=== PATIENT | female | born 1950 | race Caucasian/White ===

== ENCOUNTER → 2020-08-11 10:39 | Outpatient (BNVA) | payer MEDICARE, SELFPAY | PROVIDERS: PCP Internal Medicine; Visit Provider Internal Medicine | DX: I25.10 Atherosclerotic heart disease of native coronary artery without angina pectoris (principal); I73.9 Peripheral vascular disease, unspecified; I10 Essential (primary) hypertension; I05.9 Rheumatic mitral valve disease, unspecified | CPT/HCPCS: 93005; 99212 ==

== ENCOUNTER → 2021-02-04 10:41 | Outpatient (BNVA) | payer MEDICARE, SELFPAY | PROVIDERS: PCP Internal Medicine; Referring Provider Internal Medicine; Visit Provider Internal Medicine | DX: I25.10 Atherosclerotic heart disease of native coronary artery without angina pectoris (principal); I73.9 Peripheral vascular disease, unspecified; I05.9 Rheumatic mitral valve disease, unspecified; I10 Essential (primary) hypertension | CPT/HCPCS: 99212 ==

== ENCOUNTER → 2021-03-12 07:54 | Outpatient (REF) | payer MEDICARE, OTHER, SELFPAY ==
--- NOTE | ~2021-03-12 | NM_ITS ---
Lexiscan Myocardial perfusion study Indication: Preoperative cardiovascular evaluation Technique: The patient was brought in for a Lexiscan perfusion study on 03/12/2021 and was injected 0.4 mg of Lexiscan intravenously. Within a minute of this injection 30 mCi of sestamibi was given intravenously. Images were obtained using the SPECT gamma camera interlaced with the gating device. Images were obtained in supine position. Resting perfusion study was performed on 03/15/2021. Patient was administered 30 mCi of sestamibi intravenously at rest. Images were then obtained in supine position. Total DLP 103mGy-cm. Images were processed with the software and compared side to side in short axis, horizontal long axis and vertical long axis views. Findings: Raw acquisition was reviewed. The stress perfusion study showed slightly reduced tracer uptake in the mid to distal septum, anterior wall and lateral wall, basal inferior wall. However, with CT attenuation correction, there is significant improvement and hence most likely all soft tissue and diaphragmatic attenuation. The gated study shows normal LV systolic function with calculated LVEF of 64%. LV cavity is normal in size. The gated study shows normal wall thickening and contraction of segments. Resting study shows slightly decreased tracer uptake in the mid to distal anterior septum, distal anterior wall, basal to mid inferolateral wall. There is significant improvement with CT attenuation correction. Gating at rest reveals normal wall motion with ejection fraction at 68%. The findings are consistent with no definite reversible or fixed perfusion defects. RI/NM cardiolite stress test Impression: 1. Myocardial perfusion imaging study shows likely normal myocardial perfusion. No definitive evidence of any ischemia or infarction. 2. Gated LVEF is 64% during stress and 68% during rest. 3. Transient ischemic dilatation not present. EKG component of the test reported separately.
--- NOTE | 2021-03-12 08:03 | CA_ITS ---
Acquisition Time: 2021-03-12 08:16:23 Total Exercise Time: 00:02:00 Test Indications: PREOP Medications: SEE CHART Protocol: LEXISCAN Max HR: 109 BPM 73% of Pred: 149 BPM Max BP: 118/066 mmHG Max Work Load: 1.0 METS Pharmacological stress test with Lexican injection, while sitting and kicking her legs, without anginal symptoms, with isolated PACs and PVCs, with normotensive response to injection, with nondiagnostic EKG for ischemia. Nuclear images pending. Test reviewed with Dr Tran. Referred By: David Christensen Overread By: ILDA PARISH
== END ==
LOC: HO.CARD 07:54
PROVIDERS: PCP Internal Medicine; Visit Provider Internal Medicine
DX: Z01.810 Encounter for preprocedural cardiovascular examination (principal); I25.10 Atherosclerotic heart disease of native coronary artery without angina pectoris
CPT/HCPCS: 78452; 93017; A9500; J0280; J2785

== ENCOUNTER → 2021-08-04 09:57 | Outpatient (BNVA) | payer MEDICARE, SELFPAY | PROVIDERS: PCP Internal Medicine; Referring Provider Internal Medicine; Visit Provider Internal Medicine | DX: I25.10 Atherosclerotic heart disease of native coronary artery without angina pectoris (principal); I73.9 Peripheral vascular disease, unspecified; I35.8 Other nonrheumatic aortic valve disorders; I05.9 Rheumatic mitral valve disease, unspecified; I10 Essential (primary) hypertension | CPT/HCPCS: 93005; 99212 ==

== ENCOUNTER → 2022-01-27 10:19 | Outpatient (BNVA) | payer MEDICARE, SELFPAY | PROVIDERS: PCP Internal Medicine; Referring Provider Internal Medicine; Visit Provider Internal Medicine | DX: I25.10 Atherosclerotic heart disease of native coronary artery without angina pectoris (principal); I73.9 Peripheral vascular disease, unspecified; I10 Essential (primary) hypertension; I05.9 Rheumatic mitral valve disease, unspecified; I35.8 Other nonrheumatic aortic valve disorders; Z79.899 Other long term (current) drug therapy | CPT/HCPCS: 99212 ==

== ENCOUNTER → 2022-09-13 10:29 | Outpatient (BNVA) | payer MEDICARE, SELFPAY | PROVIDERS: PCP Internal Medicine; Referring Provider Internal Medicine; Visit Provider Internal Medicine | DX: I25.10 Atherosclerotic heart disease of native coronary artery without angina pectoris (principal); I73.9 Peripheral vascular disease, unspecified; I10 Essential (primary) hypertension; I05.9 Rheumatic mitral valve disease, unspecified; I35.8 Other nonrheumatic aortic valve disorders | CPT/HCPCS: 93005; 99212 ==

== ENCOUNTER 2023-03-23 09:10 | Outpatient (AMB) | payer MEDICARE, SELFPAY ==
[2023-03-23 09:11] VITALS: BP 136/58; PULSE 67; BMI 32.8
--- NOTE | 2023-03-23 09:11 | A.OFFVIS_ITS ---
Intake Vital Signs 03/23/23 09:11 Height 5 ft 5 in Weight 197 lb 1.492 oz BMI 32.8 BP 136/58 L Blood Pressure Location Lt brachial Position Sitting Pulse 67 Intake Visit Reasons: 6 mth s/p lipids Intake Note: 6 month follow up Edge Worker Required: No Accompanied by: Self / Same As Patient Allergies lisinopril Adverse Reaction (Unknown, Verified 03/23/23 09:17) Cough Medication List - Last Reconciled 03/23/23 by David Christensen MD amlodipine 10 mg PO DAILY aspirin 81 mg PO DAILY carvedilol 12.5 mg PO BID cilostazol 100 mg PO BID clopidogrel 75 mg PO DAILY losartan 100 mg PO DAILY rosuvastatin 40 mg PO DAILY HPI HPI Comments History of Present Illness Details Leslie returns for follow-up. To recall, she had peripheral angiogram with left iliac artery stenting 2016. However that was complicated by massive blood loss leading to hypovolemic shock. In that context, she had a non ST elevation myocardial infarction suspected to be from demand. But she was able to recover eventually. She states that she is overall doing quite good. No anginal-type symptoms or shortness of breath or in fact anything cardiac sounding. She lives in a 2nd floor unit and goes up and down with no issues and definitely no chest pains. [facility] Medical History (Updated 08/04/21 @ 11:28 by David Christensen MD) Essential hypertension Peripheral vascular disease Atherosclerotic cardiovascular disease Surgical History History of carotid endarterectomy (~03/2019) Family History Father No problems noted. Mother No problems noted. Social History Alcohol intake: current Alcohol intake frequency: holidays/special occasions only Patient Tobacco Use Status: Former Tobacco user Quit Date: Feb 2017 Years Smoked: 50 +/- Review of Systems Const Denies weakness ENT Denies dizziness Card Denies chest pain, Denies chest pain with activity, Denies syncope, Denies rapid heart rate, Denies pedal edema, Denies edema, Denies leg edema, Denies lightheadedness, Denies palpitations, Denies dyspnea, Denies dyspnea on exertion and Denies orthopnea Resp Denies cough, Denies dyspnea and Denies dyspnea on exertion GI Denies hematochezia and Denies change in stool character Musc Denies abnormal gait, Denies muscle cramps, Denies muscle weakness, Denies numbness, Denies radiating pain into limb and Denies tingling Neuro Denies abnormal gait, Denies dizziness, Denies syncope, Denies numbness, Denies tingling and Denies weakness Endo Denies palpitations Physical Exam Vital Signs: Last Vital Signs Pulse 67 03/23/23 09:11 BP 136/58 L 03/23/23 09:11 BMI result Body Mass Index 32.8 Const General: comfortable and no acute distress Orientation/consciousness: patient oriented x3 HEENT Other: Unremarkable Head: Yes normal to inspection Neck Neck: Yes normal visual inspection Chest Chest palpation & inspection: normal inspection of the chest Resp Auscultation: clear to auscultation bilaterally Cardio Palpation: normal PMI Heart sounds: S1 normal heart sound present, S2 normal heart sound present, no gallops, Murmur heart sound present systolic III/ and at the right sternal border and no rubs GI Palpation (GI): Soft to palpation Back/Spine/Pelvis Other: unremarkable Skin General skin exam: no rashes or lesions noted Neuro General: patient oriented x3 Extrem General: Yes normal to inspection Psych Mental Status: mental status grossly normal Assessment & Plan Assessment & Plan (1) Atherosclerotic cardiovascular disease: Code(s): I25.10 - Atherosclerotic heart disease of [place] coronary artery without angina pectoris Plan: Myocardial perfusion imaging for 2020 without any clear abnormalities. Overall, treat for stable vascular disease. Continue statins. Lipids are well controlled. (2) Peripheral vascular disease: Code(s): I73.9 - Peripheral vascular disease, unspecified Plan: She has had carotid endarterectomy in the left side. Her vascular issues now being followed at [facility]. She remains on long-term dual antiplatelet therapy. (3) Essential hypertension: Code(s): I10 - Essential (primary) hypertension Plan: On carvedilol, amlodipine, losartan. No changes. (4) Mitral valve annular calcification: Code(s): I05.9 - Rheumatic mitral valve disease, unspecified Plan: Last echo with mitral annular calcification but no mitral stenosis. If necessary, we can recheck. (5) Aortic valve sclerosis: Code(s): I35.8 - Other nonrheumatic aortic valve disorders Plan: Mild aortic valve calcification but no significant stenosis. Coding Level of Care Code Est Pt Level 4 (41368) Diagnoses Atherosclerotic cardiovascular disease I25.10 Peripheral vascular disease I73.9 Essential hypertension I10 Mitral valve annular calcification I05.9 Aortic valve sclerosis I35.8
== END 2023-03-23 09:27 | disposition home or self-care (01) ==
PROVIDERS: Visit Provider Internal Medicine
DX: I25.10 Atherosclerotic heart disease of native coronary artery without angina pectoris (principal); I73.9 Peripheral vascular disease, unspecified; I10 Essential (primary) hypertension; I05.9 Rheumatic mitral valve disease, unspecified; I35.8 Other nonrheumatic aortic valve disorders
CPT/HCPCS: 99214

== ENCOUNTER → 2023-03-23 09:10 | Outpatient (BNVA) | payer MEDICARE, SELFPAY | PROVIDERS: Visit Provider Internal Medicine | DX: I25.10 Atherosclerotic heart disease of native coronary artery without angina pectoris (principal); I10 Essential (primary) hypertension; I05.9 Rheumatic mitral valve disease, unspecified; I35.8 Other nonrheumatic aortic valve disorders; I73.9 Peripheral vascular disease, unspecified; Z95.5 Presence of coronary angioplasty implant and graft; Z87.891 Personal history of nicotine dependence | CPT/HCPCS: 99212 ==

== ENCOUNTER 2023-11-22 14:18 | Outpatient (AMB) | payer MEDICARE, SELFPAY ==
--- NOTE | 2023-11-22 14:18 | MHC.OFFVIS ---
Vital Signs 11/22/23 14:20 Height 5 ft 5 in Weight 188 lb BMI 31.3 BP not taken reason Patient Refused Intake Visit Reasons: Pre-op//[place]. bronchoscopy radial EBUS11/27 Record Systems Analyst Required: No Allergies lisinopril Adverse Reaction (Unknown, Verified 03/23/23 09:17) Cough Medication List - Last Reconciled 11/22/23 by David Christensen MD amlodipine 10 mg PO DAILY aspirin 81 mg PO DAILY carvedilol 12.5 mg PO BID cilostazol 100 mg PO BID clopidogrel 75 mg PO DAILY losartan 100 mg PO DAILY rosuvastatin 40 mg PO DAILY solifenacin (Vesicare) 5 mg PO DAILY HPI Comments Details: We got an urgent request for preoperative evaluation for thoracic surgery planned on 11/27. We requested her to come today for office visit, but she is unable to, and hence we did a tele visit/telephone only without video. To recall, she had peripheral angiogram with left iliac artery stenting 2016. However that was complicated by massive blood loss leading to hypovolemic shock. In that context, she had a non ST elevation myocardial infarction suspected to be from demand. But she was able to recover eventually. Otherwise, she states she generally doing fine. Really has not had any chest pain or shortness of breath or any other cardiac symptoms. She can go up 2 flights of stairs with no symptoms. [facility] Medical History (Updated 08/04/21 @ 11:28 by David Christensen MD) Essential hypertension Peripheral vascular disease Atherosclerotic cardiovascular disease Surgical History History of carotid endarterectomy (~03/2019) Family History Father No problems noted. Mother No problems noted. Social History Alcohol intake: current Alcohol intake frequency: holidays/special occasions only Patient Tobacco Use Status: Former Tobacco user Years Smoked: 50 +/- Review of Systems Const All systems reviewed & are unremarkable except as noted in HPI and below Reports as per HPI and Reports no additional complaints Eyes Reports as per HPI and Denies no additional complaints ENT Denies no additional complaints and Reports as per HPI Card Reports as per HPI, Reports no additional complaints, Denies acrocyanosis, Denies chest pain, Denies leg edema, Denies lightheadedness, Denies palpitations and Denies dyspnea Resp Reports as per HPI, Denies no additional complaints and Denies dyspnea GI Reports as per HPI and Denies no additional complaints Reports as per HPI Musc Reports no additional complaints and Reports as per HPI Skin/Breast Reports system reviewed and no additional complaints, except as documented Neuro Reports no additional complaints and Reports as per HPI Psych Reports no additional complaints and Reports as per HPI Endo Reports no additional complaints, Reports as per HPI and Denies palpitations Edward/Lymph Reports no additional complaints and Reports as per HPI Aller/Immun Reports no additional complaints and Reports as per HPI Physical Exam Vital Signs: BMI result Body Mass Index 31.3 Telehealth Telehealth Telehealth Platform: Telephone Location of provider rendering services: practice address Location of patient: address on file Patient Identification confirmed using: Name, : Yes Telehealth method: voice only Patient verbally consented to treatment: Yes Patient verbally consented to billing insurance company: Yes Patient informed of any privacy concerns related to visit: Yes Assessment & Plan Assessment & Plan (1) Preoperative cardiovascular examination: Code(s): Z01.810 - Encounter for preprocedural cardiovascular examination Category: Medical Plan: Plan for lung surgery noted. There is a risk of perioperative myocardial infarction and its associated complications. Discussed about that with patient and she understands. Cardiac risk considered to be intermediate. Recent EKG from [place]-sinus rhythm at 60/Min; leftward axis; cannot exclude old anterior infarct but could be from body habitus, lead placement. Slight nonspecific changes in lead 1/aVL but otherwise unremarkable. (2) Atherosclerotic cardiovascular disease: Code(s): I25.10 - Atherosclerotic heart disease of [place] coronary artery without angina pectoris Category: Medical Plan: Clinically, no angina. Myocardial perfusion imaging 2020 without any clear abnormalities. Echocardiogram 22-[facility] [place] shows LVEF of 60-65% with moderate to severe LVH. Overall, treat for stable vascular disease. Continue statins. Lipids are well controlled. (3) Peripheral vascular disease: Code(s): I73.9 - Peripheral vascular disease, unspecified Category: Medical Plan: She has had carotid endarterectomy in the left side. Her vascular issues now being followed at [facility] [place]. She remains on long-term dual antiplatelet therapy. (4) Essential hypertension: Code(s): I10 - Essential (primary) hypertension Category: Medical Plan: On carvedilol, amlodipine, losartan. No changes. Plan Total time spent including review of pertinent data, [facility] records, counseling, documentation, coordination of care-40 minutes. Time spent with patient 15 minutes. Coding Level of Care Code Tele Est Pt Level 4 (85828) Diagnoses Preoperative cardiovascular examination Z01.810 Atherosclerotic cardiovascular disease I25.10 Peripheral vascular disease I73.9 Essential hypertension I10
[2023-11-22 14:20] VITALS: BMI 31.3
== END 2023-11-22 15:08 | disposition home or self-care (01) ==
LOC: HO.HCS 14:18
PROVIDERS: PCP Internal Medicine; Visit Provider Internal Medicine
DX: I25.10 Atherosclerotic heart disease of native coronary artery without angina pectoris (principal); I73.9 Peripheral vascular disease, unspecified; I10 Essential (primary) hypertension; Z01.810 Encounter for preprocedural cardiovascular examination
CPT/HCPCS: 99442

== ENCOUNTER → 2023-11-22 14:18 | Outpatient (BNVA) | payer MEDICARE, SELFPAY | PROVIDERS: PCP Internal Medicine; Visit Provider Internal Medicine ==

== ENCOUNTER 2023-12-25 13:21 | Outpatient (AMB) | payer MEDICARE, SELFPAY ==
[2023-12-25 13:23] VITALS: BP 170/68; PULSE 54; O2SAT 96; BMI 29.9
--- NOTE | 2023-12-25 13:23 | A.OFFVIS_ITS ---
Vital Signs 12/25/23 13:23 Height 5 ft 5 in Weight 179 lb 10.828 oz BMI 29.9 BP 170/68 H Blood Pressure Location Lt brachial Position Sitting Pulse 54 Pulse Source Pulse Oximeter Pulse Oximetry (%) 96 Oxygen Delivery Method Room Air Intake Visit Reasons: RAMIREZ Allergies lisinopril Adverse Reaction (Unknown, Verified 12/25/23 13:28) Cough HPI HPI RAMIREZ: Details: Leslie is pleasant 73 year old female, former smoker, quit 2017 with approximately 70 pack year history with underlying COPD, HTN, HLD, PAD and MD 2017. She was referred by PCP for pulmonary evaluation. She is enrolled in the lung cancer screening program through [facility] and annual screen from 07/2023 revealed new 7 x 9 mm LLL nodule. Repeat chest CT 10/2023 revealed increasing nodule measuring 13 x [address] Mcleod performed EBUS on 11/28/23 which revealed stage 1A squamous cell carcinoma with subsequent left low er lobe wedge resection. Per referral patient will be scheduled for repeat chest CT in 6 months and monitored x 5 years, however [facility] is no longer contracted with her insurance. At this time, she feels respiratory symptoms have been well controlled, occasionally having dyspnea on exertion and intermittent dry cough with wheezing. She is not interested in a daily inhaler at this time. Presurgery spirometry revealed FEV1 62%, DLCOVA 61%. After surgery she required supplemental oxygen however checks oxygen frequently never decreasing below 94%. She denies prior history of asthma. She reports father smoker with h/o COPD, no h/o lung cancers. [facility] Medical History (Updated 12/26/23 @ 10:24 by Tahira Ramirez NP) Essential hypertension Peripheral vascular disease Atherosclerotic cardiovascular disease Surgical History History of carotid endarterectomy (~03/2019) Family History Father No problems noted. Mother No problems noted. Social History Alcohol intake: current Alcohol intake frequency: holidays/special occasions only Patient Tobacco Use Status: Former Tobacco user Years Smoked: 50 +/- Review of Systems Const Denies chills, Denies excessive sweating, Denies fever(s), Denies headache(s) and Denies night sweats Eyes Denies dry eyes, Denies irritation and Denies itchy eyes ENT Reports Normal hearing present, Denies headache(s), Denies nasal congestion, Denies nasal discharge, Denies post nasal drip and Denies sore throat Card Denies chest pain, Denies chest pain at rest, Denies chest pain with activity, Denies claudication, Denies leg edema, Denies dyspnea, Reports dyspnea on exertion, Denies orthopnea and Denies paroxysmal nocturnal dyspnea Resp Denies chest congestion, Denies cough, Denies excessive phlegm production, Denies pain on inspiration, Denies pain with cough, Denies dyspnea, Reports dyspnea on exertion, Denies stridor and Denies wheezing Musc Denies myalgias Neuro Reports Normal hearing present and Denies headache(s) Endo Denies excessive sweating Edward/Lymph Denies lymphadenopathy Aller/Immun Denies itchy eyes, Denies seasonal rhinorrhea and Denies wheezing Physical Exam Vital Signs: Last Vital Signs Pulse 54 12/25/23 13:23 BP 170/68 H 12/25/23 13:23 Pulse Ox 96 12/25/23 13:23 Oxygen Delivery Method Room Air 12/25/23 13:23 BMI result Body Mass Index 29.9 Const General: cooperative, healthy appearing, comfortable, no acute distress, well developed and alert Nutritional Appearance: obese Orientation/consciousness: patient oriented x3 Limitations: no limitations HEENT Head: Yes normal to inspection, Yes normocephalic and Yes atraumatic Ears: hearing grossly normal bilaterally and external ears normal Eyes General: appearance normal, both eyes and all related structures Eyelids: Yes eyelids normal Sclerae: sclerae normal EOM: EOMs intact bilaterally Neck Neck: Yes normal visual inspection and Yes no lymphadenopathy Lymphatic: no lymphadenopathy noted Chest Chest palpation & inspection: normal inspection of the chest Resp Effort & Inspection: normal respiratory effort, able to speak in complete sentences, no audible wheezes, no cough, no stridor, not tachypneic, no tripod positioning and no use of accessory muscles Auscultation: clear to auscultation bilaterally Cardio Jugular venous distension: no JVD Rate: regular rate Rhythm: regular rhythm Skin Other: warm, dry General skin exam: no rashes or lesions noted Neuro General: patient oriented x3 Cranial nerves: Yes Normal hearing present Cognition (Neuro): normal cognition Gait exam (Neuro): Normal gait present Extrem General: Yes normal to inspection, Yes capillary refill normal, Yes no clubbing, cyanosis or edema and Yes no pedal edema Psych Appearance: grossly normal and well kempt Speech and movement: Normal speech and movement present and Clear speech present Affect: normal affect Attitude: cooperative Thought process: Normal thought process present Thought content: Normal thought content present Insight: Good insight present (Psych) Judgement: Good judgement present (Psych) Assessment & Plan Assessment & Plan (1) COPD (chronic obstructive pulmonary disease): Code(s): J44.9 - Chronic obstructive pulmonary disease, unspecified Category: Medical (2) Personal history of tobacco use: Code(s): Z87.891 - Personal history of nicotine dependence Category: Social Hx (3) Lung cancer: Code(s): C34.90 - Malignant neoplasm of unspecified part of unspecified bronchus or lung Category: Medical (4) S/P partial lobectomy of lung: Comment: LLL wedge resection 11/2023 Code(s): Z90.2 - Acquired absence of lung [part of] Category: Surgical Plan Leslie presents for pulmonary evaluation for moderate COPD and recent diagnosis of stage 1A squamous cell carcinoma s/p LLL wedge resection 11/2023. At this time she reports occasional dyspnea on exertion, otherwise respiratory symptoms are controlled. We discussed initiating a daily inhaler however she declined at this time. She is aware to call if symptoms become more persistent. She has been checking oxygen saturation frequently, never below 94%. She is supposed to have a [address] s/p wedge resection to be scheduled at [facility] but there are insurance issues. Will send for repeat chest CT at [facility]. She is aware that the recommendations for stage 1A, is surveillance [address] x 2 years followed by annual scans until 5 years. She is requesting a referral to oncology to further workup. Will enter this. All questions were answered and patient is in agreement of plan. Will follow up to review chest CT results or sooner if needed. Orders: Orders CT chest wo IV con 5 Months C34.90 - Malignant neoplasm of unspecified part of unspecified bronchus or lung, Z90.2 - Acquired absence of lung [part of] Referrals Hematology & Oncology Referral C34.90 - Malignant neoplasm of unspecified part of unspecified bronchus or lung, Z87.891 - Personal history of nicotine dependence, Z90.2 - Acquired absence of lung [part of] Coding Level of Care Code New Pt Level 4 (43543) Diagnoses COPD (chronic obstructive pulmonary disease) J44.9 Personal history of tobacco use Z87.891 Lung cancer C34.90 S/P partial lobectomy of lung Z90.2
== END 2023-12-25 14:00 | disposition home or self-care (01) ==
PROVIDERS: PCP Internal Medicine; Visit Provider Nurse Practitioner Family
DX: J44.9 Chronic obstructive pulmonary disease, unspecified (principal); Z87.891 Personal history of nicotine dependence; C34.90 Malignant neoplasm of unspecified part of unspecified bronchus or lung; Z90.2 Acquired absence of lung [part of]
CPT/HCPCS: 99204; 99214

== ENCOUNTER → 2023-12-25 13:21 | Outpatient (BNVA) | payer MEDICARE, SELFPAY | PROVIDERS: PCP Internal Medicine; Visit Provider Nurse Practitioner Family | DX: J44.9 Chronic obstructive pulmonary disease, unspecified (principal); C34.90 Malignant neoplasm of unspecified part of unspecified bronchus or lung; Z90.2 Acquired absence of lung [part of]; Z87.891 Personal history of nicotine dependence | CPT/HCPCS: 99202 ==

== ENCOUNTER → 2024-01-22 08:11 | Outpatient (BNV) | payer MEDICARE, SELFPAY | PROVIDERS: Referring Provider Nurse Practitioner Family; Visit Provider Internal Medicine | DX: C34.90 Malignant neoplasm of unspecified part of unspecified bronchus or lung (principal) | CPT/HCPCS: 99205; G2211 ==

== ENCOUNTER 2024-06-10 13:46 | Outpatient (AMB) | payer MEDICARE, SELFPAY ==
--- NOTE | 2024-06-10 14:06 | MHC.OFFVIS ---
Vital Signs 06/10/24 14:12 Height 5 ft 5 in Weight 194 lb 7.163 oz BMI 32.4 BP 120/76 Blood Pressure Location Rt brachial Position Sitting Pulse 63 Intake Visit Reasons: 1 year fu Inclusion Internship Required: No Accompanied by: Self / Same As Patient Allergies lisinopril Adverse Reaction (Unknown, Verified 01/22/24 08:21) Cough Medication List - Last Reconciled 06/10/24 by David Christensen MD amlodipine 10 mg PO DAILY aspirin 81 mg PO DAILY carvedilol 12.5 mg PO BID cilostazol 100 mg PO BID clopidogrel 75 mg PO DAILY losartan 100 mg PO DAILY rosuvastatin 40 mg PO DAILY solifenacin (Vesicare) 5 mg PO DAILY HPI Comments Details: Leslie returns for follow-up regarding vascular disease. To recall, she had peripheral angiogram with left iliac artery stenting 2016. However that was complicated by massive blood loss leading to hypovolemic shock. In that context, she had a non ST elevation myocardial infarction suspected to be from demand. But she was able to recover eventually. In November of 2023, she underwent VATS with lobectomy for lung cancer. Apparently that went well without any issues. Overall, she states she is doing good. No cardiac complaints at this time. [facility] Medical History (Updated 01/22/24 @ 09:10 by Elizabeth Duran MD) Essential hypertension Peripheral vascular disease Atherosclerotic cardiovascular disease Surgical History S/P lobectomy of lung (~11/13/23) History of carotid endarterectomy (~03/2019) Family History Father No problems noted. Mother No problems noted. Social History Household Members: None Alcohol intake: current Alcohol intake frequency: holidays/special occasions only Patient Tobacco Use Status: Former Tobacco user Years Smoked: 50 +/- service: No Current occupational status: retired Review of Systems Const Denies chills, Denies fatigue, Denies fever(s), Denies weight gain and Denies weight loss ENT Denies dizziness Card Denies chest pain, Denies leg edema, Denies lightheadedness, Denies palpitations, Reports dyspnea, Denies dyspnea on exertion, Denies orthopnea and Denies other Resp Denies cough, Reports dyspnea and Denies dyspnea on exertion GI Denies hematochezia and Denies change in stool character Musc Denies abnormal gait, Denies muscle weakness, Denies numbness, Denies radiating pain into limb and Denies tingling Neuro Denies abnormal gait, Denies dizziness, Denies numbness and Denies tingling Endo Denies fatigue and Denies palpitations Physical Exam Vital Signs: Last Vital Signs Pulse 63 06/10/24 14:12 BP 120/76 06/10/24 14:12 BMI result Body Mass Index 32.4 Const General: comfortable and no acute distress Orientation/consciousness: patient oriented x3 HEENT Other: Unremarkable Head: Yes normal to inspection Neck Neck: Yes normal visual inspection Chest Chest palpation & inspection: normal inspection of the chest Resp Auscultation: clear to auscultation bilaterally Cardio Palpation: normal PMI Heart sounds: S1 normal heart sound present, S2 normal heart sound present, no gallops, Murmur heart sound present systolic III/ and at the right sternal border and no rubs GI Palpation (GI): Soft to palpation Back/Spine/Pelvis Other: unremarkable Skin General skin exam: no rashes or lesions noted Neuro General: patient oriented x3 Extrem General: Yes normal to inspection Psych Mental Status: mental status grossly normal Office Procedures EKG Details: EKG shows sinus rhythm, 63/Min, sinus arrhythmia, leftward axis, cannot exclude old septal infarct, nonspecific ST-T changes; [place] LA/[place]. [id number], Complete Assessment & Plan Assessment & Plan (1) Atherosclerotic cardiovascular disease: Code(s): I25.10 - Atherosclerotic heart disease of [place] coronary artery without angina pectoris Category: Medical Plan: Clinically, no angina. Myocardial perfusion imaging 2020 without any clear abnormalities. Echocardiogram 22-[facility] shows LVEF of 60-65% with moderate to severe LVH. Overall, treat for stable vascular disease. Continue statins. Lipids are well controlled. (2) Peripheral vascular disease: Code(s): I73.9 - Peripheral vascular disease, unspecified Category: Medical Plan: She has had carotid endarterectomy in the left side. Her vascular issues now being followed at [facility]. She remains on long-term dual antiplatelet therapy. (3) Essential hypertension: Code(s): I10 - Essential (primary) hypertension Category: Medical Plan: On carvedilol, amlodipine, losartan. No changes. Orders: Orders CA echo transthoracic complete 6 Months I25.10 - Atherosclerotic heart disease of [place] coronary artery without angina pectoris Coding Level of Care Code Est Pt Level 4 (77186) Diagnoses Atherosclerotic cardiovascular disease I25.10 Peripheral vascular disease I73.9 Essential hypertension I10 CPT Codes EKG - CPT: 65429-[id number], Complete ([id number])
[2024-06-10 14:12] VITALS: BP 120/76; PULSE 63; BMI 32.4
--- OUTSIDE RECORDS SUMMARY | 2024-06-10 18:28 | XMS_ITS | Clinical Summary ---
Author Organization [address] [facility] Address [address] [place] [address] Phone Care Team Providers Care Metal Bumper Name Role Phone Bibiana Hall MD Primary Care Provider [phone] Allergies Active Allergy Reactions Criticality Noted Date Comments Lisinopril 06/13/2018 Medications Medication Sig Dispensed Refills Start Date End Date Status rosuvastatin (CRESTOR) 40 mg tablet TAKE 1 TABLET BY MOUTH AT BEDTIME 90 tablet 1 03/20/2024 Active Additional Information Patient taking differently:40 mg oralNightly, at bedtime., Reported on 04/03/2024 aspirin (Adult Low Dose Aspirin) 81 mg EC tablet Take 1 tablet (81 mg total) by mouth 1 (one) time each day. Active multivit with minerals/lutein (MULTIVITAMIN 50 PLUS ORAL) Take 1 tablet by mouth. Active amLODIPine (NORVASC) 10 mg tablet Take 1 tablet (10 mg total) by mouth at bedtime. 10/23/2023 Active carvediloL (COREG) 12.5 mg tablet Take 1 tablet (12.5 mg total) by mouth 2 (two) times a day with meals. 06/05/2023 Active estradioL (ESTRACE) 0.01 % (0.1 mg/gram) vaginal cream Insert 0.5 g into the vagina 1 (one) time each day. place inside the vagina for 2 weeks at night, and then decrease to twice a week at night (Mondays and ) 10/23/2023 11/16/2024 Active losartan (COZAAR) 100 mg tablet Take 1 tablet (100 mg total) by mouth at bedtime. 06/05/2023 Active solifenacin (VESICARE) 5 mg tablet Take 1 tablet (5 mg total) by mouth 1 (one) time each day. 10/29/2023 Active cilostazoL (PLETAL) 100 mg tablet TAKE 1 TABLET BY MOUTH EVERY 12 HOURS 200 tablet 1 05/07/2024 Active clopidogreL (PLAVIX) 75 mg tablet TAKE 1 TABLET BY MOUTH DAILY 100 tablet 1 05/07/2024 Active Active Problems Problem Noted Date Diagnosed Date History of lung cancer 05/30/2024 Assessment & Plan (06/01/2024 11:31 AM EST): Ms. Angel is a 73-year-old female who had a robotic left lower lobectomy in November 2023 for stage I squamous cell carcinoma. The patient's first surveillance chest CT scan performed in May 2024 shows multiple new pulmonary nodules in the left upper lobe which appear more likely infectious or inflammatory in nature. Will follow-up on these findings with a repeat CT chest in 3 months to ensure resolution, August 2024. Will plan on seeing the patient back in the office after this repeat scan. Patient has no symptoms at today's visit indicate a pulmonary infection that would require antibiotic treatment. Pulmonary nodule 08/21/2023 Overview (04/03/2024): Last Assessment & Plan: 72-year-old woman with a now enlarging spiculated nodule in the left lower lobe suspicious for clinical stage I lung cancer until proven otherwise. I did go over her multiple imaging test as described in the HPI. We also went over the diagnosis, staging, and treatment of lung cancer which she seemed understand. I also discussed pulmonary nodules in general and how their size, shape, and growth over time affect her level of suspicion for malignancy. Again I think this is a high suspicion given all of these things. The options I discussed with her would be continued observation versus needle biopsy versus surgical wedge resection possible lobectomy. After discussing the risks and benefits of each of these options she opted for surgery. Plan then is for navigational bronchoscopy/radial EBUS with dye marking da Glenna left lower lobe wedge possible lobectomy in the coming weeks. She does have [facility] and will contact her insurance about a continuation of care letter once we give her the CPT's. Urinary incontinence 08/11/2023 Tubular adenoma 01/19/2023 Overview (04/03/2024): 8/ tubular adenomas, 2 high grade CKD (chronic kidney disease) stage 3, GFR 30-59 ml/min 11/11/2021 Type 2 diabetes mellitus with renal complication 11/11/2021 Type 2 diabetes mellitus with vascular disease 0 11/11/2021 Iliac artery stenosis, bilateral 01/08/2020 Overview (04/03/2024): Noted on arterial duplex; 01/01 Following with vascular Subclavian artery stenosis 01/07/2020 Overview (04/03/2024): Pending cta of neck, following with vascualr Carotid artery stenosis 10/03/2018 Overview (04/03/2024): Follows with vascular s/p left carotid endarterectomy 03/2019 50-69% Left stenosis; 50% right Obesity (BMI 30-39.9) 07/20/2018 DDD (degenerative disc disease), thoracolumbar 0 07/09/2018 Diverticulosis of colon 07/09/2018 Mitral valve annular calcification 07/09/2018 Overview (04/03/2024): Moderate. Mild Aortic valve calcification. ECHO 01/30/17. EF > 70 % CAD (coronary artery disease) 06/13/2018 Overview (04/03/2024): 2017 significant Troponin leak suggestive of NSTEMI ; participated in Phase II cardiac rehab () Had negative nuclear stress test with [place] [facility] January 2021 COPD (chronic obstructive pulmonary disease) Gallstones 06/13/2018 Hyperlipidemia 06/13/2018 Hypertension 06/13/2018 Microalbuminuria 06/13/2018 Peripheral artery disease 06/13/2018 Overview (04/03/2024): 2017 Left Iliac Artery stent. Perioperative extravasation Leading to massive blood loss/hypovolemic shock and Code Blue. Massive transfusions. S/p retroperitoneal bleed Resolved Problems Problem Noted Date Diagnosed Date Resolved Date Lung cancer 12/11/2023 05/30/2024 Overview (04/03/2024): 12/05 squamous cell carcinoma, left lower lobe, lobectomy Last Assessment & Plan: Ms. Angel is a 73 yr. female presenting for their 2 week follow-up status post da Glenna left lower lobectomy and mediastinal lymphadenectomy which was performed on 11/28/2023 for a stage Ia or (pT1b pN0) invasive keratinizing squamous cell carcinoma on 11/28/2023. Overall her hospital course was uneventful aside from having heightened oxygen requirements. She did have a home O2 evaluation performed which showed she required 2 L nasal cannula at all times. On . She was informed that she would be getting referred to pulmonary which she also requested to be referred to [facility] with Dr. Pat. She was informed that we did discuss her at our weekly multidisciplinary tumor board meeting with no recommendations to refer to medical oncology and instead will just continue with 6-month chest CT surveillance scans for the first 2 years following her surgical date. After completion of [address] surveillance her chest CT intervals will be increased to 12-month intervals or 3 years thereafter for a total surveillance of 5 years. Her next chest CT surveillance scan will be due in May 2024 and have a visit at the thoracic surgery department thereafter to discuss results. Encounters Date Type Department Care Team Description 06/05/2024 9:00 AM EST Ancillary Procedure [facility] [address] [place] [id number] PAD (peripheral artery disease) (CMS/HCC) 05/30/2024 11:30 AM EST Office Visit Thoracic Surgery - [place] [address] [facility] [address] [place] [id number] Charity Melgoza PA Pulmonary nodule (Primary Dx); History of lung cancer 05/22/2024 9:47 AM EST - 05/22/2024 11:59 PM EST Hospital Encounter [facility] CT Scan [address] [place] [phone] H/O malignant neoplasm of lung Discharge Disposition: Home or Self Care 05/17/2024 1:15 PM EST Ancillary Procedure [facility] [address] [place] [address] Carotid stenosis, asymptomatic, bilateral; History of left-sided carotid endarterectomy from Last 3 Months Immunizations Name Administration Dates Next Due Influenza Quadravalent, MDCK , 0.5ml, preservative free (Flucelvax) 6mo and older 07/20/2018 Influenza trivalent, 0.5mL ( Fluad) 65yo and older 01/19/2023,02/15/2022,04/28/2021,04/18,02/04/2019,02/06/2017,03/07/2016 Influenza trivalent, 0.5mL, preservative free (Fluarix; FluLaval; Fluzone) ages 6mo and older (Afluria) 3 years and older 01/24/2024 Pneumococcal conjugate 13 va lent (Prevnar 13, PCV13) 2mo and older 11/11/2021 Pneumococcal polysaccharide 23 valent (Pneumovax 23) 2yo and older 02/04/2019 Respiratory syncytial virus (RSV), unspecified 04/20/2023 Td Tetanus diptheria (Tdvax) 7yo and older 06/06/2019 Tdap Tetanus diptheria acell ular pertussis (Boostrix; Adacel) 7yo and older 03/30/2022 Surgical History Surgery Date Site/Laterality Comments OTHER SURGICAL HISTORY 2016 PROCEDURE: HISTORY OTHER; COMMENT: ruptured iliac artery s/p retroperitoneal bleed OTHER SURGICAL HISTORY 2017 Left PROCEDURE: HISTORY OTHER; COMMENT: Iliac artery endovascular stent CAROTID ENDARTERECTOMY PROCEDURE: HISTORICAL CAROTID ENDART; COMMENT: 03/2019 OTHER SURGICAL HISTORY 08/01/2023 PROCEDURE: X-RAY EXAM OF ARM/LEG ARTERY OTHER SURGICAL HISTORY 08/01/2023 PROCEDURE: NC VASCULAR EMBOLIZATION OR OCCLUSION VENOUS RS&I OTHER SURGICAL HISTORY 08/01/2023 PROCEDURE: NC VASCULAR EMBOLIZATION OR OCCLUSION ARTERIAL RS&I; COMMENT: x2 OTHER SURGICAL HISTORY 08/01/2023 PROCEDURE: ULTRASOUND GUIDANCE FOR VASCULAR AC; COMMENT: x2 OTHER SURGICAL HISTORY 08/01/2023 PROCEDURE: NC REVASC INTRAVASC LITHOTRIPSY; COMMENT: Aorta OTHER SURGICAL HISTORY 08/01/2023 Left PROCEDURE: NC REVASC INTRA LITHOTRIP-STENT; COMMENT: left AYLIN OTHER SURGICAL HISTORY 08/01/2023 Left PROCEDURE: NC REVASC INTRA LITHOTRIP-STENT; COMMENT: left, EIA OTHER SURGICAL HISTORY 11/28/2023 Left PROCEDURE: NC THORACOSCOPY W/LOBECTOMY SINGLE LOBE; COMMENT: LLL lobectomy Medical History Medical History Date Comments Hypertension 06/13/2018 DX:Hypertension Hyperlipidemia 06/13/2018 DX:Hyperlipidemi a COPD (chronic obstructive pu lmonary disease) ([facility]) 06/13/2018 DX:COPD (chronic obstructive pulmonary disease) ([facility]) Gallstones 06/13/2018 DX:Gallstones Proteinuria 06/13/2018 DX:Proteinuria; COMMENT: 08/2017 DDD (degenerative disc disea se), thoracolumbar 07/09/2018 DX:DDD (degenerative disc di sease), thoracolumbar Diverticulosis of colon 07/09/2018 DX:Diver ticulosis of colon History of atrial fibrillation 07/09/2018 D X:History of atrial fibrillation; COMMENT: In setting of hypovolemic shock/Code Blue. Beta blockers. NO anticoagulation Mitral valve annular calcification 07/09/2018 DX:Mitral valve annular calcification; COMMENT: Moderate. Mild Aortic valve calcification. ECHO 01/30/17. EF > 70 % Old TX (myocardial infarction) 06/13/2018 D X:Old TX (myocardial infarction); COMMENT: 2016 significant Troponin leak suggestive of NSTEMI ; participated in Phase II cardiac rehab () Peripheral artery disease ([facility]) 06/13/2018 DX:Peripheral artery disease ([facility]); COMMENT: 2017 Left Iliac Artery stent. Perioperative extravasation Leading to massive blood loss/hypovolemic shock and Code Blue. Massive transfusions. S/p retroperitoneal bleed Former tobacco use 07/20/2018 DX:Former tob acco use; COMMENT: Quit 03/03/2017 Obesity (BMI 30-39.9) 07/20/2018 DX:Obesity (BMI 30-39.9) Carotid artery stenosis 10/03/2018 DX:Carot id artery stenosis; COMMENT: Right: 50-69 % Left: >70 % Follows with Dr Whitfield from Vascular Tubular adenoma 01/19/2023 DX:Tubular adeno ma; COMMENT: 01/04 tubular adenomas, 2 high grade Urinary incontinence 08/11/2023 DX:Urinary incontinence Lung cancer (CMS/HCC) 12/11/2023 DX:Lung ca ncer (HCC); COMMENT: 12/05 squamous cell carcinoma, left lower lobe, lobectomy Family History Medical History Relation Name Comments Breast cancer Neg Hx Relation Name Status Comments Father Mother Social History Tobacco Use Types Packs/Day Years Used Date Smoking Tobacco: Former Cigarettes Q uit: 03/03/2017 Smokeless Tobacco: Never Tobacco Cessation:Counseling Given: Not Answered Alcohol Use Standard Drinks/Week Comments Yes 0 (1 standard drink = 0.6 oz pur e alcohol) Sex and Gender Information Value Date Recorded Sex Assigned at Not on file Gender Identity Not on file Sexual Orientation Not on file Job Start Date Occupation Industry Not on file Not on file Not on file Obstetrics History Last Filed Vital Signs Vital Sign Reading Time Taken Comments Blood Pressure 131/63 05/30/2024 11:05 AM EST Pulse 62 05/30/2024 11:05 AM EST Temperature 36.9 ??C (98.4 ??F) 05/30/2024 11:[address] Respiratory Rate 16 05/30/2024 11:05 AM EST Oxygen Saturation 97% 05/30/2024 11:05 AM EST Inhaled Oxygen Concentration - - Weight 87 kg (191 lb 11.2 oz) 05/30/2024 11:05 A M EST Height 165.1 cm (5' 5 ) 05/30/2024 11:05 AM EST Body Mass Index 31.9 05/30/2024 11:05 AM EST Plan of Treatment Upcoming Encounters Date Type Department Care Team (Late st Contact Info) Description 07/24/2024 8:30 AM EDT Office Visit Adult Medicine [address] [phone] Ilene Pittman PA [address] [place] [address] 08/15/2024 8:50 AM EDT Appointment Radiology Department - [address] [phone] 08/19/2024 10:00 AM EDT Office Visit Vascular Surgery - [place] [address] [place] [phone] Divya Jackson PA [address] [facility] [address] [place] [address] Health Maintenance Due Date Last Done Comments Diabetes: Annual Foot Exam 11/08/1959 Diabetes: Annual Retina Eye Exam 11/08/1959 Zoster Vaccines (1 of 2) 1968 RSV Immunization Patients 60+ Years Old (1 - Risk 60-74 years 1-dose series) 2009 04/20/2023 Depression Screening 04/23/2022 Falls Risk Assessment 04/23/2022 Medicare Annual Wellness Visit 04/23/2022 Social Influencers of Health Screening 04/23/2022 COVID-19 Vaccine ( season) 2024 03/09/2021, 08/14/2020, 07/16/2020 Diabetes: Blood Sugar Control Test (HGBA1C) 07/23/2024 01/24/2024, 01/24/2024 Lung Cancer Screening (Low Dose CT) 07/27/2024 07/28/2023, 07/27/2022, 07/26/2021, Additional history exists Diabetes: Annual Urine Albumin-Creatinine Ratio (uACR) 09/03/2024 09/04/2023 Diabetes: Annual GFR (Glomerular Filtration Rate) 02/01/2025 02/02/2024, 02/02/2024, 10/25/2023 Hypertension/CHF/CAD Annual BMP Blood Test 02/01/2025 02/02/2024, 02/02/2024, 10/25/2023 Breast Cancer Screening 08/07/2025 08/08/2023 Cholesterol Screening (Lipid Panel) 09/03/2028 09/04/2023 DTaP,Tdap,and Td Vaccines (3 - Td or Tdap) 03/30/2032 03/30/2022, 06/06/2019 Colorectal Cancer Screening: Colonoscopy 12/28/2032 12/28/2022 Osteoporosis Screening (Bone Density Screening) 08/07/2033 08/08/2023 Hepatitis C Screening Completed 02/04/2019 Pneumococcal Vaccine: 65+ Years Completed 11/11/2021, 02/04/2019 RSV Immunization Patients Under 20 months Aged Out 04/20/2023 No longer eligible based on patient's age to complete this topic Influenza Vaccine Completed 01/24/2024, , 02/15/2022, Additional history exists HIB Vaccines Aged Out No longer eligi ble based on patient's age to complete this topic HPV Vaccines Aged Out No longer eligi ble based on patient's age to complete this topic Hepatitis A Vaccines Aged Out No long er eligible based on patient's age to complete this topic Hepatitis B Vaccines Aged Out No long er eligible based on patient's age to complete this topic IPV Vaccines Aged Out No longer eligi ble based on patient's age to complete this topic MMR Vaccines Aged Out No longer eligi ble based on patient's age to complete this topic Meningococcal ACWY Vaccine Aged Out N o longer eligible based on patient's age to complete this topic Varicella Vaccines Aged Out No longer eligible based on patient's age to complete this topic Procedures Procedure Name Priority Date/Time Associated Diagnosis Comments VAS US DUPLEX LOWER EXT ARTERIES BILAT WITH IGNACIO Routine 06/05/2024 9:55 AM EST PAD (peripheral artery disease) (CMS/HCC) CT CHEST WO CONTRAST Routine 05/22/2024 9:56 AM EST H/O malignant neoplasm of lung VAS US DUPLEX CAROTID BILATERAL Routine 05/17/2024 1:27 PM EST Carotid stenosis, asymptomatic, bilateral History of left-sided carotid endarterectomy ANNUAL BMP BLOOD TEST Routine 02/02/2024 HEMOGLOBIN A1C Routine 01/24/2024 URINE ALBUMIN CREATININE RATIO Routine 09/04/2023 LIPID PANEL Routine 09/04/2023 SCR MAMMO BI INCL CAD Routine 08/08/2023 2:42 PM EDT Encounter for screening mammogram for malignant neoplasm of breast DXA BONE DENSITY STUDY 1+ SITS AXIAL SKEL Routine 08/08/2023 2:40 PM EDT Unspecified menopausal and perimenopausal disorder CT LUNG SCREENING LOW DOSE Routine 07/28/2023 3:21 PM EDT Personal history of nicotine dependence HM COLONOSCOPY Routine 12/28/2022 HEPATITIS C SCREENING Routine 02/04/2019 from Last 3 Months or Most Recently Relevant to Health Maintenance Results * Vascular US duplex lower extremity arteries bilateral with IGNACIO (06/05/2024 9:55 AM EST) Left Dist External Iliac PSV 179 cm/s CV VAS LAB Left Prox External Iliac PSV 198 cm/s CV VAS LAB Left AT dist sys PSV 18 cm/s CV VAS LAB Left AT mid sys PSV 20 cm/s CV VAS LAB Left AT prox sys PSV 42 cm/s CV VAS LAB Left CRAPS MANAGER prox sys PSV 137 cm/s CV VAS LAB Left mid peroneal sys PSV 54 cm/s CV VAS LAB Left popliteal dist sys PSV 47 cm/s CV VAS LAB Left popliteal prox sys PSV 46 cm/s CV VAS LAB Left PT dist sys PSV 32 cm/s CV VAS LAB Left PT mid sys PSV 31 cm/s CV VAS LAB Left PT prox sys PSV 39 cm/s CV VAS LAB Left profunda sys PSV 117 cm/s CV VAS LAB Left super femoral dist sys PSV 0 cm/s CV VAS LAB Left super femoral mid sys PSV 0 cm/s CV VAS LAB Left super femoral prox sys PSV 0 cm/s CV VAS LAB Right Dist External Iliac PSV 316 cm/s CV VAS LAB Right Prox External Iliac PSV 263 cm/s CV VAS LAB Right AT dist sys PSV 32 cm/s CV VAS LAB Right AT mid sys PSV 31 cm/s CV VAS LAB Right AT prox sys PSV 89 cm/s CV VAS LAB Right CRAPS MANAGER prox sys PSV 218 cm/s CV VAS LAB Right mid peroneal sys PSV 23 cm/s CV VAS LAB Right popliteal dist sys PSV 44 cm/s CV VAS LAB Right popliteal prox sys PSV 69 cm/s CV VAS LAB Right PT dist sys PSV 47 cm/s CV VAS LAB Right PT mid sys PSV 52 cm/s CV VAS LAB Right PT prox sys PSV 42 cm/s CV VAS LAB Right profunda sys PSV 454 cm/s CV VAS LAB Right super femoral dist sys PSV 316 cm/s CV VAS LAB Right super femoral mid sys PSV 0 cm/s CV VAS LAB Right super femoral prox sys PSV 27 cm/s CV VAS LAB Right arm BP 125 mmHg CV VAS LAB Left arm BP 185 mmHg CV VAS LAB Right posterior tibial 116 mmHg CV VAS LAB Right Dorsalis Pedis 109 mmHg CV VAS LAB Right IGNACIO 0.63 CV VAS LAB Left posterior tibial 133 mmHg CV VAS LAB Left Dorsalis Pedis 139 mmHg CV VAS LAB Left IGNACIO 0.75 CV VAS LAB Anatomical Region Laterality Modality Vascular, Abdomen Ultrasound Narrative 06/07/2024 9:37 AM EST Right le. ??Moderately to severely abnormal ankle-brachial index at 0.63 2. ??The distal external iliac artery has a moderate stenosis (20-49%). 3. ??The profunda femoral artery has a moderate stenosis (20-49%). 4. ??There is evidence of an occlusion of the mid superficial femoral artery. There is evidence of collateral flow at the level of the proximal to mid superficial femoral artery. ??There is reconstitution of flow at the level of the distal superficial femoral artery. 5. ??There is evidence of a moderate stenosis (20-49%) in the proximal anterior tibial artery. Left le. ??Mildly abnormal ankle-brachial index at 0.75 2. ??There is evidence of a moderate stenosis (20-49%) of the left external iliac artery 3. ??There is an occlusion of the proximal to mid superficial femoral artery. ??There is evidence of collateral flow at the level of the distal superficial femoral artery with reconstitution of flow at the level of the proximal popliteal artery. 4. ??There is evidence of a severe stenosis (50-99%) in the distal popliteal artery. Right IGNACIO Right BP= 125/69 Left IGNACIO Left BP= 185/62 Right Lower Arterial Duplex The proximal external iliac artery has triphasic flow. The distal external iliac artery has biphasic flow. The common femoral artery has biphasic flow. The profunda femoris artery has biphasic flow. The superficial femoral artery has monophasic flow. Segment of occlusion in the proximal/mid superficial femoral artery. The mid superficial femoral artery is turbulent. The popliteal artery has monophasic flow. The proximal anterior tibial artery has biphasic flow. The mid anterior tibial artery has monophasic flow. The distal anterior tibial artery has monophasic flow. The posterior tibial artery has monophasic flow. The mid peroneal artery has monophasic flow. Left Lower Arterial Duplex The distal external iliac artery has biphasic flow. The common femoral artery has biphasic flow. The profunda femoris artery has biphasic flow. The superficial femoral artery has absent flow. Multiple collaterals seen throughout. The proximal popliteal artery has biphasic flow. The distal popliteal artery has monophasic flow. The anterior tibial artery has monophasic flow. The posterior tibial artery has biphasic flow. The mid peroneal artery has biphasic flow. Car Hiker Details A cartagena scale, color and doppler analysis ultrasound was performed. During the study longitudinal views were obtained. Pulsed wave doppler was performed. Divya NAVARRO CV VASCULAR PROCEDUR ES * CT Chest wo Contrast (05/22/2024 9:56 AM EST) Anatomical Region Laterality Modality Body Computed Tomogra phy 05/27/2024 12:0 2 PM EST Impressions 05/27/2024 12:23 PM EST Impression: 1. Status post interim left lower lobectomy. 2. Multiple new left upper lobe nodules, possibly representing an infectious/inflammatory process, for which a follow-up CT is recommended in one month 3. No developing thoracic lymphadenopathy. 4. 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 arteries. (Patient has findings consistent with this diagnosis on a 2021 carotid ultrasound which shows abnormal vertebral artery waveforms consistent with bilateral subclavian steal phenomena.) Merle NAVARRO ([id number]) -------- FINAL REPORT -------- Dictated By: Kenna Rao Dictated Date: 05/27/2024 12:02 ET Assigned Physician: Kenna Rao Reviewed and Electronically Signed By: Kenna Rao Signed Date: 05/27/2024 12:23 ET Workstation ID: [id number] Transcribed By: Self Edit Transcribed Date: 05/27/2024 12:02 ET Narrative 05/27/2024 12:23 PM EST History: Non-small cell lung carcinoma status post left lower lobectomy 11/28/23. Surveillance. Comparison: 10/30/23 Technique: Helical volumetric imaging of the thorax was performed without IV contrast. DLP: 325.39 mGy/cm Infinite Enzymeser Iterative reconstruction technique Findings: Interim left lower lobectomy sequelae are noted. The trachea and remaining central bronchial tree are patent. Diffuse bronchial wall thickening is unchanged, consistent with bronchitis in this setting. Extensive centrilobular emphysema is again noted. Mild juxtamediastinal/juxtapleural atelectasis is again seen at the base of the right middle lobe and lingula. Multiple new nodules are identified in the left upper lobe in close proximity and include a solid nodules measuring 7 x 8 mm (image 66 series 3), 5 mm (image 77) and 9 mm (image 84) and a part solid nodule measuring approximately 19 x 14 mm (image 67). This may represent an infectious/inflammatory process. A 5 mm solid, noncalcified nodule with indistinct margins is unchanged in the right upper lobe periphery (image 75 series 3). Trace pleural effusion versus pleural thickening at the base the left hemithorax is consistent with the interim surgical procedure. Mild enlargement of the left heart chambers is unchanged. Coronary artery calcification is again noted and there is extensive mural calcification of the thoracic aorta. Heavy calcification is seen at the origin of the right subclavian artery and there is heavy calcification centered approximately 2 cm distal to the left subclavian artery origin, suspicious for underlying severe stenoses. No significant change is seen. No developing thoracic lymphadenopathy is noted. The partially imaged thyroid gland is without suspicious nodule. A small portion of the upper abdomen included on the lowest images through the thorax is remarkable for a stable 7 mm circumscribed hypoattenuating lesion in the dome of the liver, most likely a cyst. A 3.8 x 2.7 cm fatty mass arising from the left adrenal gland is unchanged, consistent with a myelolipoma. Diverticulosis of the partially imaged colon is seen. No suspicious osseous destructive lesion is identified. Procedure Note Kenna Rao MD - 05/27/2024 History: Non-small cell lung carcinoma status post left lower lobectomy11/28/23. Surveillance. Comparison: 10/30/23 Technique: Helical volumetric imaging of the thorax was performed withoutIV contrast. DLP: 325.39 mGy/cm Infinite Enzymeser Iterative reconstruction technique Findings: Interim left lower lobectomy sequelae are noted. The trachea and remainingcentral bronchial tree are patent. Diffuse bronchial wall thickening isunchanged, consistent with bronchitis in this setting. Extensivecentrilobular emphysema is again noted. Mild juxtamediastinal/juxtapleural atelectasis is again seen at the baseof the right middle lobe and lingula. Multiple new nodules are identified in the left upper lobe in closeproximity and include a solid nodules measuring 7 x 8 mm (image 66 series3), 5 mm (image 77) and 9 mm (image 84) and a part solid nodule measuringapproximately 19 x 14 mm (image 67). This may represent aninfectious/inflammatory process. A 5 mm solid, noncalcified nodule with indistinct margins is unchanged inthe right upper lobe periphery (image 75 series 3). Trace pleural effusion versus pleural thickening at the base the lefthemithorax is consistent with the interim surgical procedure. Mild enlargement of the left heart chambers is unchanged. Coronary arterycalcification is again noted and there is extensive mural calcification ofthe thoracic aorta. Heavy calcification is seen at the origin of the rightsubclavian artery and there is heavy calcification centered approximately2 cm distal to the left subclavian artery origin, suspicious forunderlying severe stenoses. No significant change is seen. No developingthoracic lymphadenopathy is noted. The partially imaged thyroid gland iswithout suspicious nodule. A small portion of the upper abdomen included on the lowest images throughthe thorax is remarkable for a stable 7 mm circumscribed hypoattenuatinglesion in the dome of the liver, most likely a cyst. A 3.8 x 2.7 cm fattymass arising from the left adrenal gland is unchanged, consistent with amyelolipoma. Diverticulosis of the partially imaged colon is seen. No suspicious osseous destructive lesion is identified. IMPRESSION: Impression: 1. Status post interim left lower lobectomy. 2. Multiple new left upper lobe nodules, possibly representing aninfectious/inflammatory process, for which a follow-up CT is recommendedin one month 3. No developing thoracic lymphadenopathy. 4. 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 arteries.(Patient has findings consistent with this diagnosis on a 2021 carotidultrasound which shows abnormal vertebral artery waveforms consistent withbilateral subclavian steal phenomena.) Merle NAVARRO () -------- FINAL REPORT -------- Dictated By: Kenna Rao Dictated Date: 05/27/2024 12:02 ET Assigned Physician: Kenna Rao Reviewed and Electronically Signed By: Kenna Rao Signed Date: 05/27/2024 12:23 ET Workstation ID: [id number] Transcribed By: Self Edit Transcribed Date: 05/27/2024 12:02 ET Francesco NAVARRO IMG CT PROCEDURE S * Vascular US duplex carotid bilateral (05/17/2024 1:27 PM EST) Left CCA dist sys 163 cm/s CV [facility] LAB Left CCA dist [place] 35 cm/s CV [facility] LAB LEFT COMMON CAROTID ARTERY MID S 139 cm/s CV VAS LAB LEFT COMMON CAROTID ARTERY MID D 25 cm/s CV VAS LAB Left CCA prox sys 134 cm/s CV VAS LAB Left CCA prox [place] 36 cm/s CV VAS LAB Left ICA dist sys 149 cm/s CV VAS LAB Left ICA dist [place] 19 cm/s CV VAS LAB Left ICA mid sys 153 cm/s CV VAS LAB Left ICA mid [place] 33 cm/s CV VAS LAB Left ICA prox sys 167 cm/s CV VAS LAB Left ICA prox [place] 23 cm/s CV VAS LAB Left ECA sys 279 cm/s CV VAS LAB LEFT EXTERNAL CAROTID ARTERY D 62 cm/s CV VAS LAB Left Prox Subclavian PSV 236 cm/s CV VAS LAB Left vertebral sys 0 cm/s CV V[facility] LAB Right cca dist sys 122 cm/s CV VAS LAB Right CCA dist [place] 22 cm/s CV VAS LAB RIGHT COMMON CAROTID ARTERY MID S 99 cm/s CV VAS LAB RIGHT COMMON CAROTID ARTERY MID D 18 cm/s CV VAS LAB Right CCA prox sys 112 cm/s CV VAS LAB Right CCA prox [place] 18 cm/s CV VAS LAB Right ICA dist sys 137 cm/s CV VAS LAB Right ICA dist [place] 30 cm/s CV VAS LAB Right ICA mid sys 184 cm/s CV VAS LAB Right ICA mid [place] 29 cm/s CV VAS LAB Right ICA prox sys 185 cm/s CV VAS LAB Right ICA prox [place] 25 cm/s CV VAS LAB Right eca sys 617 cm/s CV VAS LAB RIGHT EXTERNAL CAROTID ARTERY D 36 cm/s CV VAS LAB Right Prox Subclavian PSV 230 cm/s CV VAS LAB Right vertebral sys 77 cm/s CV VAS LAB Anatomical Region Laterality Modality Vascular, Abdomen Ultrasound Narrative 05/20/2024 8:37 AM EST ?Right ICA: There is mild plaque. ?Left ICA: There is mild heterogeneous plaque. Right Right ICA has 50 to 69% stenosis. Mildly elevated flow velocity in the right subclavian artery. ??However there is retrograde right vertebral flow with more than 20 mmHg right brachial pressure drop, consistent with right subclavian steal physiology. Left Less than 50% stenosis in the left ICA. Elevated flow velocity in the left subclavian artery. No flow detected in the left vertebral artery. Compared to previous study of 10/13/2022, ICA stenosis remains similar. ?? Right subclavian steal physiology is similar. The left vertebral artery appears occluded with current study. Right Carotid The CCA has minimal heterogeneous plaque. The ICA has mild plaque. The ECA has moderate heterogeneous plaque. The vertebral artery flow is retrograde. RT- 110/74 LT- 135/70 Left Carotid The CCA has minimal heterogeneous plaque. The ICA has mild heterogeneous plaque. The ECA has mild heterogeneous plaque. Vertebral flow is antegrade. Car Hiker Details A cartagena scale, color and doppler analysis ultrasound was performed. During the study longitudinal and transverse views were obtained. Pulsed wave doppler was performed. Overall the study quality was adequate. Divya NAVARRO CV VASCULAR PROCEDUR ES * Annual BMP Blood Test (02/02/2024) [facility] Annual BMP Blood Test abstracted Historical Provider MD DOM MEDINA E * Hemoglobin A1c (01/24/2024) [facility] Hemoglobin A1C 5.6 6.5 % Blood Venous blood specimen / Unknown Historical Provider LAB BLOOD ORDERAB LES * HM Urine Albumin Creatinine Ratio (09/04/2023) HM Urine Albumin Creatinine Ratio abstracted Historical Provider [facility] * Lipid panel (09/04/2023) LDL/HDL Ratio 2 0 - 4 Triglycerides 122 0 - 150 mg/dL Cholesterol 173 0 - 200 mg/dL HDL 82 40 mg/dL LDL Cholesterol 67 0 - 100 mg/dL Blood Venous blood specimen / Unknown Historical Provider LAB BLOOD ORDERAB LES * SCR MAMMO BI INCL CAD (08/08/2023 2:42 PM EDT) Anatomical Region Laterality Modality Radiographic Yesenia ging 01/19/2023 2:20 PM EDT Narrative 08/09/2023 9:28 AM EDT This is a summary report. The complete report is available in the patient's medical record. If you cannot access the medical record, please contact the sending organization for a detailed fax or copy. Full field digital screening 2D C views and tomosynthesis mammography, reviewed with CAD and compared to previous. The breasts are composed of fatty and fibroglandular tissue. ??No suspicious mass, architectural distortion or suspicious calcifications are identified. IMPRESSION: : No mammographic evidence of malignancy. BIRADS 1-Negative; N. 5 year breast cancer risk assessment 1.6 % Lifetime breast cancer risk assessment 3.9 % Breast cancer risk category Breast cancer risk not assessed Procedure Note Zuleyma Carolina MD - 01/01/2024 This is a summary report. The complete report is available in thepatient's medical record. If you cannot access the medical record, pleasecontact the sending organization for a detailed fax or copy. Full field digital screening 2D C views and tomosynthesis mammography,reviewed with CAD and compared to previous. The breasts are composed offatty and fibroglandular tissue. No suspicious mass, architecturaldistortion or suspicious calcifications are identified. IMPRESSION: : No mammographic evidence of malignancy. BIRADS 1-Negative; N. 5 year breast cancer risk assessment 1.6 % Lifetime breast cancer risk assessment 3.9 % Breast cancer risk category Breast cancer risk not assessed Bibiana Hall MD IMG XR PROCEDURES * DXA BONE DENSITY STUDY 1+ SITS AXIAL SKEL (08/08/2023 2:40 PM EDT) Anatomical Region Laterality Modality Bone Densitometr y 06/06/2022 8:44 AM EST Narrative 08/08/2023 7:40 PM EDT BONE DENSITY SCAN (DEXA) ? FINDINGS: Lumbar Spine T-score is 1.4. ?? (SD relative to 20-29 y/o adult) Z-score is 3.7. ??(SD relative to age matched peers) This is considered normal by WHO criteria. Left Hip T-score is -1.0. Z-score is 1.0. This is considered normal by WHO criteria. Comparison: None. Lateral survey view of the thoracolumbar spine shows no significant compression deformities. IMPRESSION: IMPRESSION: Normal bone mineral density by WHO criteria. The [facility] Department of Internal Medicine recommends using National Osteoporosis Foundation (NOF) guidelines in treatment decisions related to osteoporosis. NOF guidelines suggest considering treatment for postmenopausal women and men aged 50 or older presenting with the following: History of hip or vertebral fracture. T-score = -2.5 (DXA) at the femoral neck, total hip, or spine, after appropriate evaluation to exclude secondary causes. Low bone mass (T-score between -1.0 and -2.5 at the femoral neck or spine) AND a 10-year probability of a hip fracture = 3% OR a 10-year probability of a major osteoporosis-related fracture = 20% based on the [place]-adapted WHO algorithm Please note that all treatment decisions require clinical judgment and consideration of individual patient factors, including patient preferences, co-morbidities, previous drug use, risk factors not captured in the FRAX model (e.g., frailty, falls, vitamin D deficiency, increased bone turnover, interval significant decline in bone density) and possible under- or over-estimation of fracture risk by FRAX. Optional alternative screening schedule based on josephine Presley., [facility] June 02, 2011 for patients with osteopenia (based on hip BMD T-score) is as follows: * ??advanced osteopenia (T scores -2.00 to -2.49), BMD testing every year * ??moderate osteopenia (T scores -1.50 to -1.99), BMD testing every 5 years mild osteopenia or normal BMD (T scores -1.50 and higher), BMD testing every 15 years Procedure Note Nevin Gupta MD - 01/01/2024 BONE DENSITY SCAN (DEXA) FINDINGS: Lumbar Spine T-score is 1.4. (SD relative to 20-29 y/o adult) Z-score is 3.7. (SD relative to age matched peers) This is considered normal by WHO criteria. Left Hip T-score is -1.0. Z-score is 1.0. This is considered normal by WHO criteria. Comparison: None. Lateral survey view of the thoracolumbar spine shows no significantcompression deformities. IMPRESSION: IMPRESSION: Normal bone mineral density by WHO criteria. The [facility] Department of Internal Medicine recommendsusing National Osteoporosis Foundation (NOF) guidelines in treatment decisions related toosteoporosis. NOF guidelines suggest considering treatment for postmenopausal women and menaged 50 or older presenting with the following: History of hip or vertebral fracture. T-score = -2.5 (DXA) at the femoral neck, total hip, or spine, afterappropriate evaluation to exclude secondary causes. Low bone mass (T-score between -1.0 and -2.5 at the femoral neck or spine)AND a 10-year probability of a hip fracture = 3% OR a 10-year probability of a majorosteoporosis-related fracture = 20% based on the [place]-adapted WHO algorithm Please note that all treatment decisions require clinical judgment andconsideration of individual patient factors, including patient preferences, co- morbidities,previous drug use, risk factors not captured in the FRAX model (e.g., frailty, falls, vitaminD deficiency, increased bone turnover, interval significant decline in bone density) andpossible under- or over-estimation of fracture risk by FRAX. Optional alternative screening schedule based on Sakina et al., [facility] 2011 for patients with osteopenia (based on hip BMD T-score) is as follows: * advanced osteopenia (T scores -2.00 to -2.49), BMD testing every year * moderate osteopenia (T scores -1.50 to -1.99), BMD testing every 5years mild osteopenia or normal BMD (T scores -1.50 and higher), BMD testingevery 15 years Bibiana Hall MD IMG DXA PROCEDURES * CT LUNG SCREENING LOW DOSE (07/28/2023 3:21 PM EDT) Anatomical Region Laterality Modality Computed Tomogra phy 07/28/2023 2:34 PM EDT Narrative 07/28/2023 3:21 PM EDT [facility] Diagnostic Imaging Department [address] [place] [address] Patient: ??STANLEYSUDHEER A ?/Age/Sex: 1950 - 72 - F Unit#: ??[id number] ? Location/Status: ??SPDICATLS/REG CLI ? Mnemonic/Ordering Site: ??CTLUNGLD/SPCT Ordering Physician: ??STEPHANE RILEY MD CT Lung Screening Low Dose - 07/28/23 - 1444 Report Status:Signed Chest CT, 07/28/2023 3:11 PM. TECHNIQUE: Low-dose CT of the chest without intravenous contrast administration. ??Coronal and sagittal reformats and MIP reconstructions were created. HISTORY: LOW DOSE SCREENING COMPARISON: 07/27/2022. FINDINGS: Lungs/pleura: Normal caliber airways. ??No endobronchial nodule. ??Moderate centrilobular emphysema. ??New 7 x 9 mm left lower lobe nodule, series 3 image 163. ??Stable irregular 4 mm nodule in the right upper lobe, image 70. ??Linear bands of scarring or atelectasis in the lingula and inferior right middle lobe. No pleural effusion or pneumothorax. Mediastinum/farhad: Small calcification in the rightward thyroid isthmus. ??No mass or adenopathy. Vasculature: Upper normal size pulmonary arteries. ??Extensive atherosclerotic calcifications of the aorta and great vessels. Cardiac: Severe mitral annular and moderate coronary artery calcification. Chest wall: No mass or adenopathy. Limited abdomen: Stable small low-attenuation lesion in the right hepatic lobe, probably a cyst. Bones: Demineralized. ??Mild degenerative changes of the spine. IMPRESSION: New irregular left lower lobe pulmonary nodule measuring 7 x 9 mm. ??Lung RADS 4A. ??This finding should be closely followed. ??Guidelines recommend 3 month low-dose CT or evaluation with PET. ??Size of this nodule is borderline for evaluation with PET. Dictating Physician: ??LEXIE BURNS MD Electronically Signed by: ??LEXIE BURNS MD Dic Date/Time: ??07/28/23 1511 Sign date/Time: ??07/28/23 1521 Procedure Note Lexie Burns MD - 01/01/2024 [facility] Diagnostic Imaging Department [address] [place] [id number] Patient: SUDHEER ANGEL /Age/Sex: 1950 - 72 - F Unit#: [id number] Location/Status: SPDICATLS/REG CLI Mnemonic/Ordering Site: [facility] Ordering Physician: STEPHANE RILEY MD CT Lung Screening Low Dose - 07/28/23 - 1444 Report Status:Signed Chest CT, 07/28/2023 3:11 PM. TECHNIQUE: Low-dose CT of the chest without intravenous contrast administration. Coronal and sagittal reformats and MIP reconstructionswere created. HISTORY: LOW DOSE SCREENING COMPARISON: 07/27/2022. FINDINGS: Lungs/pleura: Normal caliber airways. No endobronchial nodule.Moderate centrilobular emphysema. New 7 x 9 mm left lower lobe nodule, series 3image 163. Stable irregular 4 mm nodule in the right upper lobe, image 70.Linear bands of scarring or atelectasis in the lingula and inferior right middlelobe. No pleural effusion or pneumothorax. Mediastinum/farhad: Small calcification in the rightward thyroid isthmus.No mass or adenopathy. Vasculature: Upper normal size pulmonary arteries. Extensiveatherosclerotic calcifications of the aorta and great vessels. Cardiac: Severe mitral annular and moderate coronary arterycalcification. Chest wall: No mass or adenopathy. Limited abdomen: Stable small low-attenuation lesion in the right hepaticlobe, probably a cyst. Bones: Demineralized. Mild degenerative changes of the spine. IMPRESSION: New irregular left lower lobe pulmonary nodule measuring 7 x 9 mm. LungRADS 4A. This finding should be closely followed. Guidelines recommend 3month low-dose CT or evaluation with PET. Size of this nodule is borderlinefor evaluation with PET. Dictating Physician: LEXIE BURNS MD Electronically Signed by: LEXIE BURNS MD Dic Date/Time: 07/28/23 1511 Sign date/Time: 07/28/23 1521 Stephane Riley MD IMG CT PROCEDURES * Colonoscopy (12/28/2022) Colonoscopy no interpretation , abstracted Anatomical Region Laterality Modality Other Historical Provider MD DOM Deutsch * Hepatitis C Screening (02/04/2019) Hepatitis C Screening abstracted Historical Provider MD DOM Deutsch from Last 3 Months or Most Recently Relevant to Health Maintenance Care Teams Metal Bumper Relationship Specialty Start Date End Date Bibiana Hall MD [address] [place] [address] PCP - General Internal Medicine 04/27/21
--- OUTSIDE RECORDS SUMMARY | 2024-06-10 18:28 | XMS_ITS | Encounter Summary ---
Author Organization [facility] Address [address] [place] [address] Care Team Providers Care Incident Response Lead Name Role Phone Bibiana Hall MD Primary Care Provider [phone] Reason for Referral * Imaging (Routine) - Closed Specialty Diagnoses / Procedures Referred By Hong coyne Referred To Contact Radiology Diagnoses H/O malignant neoplasm of lung Procedures CT Chest wo Contrast Francesco Ordonez PA [address] [address] Referral ID Status Reason Start Date Expiration Date Visits Re quested Visits Authorized [id number] Closed 04/22/2024 04/22/2025 1 1 Reason for Visit * Imaging (Routine) - Closed Specialty Diagnoses / Procedures Referred By Hong coyne Referred To Contact Radiology Diagnoses H/O malignant neoplasm of lung Procedures CT Chest wo Contrast Francesco Ordonez PA [address] [address] Referral ID Status Reason Start Date Expiration Date Visits Re quested Visits Authorized [id number] Closed 04/22/2024 04/22/2025 1 1 Encounter Details Date Type Department Care Team (Latest Contact Info) Description 05/22/2024 9:47 AM EST - 05/22/2024 11:59 PM [facility] Hospital Encounter [facility] CT Scan [address] [place] [address] H/O malignant neoplasm of lung Discharge Disposition: Home or Self Care Social History Tobacco Use Types Packs/Day Years Used Date Smoking Tobacco: Former Cigarettes Q uit: 03/03/2017 Smokeless Tobacco: Never Alcohol Use Standard Drinks/Week Comments Yes 0 (1 standard drink = 0.6 oz pur e alcohol) Sex and Gender Information Value Date Recorded Sex Assigned at Not on file Gender Identity Not on file Sexual Orientation Not on file Job Start Date Occupation Industry Not on file Not on file Not on file documented as of this encounter Medications at Time of Discharge Medication Sig Dispensed Refills Start Date End Date amLODIPine (NORVASC) 10 mg tablet Take 1 tablet (10 mg total) by mouth at bedtime. 10/23/2023 aspirin (Adult Low Dose Aspirin) 81 mg EC tablet Take 1 tablet (81 mg total) by mouth 1 (one) time each day. carvediloL (COREG) 12.5 mg tablet Take 1 tablet (12.5 mg total) by mouth 2 (two) times a day with meals. 06/05/2023 cilostazoL (PLETAL) 100 mg tablet TAKE 1 TABLET BY MOUTH EVERY 12 HOURS 200 tablet 1 05/07/2024 clopidogreL (PLAVIX) 75 mg tablet TAKE 1 TABLET BY MOUTH DAILY 100 tablet 1 05/07/2024 estradioL (ESTRACE) 0.01 % (0.1 mg/gram) vaginal cream Insert 0.5 g into the vagina 1 (one) time each day. place inside the vagina for 2 weeks at night, and then decrease to twice a week at night (Mondays and ) 10/23/2023 11/16/2024 losartan (COZAAR) 100 mg tablet Take 1 tablet (100 mg total) by mouth at bedtime. 06/05/2023 multivit with minerals/lutein (MULTIVITAMIN 50 PLUS ORAL) Take 1 tablet by mouth. rosuvastatin (CRESTOR) 40 mg tablet TAKE 1 TABLET BY MOUTH AT BEDTIME 90 tablet 1 03/20/2024 solifenacin (VESICARE) 5 mg tablet Take 1 tablet (5 mg total) by mouth 1 (one) time each day. 10/29/2023 documented as of this encounter Discharge Disposition Disposition Code Departure Means Destination Home or Self Care documented in this encounter Plan of Treatment Upcoming Encounters Date Type Department Care Team (Late st Contact Info) Description 07/24/2024 8:30 AM EDT Office Visit Adult Medicine [facility] - [address] [address] Ilene Pittman PA [address] [place], [place] 08/15/2024 8:50 AM EDT Appointment Radiology Department - [address] [address] 08/19/2024 10:00 AM EDT Office Visit Vascular Surgery - [place] [address] [facility] [address] [place] [address] Divya Jackson PA [address] [facility] [address] [place] [address] documented as of this encounter Procedures Procedure Name Priority Date/Time Associated Diagnosis Comments CT CHEST WO CONTRAST Routine 05/22/2024 9:56 AM EST H/O malignant neoplasm of lung documented in this encounter Results * CT Chest wo Contrast (05/22/2024 9:56 [...] waveforms consistent with bilateral subclavian steal phenomena.) Telerad PA ([id number]) -------- FINAL REPORT -------- Dictated By: Kenna Rao Dictated Date: 05/27/2024 12:02 ET Assigned Physician: Kenna Rao Reviewed and Electronically Signed By: Kenna Rao Signed Date: 05/27/2024 12:23 ET Workstation ID: [id number] Transcribed By: Self Edit Transcribed Date: 05/27/2024 12:02 ET Narrative 05/27/2024 12:23 PM EST History: Non-small cell lung carcinoma status post left lower lobectomy 11/28/23. Surveillance. Comparison: 10/30/23 Technique: Helical volumetric imaging of the thorax was performed without IV contrast. DLP: 325.39 mGy/cm DiscoveRX Iterative reconstruction technique Findings: Interim left lower [...] was performed withoutIV contrast. DLP: 325.39 mGy/cm [employer] ([employer]er Iterative reconstruction technique Findings: Interim left lower [...] artery waveforms consistent withbilateral subclavian steal phenomena.) Telerad RAMON ([id number]) -------- FINAL REPORT -------- Dictated By: Kenna Rao Dictated Date: 05/27/2024 12:02 ET Assigned Physician: Kenna Rao Reviewed and Electronically Signed By: Kenna Rao Signed Date: 05/27/2024 12:23 ET Workstation ID: [id number] Transcribed By: Self Edit Transcribed Date: 05/27/2024 12:02 ET Francesco NAVARRO IMG CT PROCEDURE S documented in this encounter Visit Diagnoses Diagnosis H/O malignant neoplasm of lung Encounter for screening mammogram for breast cancer documented in this encounter Care Teams Incident Response Lead Relationship Specialty Start Date End Date Bibiana Hall MD [address] [place] [address] PCP - General Internal Medicine 04/27/21 documented as of this encounter
--- OUTSIDE RECORDS SUMMARY | 2024-06-10 18:28 | XMS_ITS | Encounter Summary ---
Author Organization [facility] Address [address] [place] [address] Care Team Providers Care Information Assurance Specialist Name Role Phone Bibiana Hall MD Primary Care Provider [phone] Reason for Visit * Imaging (Routine) - Closed Specialty Diagnoses / Procedures Referred By Hong coyne Referred To Contact Diagnoses PAD (peripheral artery disease) ([facility]) Procedures Vascular US duplex lower extremity arteries bilateral with IGNACIO Divya Jackson PA [address] [place] [address] [facility] Referral ID Status Reason Start Date Expiration Date Visits Re quested Visits Authorized [id number] Closed 04/29/2024 04/29/2025 1 1 Encounter Details Date Type Department Care Team (Latest Contact Info) Description 06/05/2024 9:00 AM EST Ancillary Procedure [facility] - [address] [place] [address] PAD (peripheral artery disease) ([facility]) Social History Tobacco Use Types Packs/Day Years [...] on file documented as of this encounter Plan of Treatment Upcoming Encounters Date Type Department Care Team (Late st Contact Info) Description 07/24/2024 8:30 AM EDT Office Visit Adult Medicine [facility] - [address] [phone] Ilene Pittman PA [address] [place], [place] 08/15/2024 8:50 AM EDT Appointment Radiology Department - [address] [phone] 08/19/2024 10:00 AM EDT Office Visit Vascular Surgery - [place] [address] [place] [address] Divya Jackson PA [address] [facility] [address] [place] [address] documented as of this encounter Procedures Procedure Name Priority Date/Time Associated Diagnosis Comments VAS US DUPLEX LOWER EXT ARTERIES BILAT WITH IGNACIO Routine 06/05/2024 9:55 AM EST PAD (peripheral artery disease) ([facility]) documented in this encounter Results * Vascular US duplex lower extremity [...] PSV 42 cm/s CV VAS LAB Left CAD DRAFTSMAN prox sys PSV 137 cm/s CV VAS [...] PSV 89 cm/s CV VAS LAB Right CAD DRAFTSMAN prox sys PSV 218 cm/s CV VAS [...] The mid peroneal artery has biphasic flow. Licensed Direct Entry Midwife Details A cartagena scale, color and doppler analysis ultrasound was performed. During the study longitudinal views were obtained. Pulsed wave doppler was performed. Divya NAVARRO CV VASCULAR PROCEDUR ES documented in this encounter Visit Diagnoses Diagnosis PAD (peripheral artery disease) (CMS/HCC) Unspecified peripheral vascular disease Encounter for screening mammogram for breast cancer documented in this encounter Care Teams Information Assurance Specialist Relationship Specialty Start Date End Date Bibiana Hall MD [address] [place] [id number] PCP - General Internal Medicine 04/27/21 documented as of this encounter
--- OUTSIDE RECORDS SUMMARY | 2024-06-10 18:28 | XMS_ITS | Encounter Summary ---
Author Organization [facility] Address [address] [place] [address] Care Team Providers Care Portable Irrigation Operator Name Role Phone Bibiana Hall MD Primary Care Provider [phone] Reason for Referral * Imaging (Routine) - Pending Review Specialty Diagnoses / Procedures Referred By Hong coyne Referred To Contact Radiology Diagnoses History of lung cancer Pulmonary nodule Procedures CT Chest wo Contrast Charity Melgoza PA [address] [facility], [address] [place] [id number] [facility] Referral ID Status Reason Start Date Expiration Date V isits Requested Visits Authorized [id number] Pending Review 06/01/2024 06/01/2025 1 1 Reason for Visit * Reason Comments Follow-up Chest ct Encounter Details Date Type Department Care Team ([facility] Contact Info) Description 05/30/2024 11:30 AM EST Office Visit Thoracic Surgery - [place] [address] [facility] [address] [place] [phone] Charity Melgoza PA [address] [facility], [address] [place] [address] Pulmonary nodule (Primary Dx); History of lung cancer Social History Tobacco Use Types Packs/Day Years [...] on file documented as of this encounter Last Filed Vital Signs Vital Sign Reading [...] Mass Index 31.9 05/30/2024 11:05 AM EST documented in this encounter Progress Notes * RAMON Huddleston - 05/30/2024 11:30 AM EST Images from the original note were not included. Thoracic Surgery Follow Up Visit Patient name: Leslie Angel : 1950 Date of Visit: May 30, 2024 Care Team PCP: Bibiana Hall MD Reason for Visit Chief Complaint Patient presents with Follow-up Chest ct History of Present Illness Ms. Angel is a 73 y.o. female who had a robotic left lower lobectomy in November 2023 for a stage I (pT1b, pN0) squamous cell carcinoma. The patient presents today after her first surveillance chest CT scan. Patient states that she has been doing well over the past 6 months. She has no residual discomfort at her surgical sites. Denies any increasing shortness of breath, recent cough or cold symptoms, or unintentional weight loss. Denies any new lumps or bumps concerning for lymphadenopathy. She does endorse having some phlegm with bloody streaks that she has coughed up, but also states she has had issues with bloody noses due to the dry air in her house. States that she is getting a humidifier soonto help with this issue. Past Medical History: Diagnosis Date Carotid artery stenosis 10/03/2018 DX:Carotid artery stenosis; COMMENT: Right: 50-69 % Left: >70 % Follows with Dr Whitfield from Vascular COPD (chronic obstructive pulmonary disease) ([facility]) 06/13/2018 DX:COPD (chronic obstructive pulmonary disease) ([facility]) DDD (degenerative disc disease), thoracolumbar 07/09/2018 DX:DDD (degenerative disc disease), thoracolumbar Diverticulosis of colon 07/09/2018 DX:Diverticulosis of colon Former tobacco use 07/20/2018 DX:Former tobacco use; COMMENT: Quit 03/03/2017 Gallstones 06/13/2018 DX:Gallstones History of atrial fibrillation 07/09/2018 DX:History of atrial fibrillation; COMMENT: In setting of hypovolemic shock/Code Blue. Beta blockers. NO anticoagulation Hyperlipidemia 06/13/2018 DX:Hyperlipidemia Hypertension 06/13/2018 DX:Hypertension Lung cancer ([facility]) 12/11/2023 DX:Lung cancer ([facility]); COMMENT: 12/05 squamous cell carcinoma, left lower lobe, lobectomy Mitral valve annular calcification 07/09/2018 DX:Mitral valve annular calcification; COMMENT: Moderate. Mild Aortic valve calcification. ECHO 01/30/17. EF > 70 % Obesity (BMI 30-39.9) 07/20/2018 DX:Obesity (BMI 30-39.9) Old [place] (myocardial infarction) 06/13/2018 DX:Old [place] (myocardial infarction); COMMENT: 2016 significant Troponin leak suggestive of NSTEMI ; participated in Phase II cardiac rehab () Peripheral artery disease ([facility]) 06/13/2018 DX:Peripheral artery disease ([facility]); COMMENT: 2017 Left Iliac Artery stent. Perioperative extravasation Leading to massive blood loss/hypovolemic shock and Code Blue. Massive transfusions. S/p retroperitoneal bleed Proteinuria 06/13/2018 DX:Proteinuria; COMMENT: 08/2017 Tubular adenoma 01/19/2023 DX:Tubular adenoma; COMMENT: 01/04 tubular adenomas, 2 high grade Urinary incontinence 08/11/2023 DX:Urinary incontinence Patient Active Problem List Diagnosis CAD (coronary artery disease) Carotid artery stenosis CKD (chronic kidney disease) stage 3, GFR 30-59 ml/min (CMS/HCC) COPD (chronic obstructive pulmonary disease) (CMS/HCC) DDD (degenerative disc disease), thoracolumbar Diverticulosis of colon Gallstones Hyperlipidemia Hypertension Iliac artery stenosis, bilateral (CMS/HCC) Microalbuminuria Mitral valve annular calcification Obesity (BMI 30-39.9) Peripheral artery disease (CMS/HCC) Pulmonary nodule Subclavian artery stenosis (CMS/HCC) Tubular adenoma Type 2 diabetes mellitus with renal complication (CMS/HCC) Type 2 diabetes mellitus with vascular disease (CMS/HCC) Urinary incontinence History of lung cancer Past Surgical History: Procedure Laterality Date CAROTID ENDARTERECTOMY PROCEDURE: HISTORICAL CAROTID ENDART; COMMENT: 03/2019 OTHER SURGICAL HISTORY 2017 PROCEDURE: HISTORY OTHER; COMMENT: ruptured iliac artery s/p retroperitoneal bleed OTHER SURGICAL HISTORY Left 2017 PROCEDURE: HISTORY OTHER; COMMENT: Iliac artery endovascular stent OTHER SURGICAL HISTORY 08/01/2023 PROCEDURE: X-RAY EXAM OF ARM/LEG ARTERY OTHER SURGICAL HISTORY 08/01/2023 PROCEDURE: AL VASCULAR EMBOLIZATION OR OCCLUSION VENOUS RS&I OTHER SURGICAL HISTORY 08/01/2023 PROCEDURE: AL VASCULAR EMBOLIZATION OR OCCLUSION ARTERIAL RS&I; COMMENT: x2 OTHER SURGICAL HISTORY 08/01/2023 PROCEDURE: ULTRASOUND GUIDANCE FOR VASCULAR AC; COMMENT: x2 OTHER SURGICAL HISTORY 08/01/2023 PROCEDURE: AL REVASC INTRAVASC LITHOTRIPSY; COMMENT: Aorta OTHER SURGICAL HISTORY Left 08/01/2023 PROCEDURE: AL REVASC INTRA LITHOTRIP-STENT; COMMENT: left AYLIN OTHER SURGICAL HISTORY Left 08/01/2023 PROCEDURE: AL REVASC INTRA LITHOTRIP-STENT; COMMENT: left, EIA OTHER SURGICAL HISTORY Left 11/28/2023 PROCEDURE: AL THORACOSCOPY W/LOBECTOMY SINGLE LOBE; COMMENT: LLL lobectomy Allergies Allergen Reactions Lisinopril Current Outpatient Medications on File Prior to Visit Medication Sig Dispense Refill amLODIPine (NORVASC) 10 mg tablet Take 1 tablet (10 mg total) by mouth at bedtime. aspirin (Adult Low Dose Aspirin) 81 mg EC tablet Take 1 tablet (81 mg total) by mouth 1 (one) time each day. carvediloL (COREG) 12.5 mg tablet Take 1 tablet (12.5 mg total) by mouth 2 (two) times a day with meals. cilostazoL (PLETAL) 100 mg tablet TAKE 1 TABLET BY MOUTH EVERY 12 HOURS 200 tablet 1 clopidogreL (PLAVIX) 75 mg tablet TAKE 1 TABLET BY MOUTH DAILY 100 tablet 1 estradioL (ESTRACE) 0.01 % (0.1 mg/gram) vaginal cream Insert 0.5 g into the vagina 1 (one) time each day. place inside the vagina for 2 weeks at night, and then decrease to twice a week at night (Mondays and ) losartan (COZAAR) 100 mg tablet Take 1 tablet (100 mg total) by mouth at bedtime. multivit with minerals/lutein (MULTIVITAMIN 50 PLUS ORAL) Take 1 tablet by mouth. rosuvastatin (CRESTOR) 40 mg tablet TAKE 1 TABLET BY MOUTH AT BEDTIME (Patient taking differently: Take 1 tablet (40 mg total) by mouth at bedtime. at bedtime.) 90 tablet 1 solifenacin (VESICARE) 5 mg tablet Take 1 tablet (5 mg total) by mouth 1 (one) time each day. No current facility-administered medications on file prior to visit. Social History Tobacco Use Smoking status: Former Current packs/day: 0.00 Types: Cigarettes Quit date: 03/03/2017 Years since quittin.2 Smokeless tobacco: Never Substance Use Topics Alcohol use: Yes Drug use: No Social History Social History Narrative Not on file Review of Systems Review of Systems Constitutional: Negative for decreased appetite, fever, night sweats and weight loss. HENT: Positive for nosebleeds (Light, streaky blood when she blows her nose). Negative for congestion and hoarse voice. Cardiovascular: Negative for chest pain and palpitations. Respiratory: Negative for cough, hemoptysis (Couple episodes of bloody streaked sputum, but likely related to her epistaxis.), shortness of breath and sputum production. Hematologic/Lymphatic: Negative for adenopathy. Skin: Negative for rash. Gastrointestinal: Negative for abdominal pain and nausea. Genitourinary: Negative for dysuria. Neurological: Negative for light-headedness. Physical Exam Vitals: 05/30/24 1105 BP: 131/63 BP Location: Right arm Patient Position: Sitting BP Cuff Size: Adult long Pulse: 62 Resp: 16 Temp: 36.9 ??C (98.4 ??F) TempSrc: Temporal SpO2: 97% Weight: 87 kg (191 lb 11.2 oz) Height: 1.651 m (65 ) Physical Exam Vitals reviewed. Constitutional: General: She is not in acute distress. Appearance: She is well-developed. She is not ill-appearing. HENT: Head: Normocephalic and atraumatic. Mouth/Throat: Mouth: Mucous membranes are moist. Eyes: General: Lids are normal. No scleral icterus. Cardiovascular: Rate and Rhythm: Normal rate and regular rhythm. Heart sounds: No murmur heard. Pulmonary: Effort: Pulmonary effort is normal. No accessory muscle usage or respiratory distress. Breath sounds: No wheezing, rhonchi or rales. Comments: CTA B Chest: Comments: Multiple left sided chest incisions are well healed without nodularity. Lymphadenopathy: Cervical: No cervical adenopathy. Upper Body: Right upper body: No supraclavicular adenopathy. Left upper body: No supraclavicular adenopathy. Skin: General: Skin is warm and dry. Neurological: Mental Status: She is alert and oriented to person, place, and time. Psychiatric: Attention and Perception: Attention normal. Mood and Affect: Mood normal. Behavior: Behavior is cooperative. Radiology I personally viewed the patient's current and past imaging studies, in addition to reviewing the dictated report from the reading radiologist. CT Chest wo Contrast Narrative: History: Non-small cell lung carcinoma status post left lower lobectomy 11/28/23. Surveillance. Comparison: 10/30/23 Technique: Helical volumetric imaging of the thorax was performed without IV contrast. DLP: 325.39 mGy/cm [employer] [place] Iterative reconstruction technique Findings: Interim left lower [...] the base the left hemithorax is consistent withthe interim surgical procedure. Mild enlargement of the left heart chambers is unchanged. Coronary artery calcification is again noted and there is extensive mural calcification of the thoracic aorta. Heavy calcification is seen atthe origin of the right subclavian artery and there is heavy calcification centered approximately 2cm distal to the left subclavian artery origin, suspicious for underlying severe stenoses. No significant change is seen. No developing thoracic lymphadenopathy is noted. The partially imaged thyroidgland is without suspicious nodule. A small portion of the upper abdomen included on the lowest images through the thorax is remarkablefor a stable 7 mm circumscribed hypoattenuating lesion in the dome of the liver, most likely a cyst. A 3.8 x 2.7 cm fatty mass arising from the left adrenal gland is unchanged, consistent with a myelolipoma. Diverticulosis of the partially imaged colon is seen. No suspicious osseous destructive lesion is identified. Impression: Impression: 1. Status post interim left lower [...] consistent with bilateral subclavian steal phenomena.) Telerad RAMON ([id number]) -------- FINAL REPORT -------- Dictated By: Kenna Rao Dictated Date: 05/27/2024 12:02 ET Assigned Physician: Kenna Rao Reviewed and Electronically Signed By: Kenna Rao Signed Date: 05/27/2024 12:23 ET Workstation ID: [id number] Transcribed By: Self Edit Transcribed Date: 05/27/2024 12:02 ET Assessment and Plan Problem List Items Addressed This Visit Pulmonary nodule - Primary Relevant Orders CT Chest wo Contrast History of lung cancer Ms. Angel is a 73-year-old female who [...] pulmonary infection that would require antibiotic treatment. Relevant Orders CT Chest wo Contrast RAMON Huddleston [facility] Thoracic Surgery [address] [facility], [address] [facility] [address] * RAMON Huddleston - 05/30/2024 9:25 AM ESTAssociated Problem(s): History of lung cancer Ms. Angel is a 73-year-old female who [...] pulmonary infection that would require antibiotic treatment. documented in this encounter Plan of Treatment Upcoming Encounters Date Type Department Care Team (Late st Contact Info) Description 07/24/2024 8:30 AM EDT Office Visit Adult Medicine [facility] - [address] [phone] Ilene Pittman PA [address] [place] [phone] 08/15/2024 8:50 AM EDT Appointment Radiology Department - [address] [phone] 08/19/2024 10:00 AM EDT Office Visit Vascular Surgery - [place] [address] [place] [address] Divya Jackson PA [address] [facility] [address] [place] [address] Scheduled Orders Name Type Priority Associated Diagnoses Orde r Schedule CT Chest wo Contrast Imaging Routine History of lung cancer Pulmonary nodule Expected: 08/28/2024, Expires: 05/30/2025 documented as of this encounter Visit Diagnoses Diagnosis Pulmonary nodule- Primary Other diseases of lung, not elsewhere classified History of lung cancer Personal history of malignant neoplasm of bronchus and lung Encounter for screening mammogram for breast cancer documented in this encounter Care Teams Portable Irrigation Operator Relationship Specialty Start Date End Date Bibiana Hall MD [address] [place] [address] PCP - General Internal Medicine 04/27/21 documented as of this encounter
--- OUTSIDE RECORDS SUMMARY | 2024-06-10 18:28 | XMS_ITS | Encounter Summary ---
Author Organization [facility] Address [address] [place] [address] Care Team Providers Care Cigarette Tipper Name Role Phone Bibiana Hall MD Primary Care Provider Reason for Visit * Imaging (Routine) - Closed Specialty Diagnoses / Procedures Referred By Hong coyne Referred To Contact Radiology Diagnoses Carotid stenosis, asymptomatic, bilateral History of left-sided carotid endarterectomy Procedures Vascular US duplex carotid bilateral Divya Jackson PA [address] [place] [address] [facility] Ultrasound [address] [place] [address] Referral ID Status Reason Start Date Expiration Date Visits Re quested Visits Authorized [id number] Closed 03/02/2024 03/02/2025 1 1 Encounter Details Date Type Department Care Team (Latest Contact Info) Description 05/17/2024 1:15 PM EST Ancillary Procedure [facility] - [address] [place] [address] Carotid stenosis, asymptomatic, bilateral; History of left-sided carotid endarterectomy Social History Tobacco Use Types Packs/Day Years [...] 8:30 AM EDT Office Visit Adult Medicine [address] [phone] Ilene Pittman PA [address] [place], [place] 08/15/2024 8:50 AM EDT Appointment Radiology Department - [address] [phone] 08/19/2024 10:00 AM EDT Office Visit Vascular Surgery - [place] [address] [place] [address] Divya Jackson, RAMON [address] [place] [address] documented as of this encounter Procedures Procedure Name Priority Date/Time Associated Diagnosis Comments VAS US DUPLEX CAROTID BILATERAL Routine 05/17/2024 1:27 PM EST Carotid stenosis, asymptomatic, bilateral History of left-sided carotid endarterectomy documented in this encounter Results * Vascular US duplex carotid bilateral (05/17/2024 1:27 PM EST) Left CCA dist sys 163 cm/s CV VAS LAB Left CCA dist haines 35 cm/s CV VAS LAB LEFT COMMON CAROTID ARTERY MID S 139 cm/s CV VAS LAB LEFT COMMON CAROTID ARTERY MID D 25 cm/s CV VAS LAB Left CCA prox sys 134 cm/s CV VAS LAB Left CCA prox haines 36 cm/s CV VAS LAB Left ICA dist sys 149 cm/s CV VAS LAB Left ICA dist haines 19 cm/s CV VAS LAB Left ICA mid sys 153 cm/s CV VAS LAB Left ICA mid haines 33 cm/s CV VAS LAB Left ICA prox sys 167 cm/s CV VAS LAB Left ICA prox haines 23 cm/s CV VAS LAB Left ECA sys 279 cm/s CV VAS LAB LEFT EXTERNAL CAROTID ARTERY D 62 cm/s CV VAS LAB Left Prox Subclavian PSV 236 cm/s CV VAS LAB Left vertebral sys 0 cm/s CV VAS LAB Right cca dist sys 122 cm/s CV VAS LAB Right CCA dist haines 22 cm/s CV VAS LAB RIGHT COMMON CAROTID ARTERY MID S 99 cm/s CV VAS LAB RIGHT COMMON CAROTID ARTERY MID D 18 cm/s CV VAS LAB Right CCA prox sys 112 cm/s CV VAS LAB Right CCA prox haines 18 cm/s CV VAS LAB Right ICA dist sys 137 cm/s CV VAS LAB Right ICA dist haines 30 cm/s CV VAS LAB Right ICA mid sys 184 cm/s CV VAS LAB Right ICA mid haines 29 cm/s CV VAS LAB Right ICA prox sys 185 cm/s CV VAS LAB Right ICA prox haines 25 cm/s CV VAS LAB Right eca [...] mild heterogeneous plaque. Vertebral flow is antegrade. Production Technologist Details A cartagena scale, color and doppler analysis ultrasound was performed. During the study longitudinal and transverse views were obtained. Pulsed wave doppler was performed. Overall the study quality was adequate. Divya NAVARRO CV VASCULAR PROCEDUR ES documented in this encounter Visit Diagnoses Diagnosis Carotid stenosis, asymptomatic, bilateral History of left-sided carotid endarterectomy Encounter for screening mammogram for breast cancer documented in this encounter Care Teams Cigarette Tipper Relationship Specialty Start Date End Date Bibiana Hall MD [address] [place] [id number] PCP - General Internal Medicine 04/27/21 documented as of this encounter
--- OUTSIDE RECORDS SUMMARY | 2024-06-10 18:28 | XMS_ITS | Clinical Summary ---
Author Organization [facility] Address [address] [facility] [address] [place] [address] Phone Care Team Providers Care Supervisor [employer] Name Role Phone Bibiana Hall MD Primary Care Provider [phone] Allergies Active Allergy Reactions Criticality Noted Date Comments Lisinopril Cough 06/14/2023 Medications carvedilol (COREG) 12.5 MG tablet Take 12.5 mg by mouth in the morning and 12.5 mg in the evening. Take with meals. 06/05/2023 Active losartan (COZAAR) 100 MG tablet Take 100 mg by mouth 1 (one) time each day 06/05/2023 Active cilostazol (PLETAL) 100 MG tablet Take 100 mg by mouth in the morning and 100 mg in the evening. Active clopidogrel (PLAVIX) 75 MG tablet Take 75 mg by mouth 1 (one) time each day Active rosuvastatin (CRESTOR) 40 MG tablet Take 40 mg by mouth every night Active aspirin (ST MARBELLA) 81 MG EC tablet Take 81 mg by mouth 1 (one) time each day Active Multiple Vitamin (multivitamin) tablet Take 1 tablet by mouth 1 (one) time each day Active solifenacin (VESICARE) 5 MG tablet 10/29/2023 Active amLODIPine (NORVASC) 10 MG tablet Take 1 tablet (10 mg total) by mouth 1 (one) time each day 90 tablet 3 11/23/2023 Active Active Problems Problem Noted Date Diagnosed Date Stage 3b chronic kidney disease 06/14/2023 Diabetes mellitus, not otherwise specified 06/14 Hypertension 06/14/2023 Proteinuria, not otherwise specified 06/14/2023 Diabetic glomerulonephritis 06/14/2023 Arteriosclerotic vascular disease 06/14/2023 Peripheral arterial occlusive disease 06/14/2023 Ex-tobacco user 07/20/2018 Overview (08/09/2023): Quit 03/03/2017 H/O: atrial fibrillation 07/09/2018 Overview (08/09/2023): In setting of hypovolemic shock/Code Blue. Beta blockers. NO anticoagulation Mitral valve annular calcification 07/09/2018 Overview (08/09/2023): Moderate. Mild Aortic valve calcification. ECHO 01/30/17. EF > 70 % Chronic obstructive pulmonary disease 06/13/2018 Encounters Date Type Department Care Team Description 04/17/2024 11:20 AM EST Office Visit [facility] [address] [facility] [address] [place] [address] Chepe West MD Stage 3b chronic kidney disease (HCC) (Primary Dx); Proteinuria, not otherwise specified; Peripheral arterial occlusive disease (HCC); Diabetic glomerulonephritis (HCC); H/O: atrial fibrillation; Hypertension 04/16/2024 Travel from Last 3 Months Family History Relation Status Comments Father Mother Social History Tobacco Use Types Packs/Day Years Used Date Smoking Tobacco: Former Cigarettes 1.5 47.8 1 970 - 03/03/2017 Smokeless Tobacco: Never Tobacco Cessation:Counseling Given: Not Answered Alcohol Use Standard Drinks/Week Comments Yes 0 (1 standard drink = 0.6 oz pur e alcohol) Comments Unknown Sex and Gender Information Value Date Recorded Sex Assigned at Not on file Legal Sex Female 11:09 AM EST Gender Identity Not on file Sexual Orientation Not on file Last Filed Vital Signs Vital Sign Reading Time Taken Comments Blood Pressure 124/79 04/17/2024 11:44 AM EST Pulse 72 04/17/2024 11:44 AM EST Temperature - - Respiratory Rate - - Oxygen Saturation 97% 04/17/2024 11:44 AM EST Inhaled Oxygen Concentration - - Weight 85.3 kg (188 lb) 04/17/2024 11:44 AM EST Height 166.4 cm (5' 5.5 ) 04/17/2024 11:44 AM ES T Body Mass Index 30.81 04/17/2024 11:44 AM EST Plan of Treatment Upcoming Encounters Date Type Department Care Team (Late st Contact Info) Description 10/17/2024 9:00 AM EDT Office Visit [facility] [address] [phone] Chepe West MD [address] [address] Health Maintenance Due Date Last Done Comments Breast Cancer Screening 1950 Colorectal Cancer Screening: Annual FOBT 1998 Colorectal Cancer Screening: Colonoscopy 1998 Colorectal Cancer Screening: Sigmoidoscopy 1998 Diabetes: Ophthalmology Exam 06/14/2023 Diabetes: Pedal Pulse Checked 06/14/2023 Diabetes: Sensory Foot Exam 06/14/2023 Diabetes: Visual Foot Exam 06/14/2023 Diabetes: Hemoglobin A1C 04/24/2024 024, 09/04/2023, 05/19/2023, Additional history exists Pneumococcal Vaccine: 65+ Years Completed 11/11/2021, 02/04/2019 Influenza Vaccine Completed 01/24/2024, , 01/24/2024, Additional history exists Hepatitis B Vaccine Aged Out No longe r eligible based on patient's age to complete this topic Procedures Procedure Name Priority Date/Time Associated Diagnosis Comments EXT RESULT ENTRY Routine 10/20/2022 from Last 3 Months or Most Recently Relevant to Health Maintenance Results * (ABNORMAL) EXT RESULT ENTRY (10/20/2022) Sodium 141 137 - 147 Potassium 4.1 3.4 - 5.5 Chloride 107.0 99.0 - 108.0 Carbon Dioxide 29 mmol/L Anion Gap 5 <=30 MMOL/L Glucose 131 60 - 200 BUN 18 4 - 21 mg/dL Creatinine 1.12(A) 0.50 - 1.10 mg/dL Calcium 10.2 8.7 - 10.7 mg/dL eGFR Non-Afr Yemeni 52 Hemoglobin A1C 5.8 4.0 - 6.0 10/20/2022 us Historical Provider LAB BLOOD ORDERABLES Diana l Result from Last 3 Months or Most Recently Relevant to Health Maintenance Insurance [address] [place] [address] [place] [address] MEDICARE Care Teams Supervisor [employer] Relationship Specialty Start Date End Date Bibiana Hall MD [address] [place] [address] PCP - General Internal Medicine 12/4/24
--- OUTSIDE RECORDS SUMMARY | 2024-06-10 18:28 | XMS_ITS | Encounter Summary ---
Author Organization [facility] Address [address] [place] [address] Phone Care Team Providers Care Retirement Village Manager Name Role Phone Bibiana Hall MD Primary Care Provider [phone] Reason for Visit * Reason Onset Date Comments Med Refill 10/22/2023 Encounter Details Date Type Department Care Team (Late Contact Info) Description 10/22/2023 Refill [facility] [address] [place] [phone] Chepe West MD [address] [facility] [address] [place] [address] Social History Tobacco Use Types Packs/Day Years Used Date Smoking Tobacco: Former Cigarettes 1.5 47.8 1 970 - 03/03/2017 Smokeless Tobacco: Never Alcohol Use Standard Drinks/Week Comments Yes 0 (1 standard drink = 0.6 oz pur e alcohol) Comments Unknown Sex and Gender Information Value Date Recorded Sex Assigned at Not on file Legal Sex Female 11:09 AM EST Gender Identity Not on file Sexual Orientation Not on file documented as of this encounter Plan of Treatment Upcoming Encounters Date Type Department Care Team (Late Contact Info) Description 10/17/2024 9:00 AM EDT Office Visit [facility] [address] [facility] [address] [place] [address] Chepe West MD [address] [facility] [address] [place] [address] documented as of this encounter Visit Diagnoses Not on filedocumented in this encounter Care Teams Retirement Village Manager Relationship Specialty Start Date End Date Bibiana Hall MD [address] [place] [address] PCP - General Internal Medicine 04/17/24 documented as of this encounter
== END 2024-06-10 14:32 | disposition home or self-care (01) ==
PROVIDERS: Visit Provider Internal Medicine
DX: I25.10 Atherosclerotic heart disease of native coronary artery without angina pectoris (principal); I73.9 Peripheral vascular disease, unspecified; I10 Essential (primary) hypertension
CPT/HCPCS: 93010; 99214

== ENCOUNTER → 2024-06-10 13:46 | Outpatient (BNVA) | payer MEDICARE, SELFPAY | PROVIDERS: Visit Provider Internal Medicine | DX: I25.10 Atherosclerotic heart disease of native coronary artery without angina pectoris (principal); I73.9 Peripheral vascular disease, unspecified; I10 Essential (primary) hypertension; R94.31 Abnormal electrocardiogram [ECG] [EKG] | CPT/HCPCS: 93005; 99212 ==

== ENCOUNTER 2024-06-24 09:01 | Outpatient (AMB) | payer MEDICARE, SELFPAY ==
--- NOTE | 2024-06-23 12:28 | MHC.OFFVIS ---
Vital Signs 06/24/24 09:07 Height 5 ft 5 in Weight 194 lb 0.108 oz BMI 32.3 BP 122/68 Blood Pressure Location Rt brachial Position Sitting Pulse 58 Pulse Source Pulse Oximeter Pulse Oximetry (%) 95 Oxygen Delivery Method Room Air Intake Visit Reasons: RAMIREZ Quality Assurance Inspector Required: No Hoop Rolls Operator: Hoop Rolls Operator offered & declined Accompanied by: Self / Same As Patient Allergies lisinopril Adverse Reaction (Unknown, Verified 06/24/24 09:12) Cough Medication List - Last Reconciled 06/24/24 by Elizabeth Sanchez LPN amlodipine 10 mg PO DAILY aspirin 81 mg PO DAILY carvedilol 12.5 mg PO BID cilostazol 100 mg PO BID clopidogrel 75 mg PO DAILY losartan 100 mg PO DAILY rosuvastatin 40 mg PO DAILY solifenacin (Vesicare) 5 mg PO DAILY HPI HPI RAMIREZ: Details: Leslie is pleasant 73 year old female, former smoker, quit 2016 with approximately 70 pack year history with underlying COPD, HTN, HLD, PAD and [place] 2017. She is enrolled in the lung cancer screening program through [facility] and annual screen from 07/2023 revealed new 7 x 9 mm LLL nodule. Repeat chest CT 10/2023 revealed increasing nodule measuring 13 x [address] Mcleod performed EBUS on 11/28/23 which revealed stage 1A squamous cell carcinoma with subsequent left lower lobe wedge resection. She was supposed to be scheduled for chest CT in 6 months, however was unsure if her insurance was going to be contracted with [facility], therefore a chest CT was ordered through [facility]. Since the last visit, she notes chest CT was performed at [facility] in May with subsequent follow up with Dr. Mcleod. Per patient she will have another chest CT in 3 months. Reports not available today. At this time, she feels respiratory symptoms have been well controlled, occasionally having dyspnea on exertion and intermittent dry cough with wheezing. She is not interested in a daily inhaler at this time or PFT. [facility] Medical History (Updated 01/22/24 @ 09:10 by Elizabeth Duran MD) Essential hypertension Peripheral vascular disease Atherosclerotic cardiovascular disease Surgical History S/P lobectomy of lung (~11/13/23) History of carotid endarterectomy (~03/2019) Family History Father No problems noted. Mother No problems noted. Social History Household Members: None Alcohol intake: current Alcohol intake frequency: holidays/special occasions only Patient Tobacco Use Status: Former Tobacco user Years Smoked: 50 +/- service: No Current occupational status: retired Review of Systems Const Denies chills, Denies excessive sweating, Denies fever(s), Denies headache(s) and Denies night sweats Eyes Denies dry eyes, Denies irritation and Denies itchy eyes ENT Reports Normal hearing present, Denies headache(s), Denies nasal congestion, Denies nasal discharge, Denies post nasal drip and Denies sore throat Card Denies chest pain, Denies chest pain at rest, Denies chest pain with activity, Denies claudication, Denies leg edema, Denies dyspnea, Reports dyspnea on exertion, Denies orthopnea and Denies paroxysmal nocturnal dyspnea Resp Denies chest congestion, Denies cough, Denies excessive phlegm production, Denies pain on inspiration, Denies pain with cough, Denies dyspnea, Reports dyspnea on exertion, Denies stridor and Denies wheezing Musc Denies myalgias Neuro Reports Normal hearing present and Denies headache(s) Endo Denies excessive sweating Edward/Lymph Denies lymphadenopathy Aller/Immun Denies itchy eyes, Denies seasonal rhinorrhea and Denies wheezing Physical Exam Vital Signs: Last Vital Signs Pulse 58 06/24/24 09:07 BP 122/68 06/24/24 09:07 Pulse Ox 95 06/24/24 09:07 Oxygen Delivery Method Room Air 06/24/24 09:07 BMI result Body Mass Index 32.3 Const General: cooperative, healthy appearing, comfortable, no acute distress, well developed and alert Nutritional Appearance: obese Orientation/consciousness: patient oriented x3 Limitations: no limitations HEENT Head: Yes normal to inspection, Yes normocephalic and Yes atraumatic Ears: hearing grossly normal bilaterally and external ears normal Eyes General: appearance normal, both eyes and all related structures Eyelids: Yes eyelids normal Sclerae: sclerae normal EOM: EOMs intact bilaterally Neck Neck: Yes normal visual inspection and Yes no lymphadenopathy Lymphatic: no lymphadenopathy noted Chest Chest palpation & inspection: normal inspection of the chest Resp Effort & Inspection: normal respiratory effort, able to speak in complete sentences, no audible wheezes, no cough, no stridor, not tachypneic, no tripod positioning and no use of accessory muscles Auscultation: clear to auscultation bilaterally Cardio Jugular venous distension: no JVD Rate: regular rate Rhythm: regular rhythm Skin Other: warm, dry General skin exam: no rashes or lesions noted Neuro General: patient oriented x3 Cranial nerves: Yes Normal hearing present Cognition (Neuro): normal cognition Gait exam (Neuro): Normal gait present Extrem General: Yes normal to inspection, Yes capillary refill normal, Yes no clubbing, cyanosis or edema and Yes no pedal edema Psych Appearance: grossly normal and well kempt Speech and movement: Normal speech and movement present and Clear speech present Affect: normal affect Attitude: cooperative Thought process: Normal thought process present Thought content: Normal thought content present Insight: Good insight present (Psych) Judgement: Good judgement present (Psych) Assessment & Plan Assessment & Plan (1) COPD (chronic obstructive pulmonary disease): Code(s): J44.9 - Chronic obstructive pulmonary disease, unspecified Category: Medical (2) Personal history of tobacco use: Code(s): Z87.891 - Personal history of nicotine dependence Category: Social Hx (3) Lung cancer: Code(s): C34.90 - Malignant neoplasm of unspecified part of unspecified bronchus or lung Category: Medical (4) S/P partial lobectomy of lung: Comment: LLL wedge resection 11/2023 Code(s): Z90.2 - Acquired absence of lung [part of] Category: Surgical Plan Leslie is s/p LLL wedge resection 11/2023 for diagnosis of stage 1A squamous cell carcinoma. She reports recent chest CT performed at [facility] in May which likely revealed some abnormalities given 3 month follow up vs planned 6 month. Will attempt to obtain as well as office visit from Dr. cMleod. At this time she reports occasional dyspnea on exertion, otherwise respiratory symptoms are controlled. We discussed initiating a daily inhaler and scheduling PFT, however she declined at this time. She is aware to call if symptoms become more persistent. All questions were answered and patient is in agreement of plan. Will follow up PRN. Coding Level of Care Code Est Pt Level 4 (50484) Diagnoses COPD (chronic obstructive pulmonary disease) J44.9 Personal history of tobacco use Z87.891 Lung cancer C34.90 S/P partial lobectomy of lung Z90.2
[2024-06-24 09:07] VITALS: BP 122/68; PULSE 58; O2SAT 95; BMI 32.3
== END 2024-06-24 11:38 | disposition home or self-care (01) ==
PROVIDERS: PCP Internal Medicine; Visit Provider Nurse Practitioner Family
DX: J44.9 Chronic obstructive pulmonary disease, unspecified (principal); Z87.891 Personal history of nicotine dependence; C34.90 Malignant neoplasm of unspecified part of unspecified bronchus or lung; Z90.2 Acquired absence of lung [part of]
CPT/HCPCS: 99214

== ENCOUNTER → 2024-06-24 09:01 | Outpatient (BNVA) | payer MEDICARE, SELFPAY | PROVIDERS: PCP Internal Medicine; Visit Provider Nurse Practitioner Family | DX: J44.9 Chronic obstructive pulmonary disease, unspecified (principal); C34.90 Malignant neoplasm of unspecified part of unspecified bronchus or lung; Z90.2 Acquired absence of lung [part of]; Z87.891 Personal history of nicotine dependence | CPT/HCPCS: 99212 ==

== ENCOUNTER 2024-09-30 10:21 | Outpatient (AMB) | payer MEDICARE, SELFPAY ==
--- NOTE | 2024-09-30 10:25 | A.OFFVIS_ITS ---
Vital Signs 09/30/24 10:30 Height 5 ft 5 in Weight 188 lb 7.924 oz BMI 31.4 BP 118/82 Blood Pressure Location Rt brachial Position Sitting Pulse 52 Pulse Source Pulse Oximeter Pulse Oximetry (%) 96 Oxygen Delivery Method Room Air Intake Visit Reasons: RAMIREZ /CT FU Allergies lisinopril Adverse Reaction (Unknown, Verified 09/30/24 10:32) Cough HPI HPI RAMIREZ /CT FU: Details: Leslie is pleasant 73 year old female, former smoker, quit 2017 with approximately 70 pack year history with underlying COPD, HTN, HLD, PAD and [place] 2017. She is enrolled in the lung cancer screening program through [facility] and annual screen from 07/2023 revealed new 7 x 9 mm LLL nodule. Repeat chest CT 10/2023 revealed increasing nodule measuring 13 x [address] Mcleod performed EBUS on 11/28/23 which revealed stage 1A squamous cell carcinoma with subsequent left lower lobe wedge resection. CT from 05/2024 revealed multiple new pulmonary nodules thought to be infectious/inflammatory in nature and recently underwent chest CT 08/2024 which revealed resolving nodules. Report not scanned in chart, viewed on patient portal. There was also note of enlarged pulmonary arteries, with upcoming echo scheduled through [facility] cardiology. She continues to report minimal respiratory symptoms occasionally with dyspnea on exertion and intermittent dry cough with wheezing. She is not interested in a daily inhaler at this time or PFT. [facility] Medical History (Updated 01/22/24 @ 09:10 by Elizabeth Duran MD) Essential hypertension Peripheral vascular disease Atherosclerotic cardiovascular disease Surgical History S/P lobectomy of lung (~11/13/23) History of carotid endarterectomy (~03/2019) Family History Father No problems noted. Mother No problems noted. Social History Household Members: None Alcohol intake: current Alcohol intake frequency: holidays/special occasions only Patient Tobacco Use Status: Former Tobacco user Years Smoked: 49 +/- service: No Current occupational status: retired Review of Systems Const Denies chills, Denies excessive sweating, Denies fever(s), Denies headache(s) and Denies night sweats Eyes Denies dry eyes, Denies irritation and Denies itchy eyes ENT Reports Normal hearing present, Denies headache(s), Denies nasal congestion, Denies nasal discharge, Denies post nasal drip and Denies sore throat Card Denies chest pain, Denies chest pain at rest, Denies chest pain with activity, Denies claudication, Denies leg edema, Denies dyspnea, Reports dyspnea on exertion, Denies orthopnea and Denies paroxysmal nocturnal dyspnea Resp Denies chest congestion, Denies excessive phlegm production, Denies pain on inspiration, Denies pain with cough, Denies dyspnea, Reports dyspnea on exertion and Denies stridor Musc Denies myalgias Neuro Reports Normal hearing present and Denies headache(s) Endo Denies excessive sweating Edward/Lymph Denies lymphadenopathy Aller/Immun Denies itchy eyes and Denies seasonal rhinorrhea Physical Exam Vital Signs: Last Vital Signs Pulse 52 09/30/24 10:30 BP 118/82 09/30/24 10:30 Pulse Ox 96 09/30/24 10:30 Oxygen Delivery Method Room Air 09/30/24 10:30 BMI result Body Mass Index 31.4 Const General: cooperative, healthy appearing, comfortable, no acute distress, well developed and alert Nutritional Appearance: obese Orientation/consciousness: patient oriented x3 Limitations: no limitations HEENT Head: Yes normal to inspection, Yes normocephalic and Yes atraumatic Ears: hearing grossly normal bilaterally and external ears normal Eyes General: appearance normal, both eyes and all related structures Eyelids: Yes eyelids normal Sclerae: sclerae normal EOM: EOMs intact bilaterally Neck Neck: Yes normal visual inspection and Yes no lymphadenopathy Lymphatic: no lymphadenopathy noted Chest Chest palpation & inspection: normal inspection of the chest Resp Effort & Inspection: normal respiratory effort, able to speak in complete sentences, no audible wheezes, no cough, no stridor, not tachypneic, no tripod positioning and no use of accessory muscles Auscultation: clear to auscultation bilaterally Cardio Jugular venous distension: no JVD Rate: regular rate Rhythm: regular rhythm Skin Other: warm, dry General skin exam: no rashes or lesions noted Neuro General: patient oriented x3 Cranial nerves: Yes Normal hearing present Cognition (Neuro): normal cognition Gait exam (Neuro): Normal gait present Extrem General: Yes normal to inspection, Yes capillary refill normal, Yes no clubbing, cyanosis or edema and Yes no pedal edema Psych Appearance: grossly normal and well kempt Speech and movement: Normal speech and movement present and Clear speech present Affect: normal affect Attitude: cooperative Thought process: Normal thought process present Thought content: Normal thought content present Insight: Good insight present (Psych) Judgement: Good judgement present (Psych) Assessment & Plan Assessment & Plan (1) COPD (chronic obstructive pulmonary disease): Code(s): J44.9 - Chronic obstructive pulmonary disease, unspecified Category: Medical (2) Personal history of tobacco use: Code(s): Z87.891 - Personal history of nicotine dependence Category: Social Hx (3) Lung cancer: Code(s): C34.90 - Malignant neoplasm of unspecified part of unspecified bronchus or lung Category: Medical (4) S/P partial lobectomy of lung: Comment: LLL wedge resection 11/2023 Code(s): Z90.2 - Acquired absence of lung [part of] Category: Surgical Plan Leslie is s/p LLL wedge resection 11/2023 for diagnosis of stage 1A squamous cell carcinoma. Most recent chest CT 08/2024 revealed resolving pulmonary nodules of DONNA, that were new on 05/2024 CT. She will have follow up imaging scheduled at [facility] through [facility]. Will reach out to obtain records, including CT images from [facility]. At this time she reports occasional dyspnea on exertion, otherwise respiratory symptoms are controlled. We discussed initiating a daily inhaler and scheduling PFT, however she continues to decline. She is aware to call if symptoms become more persistent. All questions were answered and patient is in agreement of plan. Will follow up PRN. Coding Level of Care Code Est Pt Level 4 (80375) Diagnoses COPD (chronic obstructive pulmonary disease) J44.9 Personal history of tobacco use Z87.891 Lung cancer C34.90 S/P partial lobectomy of lung Z90.2
[2024-09-30 10:30] VITALS: BP 118/82; PULSE 52; O2SAT 96; BMI 31.4
--- OUTSIDE RECORDS SUMMARY | 2024-09-30 10:56 | XMS_ITS | Clinical Summary ---
Author Organization [facility] Address [address] [facility] [address] [place] [address] Phone Care Team Providers Care Dog Breeder Name Role Phone Bibiana Hall MD Primary Care Provider [phone] Allergies Active Allergy Reactions Criticality Noted Date [...] 70 % Chronic obstructive pulmonary disease 06/13/2018 Family History Relation Status Comments Father Mother [...] Upcoming Encounters Date Type Department Care Team (Latest Contact Info) Description 10/16/2024 Orders Only [facility] [address] [phone] Chepe West MD [address] [address] Stage 3b chronic kidney disease (HCC); Proteinuria, not otherwise specified; Peripheral arterial occlusive disease (HCC); Diabetic glomerulonephritis (HCC); H/O: atrial fibrillation; Hypertension 10/17/2024 9:00 AM EDT Office Visit [facility] [address] [address] Chepe West MD [address] [address] Health Maintenance Due Date Last Done Comments Breast Cancer Screening 1950 Colorectal Cancer Screening: Annual FOBT 1998 Colorectal Cancer Screening: Colonoscopy 1998 Colorectal Cancer Screening: Sigmoidoscopy 1998 Diabetes: Ophthalmology Exam 06/14/2023 Diabetes: Pedal Pulse Checked 06/14/2023 Diabetes: Sensory Foot Exam 06/14/2023 Diabetes: Visual Foot Exam 06/14/2023 Diabetes: Hemoglobin A1C 2024 025, 01/24/2024, 09/04/2023, Additional history exists Pneumococcal Vaccine: 50+ Years Completed 11/11/2021, 02/04/2019 Influenza Vaccine Completed [...] 10.2 8.7 - 10.7 mg/dL eGFR Non-Afr Paraguayan 52 Hemoglobin A1C 5.8 4.0 - 6.0 10/20/2022 us Historical Provider LAB BLOOD ORDERABLES Diana l Result from Last 3 Months or Most Recently Relevant to Health Maintenance Insurance [address] [place] [address] Medicare Medicare Care Teams Dog Breeder Relationship Specialty Start Date End Date Bibiana Hall MD [address] [place] [id number] PCP - General Internal Medicine 04/17/24
--- OUTSIDE RECORDS SUMMARY | 2024-09-30 10:56 | XMS_ITS | Encounter Summary ---
Author Organization [facility] Address [address] [place] [address] Phone Care Team Providers Care Hamper Maker Name Role Phone Bibiana Hall MD Primary Care Provider [phone] Reason for Visit * Reason Onset Date Comments Med Refill 10/22/2023 Encounter Details Date Type Department Care Team (Late st Contact Info) Description 10/22/2023 Refill [facility] [address] [place] [id number] Chepe West MD [address] [facility] [address] [place] [address] Social History Tobacco Use Types [...] Only [facility] [address] [facility] [address] [place] [address] Chepe West MD [address] [facility] [address] [place] [address] Stage 3b chronic kidney disease (HCC); Proteinuria, not otherwise specified; Peripheral arterial occlusive disease (HCC); Diabetic glomerulonephritis (HCC); H/O: atrial fibrillation; Hypertension 10/17/2024 9:00 AM EDT Office Visit [facility] [address] [address] Chepe West MD [facility] [address] [id number] documented as of this encounter Visit Diagnoses Not on filedocumented in this encounter Care Teams Hamper Maker Relationship Specialty Start Date End Date Bibiana Hall MD [address] [place] [address] PCP - General Internal Medicine 04/17/24 documented as of this encounter
--- OUTSIDE RECORDS SUMMARY | 2024-09-30 10:56 | XMS_ITS | Clinical Summary ---
Author Organization [address] [facility] Address [address] [place] [address] Phone Care Team Providers Care Guest Services Coordinator Name Role Phone Bibiana Hall MD Primary Care Provider [phone] Allergies Active Allergy Reactions Criticality Noted Date Comments Lisinopril 06/13/2018 Medications rosuvastatin (CRESTOR) 40 mg tablet TAKE 1 TABLET BY MOUTH AT BEDTIME 90 tablet 1 03/20/2024 Active aspirin (Adult Low Dose Aspirin) 81 mg [...] week at night (Mondays and ) 10/23/2023 11/17/19 25 Active cilostazoL (PLETAL) 100 mg tablet TAKE 1 TABLET BY MOUTH EVERY 12 HOURS 200 tablet 1 05/07/2024 Active clopidogreL (PLAVIX) 75 mg tablet TAKE 1 TABLET BY MOUTH DAILY 100 tablet 1 05/07/2024 Active losartan (COZAAR) 100 mg tablet TAKE 1 TABLET BY MOUTH AT BEDTIME 90 tablet 1 06/19/2024 Active solifenacin (VESICARE) 5 mg tablet TAKE 1 TABLET BY MOUTH DAILY 100 tablet 2 07/29/2024 Active Active Problems Problem Noted Date Diagnosed Date History of lung cancer 05/30/2024 Overview (07/31/2024): 11/2023: Stage 1 SCC s/p LLL lobectomy Assessment & Plan (09/09/2024 11:00 AM EDT): Ms. Angel is a 73 y.o. female e who had a robotic left lower lobectomy in November 2023 for a stage I (pT1b, pN0) squamous cell carcinoma. She had her first surveillance CT scan in May 2024 which showed multiple new pulmonary nodules in the left upper lobe which appear more likely infectious or inflammatory in nature, at which point the decision was made to repeat the CT chest in 3 months. Results of the [address] chest showing improvement in opacities/nodules in the anterior left upper lobe suggesting improving infectious/inflammatory disease. She will just continue with 6-month chest CT surveillance scans for the first 2 years following her surgical date. After completion of [address] surveillance her chest CT intervals will be increased to 12-month intervals or 3 years thereafter for a total surveillance of 5 years. Her next chest CT surveillance scan will be due in February 2025 and have a visit at the thoracic surgery department thereafter to discuss results. Assessment & Plan (06/01/2024 11:31 AM EST): [...] in the coming weeks. She does have [place] [employer] and will contact her insurance about a continuation of care letter once we give her the CPT's. Urinary incontinence 08/11/2023 Tubular adenoma 01/19/2023 Overview (04/03/2024): 01/04 tubular adenomas, 2 high grade CKD (chronic kidney disease) stage 3, GFR 30-59 ml/min ([facility]/HCC V24, CMS/HCC V28) 11/11/2021 Type 2 diabetes mellitus wit h renal complication ([facility]/HCC V24, CMS/HCC V28) 11/11/2021 Type 2 diabetes mellitus wit h vascular disease (CMS/HCC V24, CMS/HCC V28) 11/11/2021 Iliac artery stenosis, bilateral (CMS/HCC V24) 0 01/08/2020 Overview (04/03/2024): Noted on arterial duplex; 01/01 Following with vascular Subclavian artery stenosis (CMS/HCC V24) 020 Overview (04/03/2024): Pending cta of neck, following [...] CAD (coronary artery disease) 06/13/2018 Overview (04/03/2024): 2016 significant Troponin leak suggestive of NSTEMI ; participated in Phase II cardiac rehab () Had negative nuclear stress test with [place] [facility] January 2021 COPD (chronic obstructive pu lmonary disease) ([facility] V24, [facility] V28) 06/13/2018 Gallstones 06/13/2018 Hyperlipidemia 06/13/2018 Hypertension 06/13/2018 Microalbuminuria 06/13/2018 Peripheral artery disease ([facility] V24) 06/13/19 19 Overview (04/03/2024): 2017 Left Iliac Artery stent. Perioperative extravasation Leading to massive blood loss/hypovolemic shock and Code Blue. Massive transfusions. S/p retroperitoneal bleed Resolved Problems Problem Noted Date Diagnosed Date Resolved Date Lung cancer ([facility] V24, [facility] V28) 12/11/2023 05/30/2024 Overview (04/03/2024): 12/05 squamous cell [...] she also requested to be referred to [facility] with Dr. Pat. She was informed that [...] Encounters Date Type Department Care Team Description 09/09/2024 10:30 AM EDT Office Visit Thoracic Surgery - [place] [address] [place] [id number] Peyton Felix NP History of lung cancer (Primary Dx) 08/28/2024 4:47 PM EDT - 08/28/2024 11:59 PM EDT Hospital Encounter [facility] CT Scan [address] [place] [id number] History of lung cancer; Pulmonary nodule Discharge Disposition: Home or Self Care 08/28/2024 2:00 PM EDT Office Visit Vascular Surgery [facility] [address] [place] [phone] Rosario Tompkins PA Carotid stenosis, asymptomatic, bilateral (Primary Dx); PAD (peripheral artery disease) ([facility] V24); History of left-sided carotid endarterectomy; Subclavian artery stenosis ([facility]/HCC V24) 07/31/2024 10:45 AM EDT Office Visit Adult [address] [address] Ilene Pittman PA Encounter for annual wellness visit (AWV) in Medicare patient (Primary Dx); Mixed hyperlipidemia; Primary hypertension; Microalbuminuria; Type 2 diabetes mellitus with diabetic microalbuminuria, without long-term current use of insulin (CMS/HCC V24, CMS/HCC V28); Coronary artery disease due to lipid rich plaque; Bilateral carotid artery stenosis; Stage 3b chronic kidney disease ([facility] V24, [facility] V28); Chronic obstructive pulmonary disease, unspecified COPD type ([facility] V24, [facility] V28); Iliac artery stenosis, bilateral ([facility] V24); History of lung cancer; Type 2 diabetes mellitus with vascular disease ([facility] V24, [facility] V28); Subclavian artery stenosis ([facility] [place]24); Obesity (BMI 30-39.9); Peripheral artery disease ([facility] V24) from Last 3 Months Immunizations Name Administration Dates Next Due Influenza Quadravalent, 0.5m l (Fluzone High-dose) 65yo and older 02/15/2022 Influenza Quadravalent, MDCK , 0.5ml, preservative free (Flucelvax) 6mo and older 07/20/2018 Influenza trivalent, 0.5mL ( Fluad) 65yo and older 01/19/2023,02/15/2022,04/28/2021,04/18,02/04/2019,02/06/2017,03/07/2016 Influenza trivalent, 0.5mL ( Fluzone High-dose) 65yo and older 01/19/2023,04/28/2021,04/18/2020,02/04,02/06/2017,03/07/2016 Influenza trivalent, 0.5mL, preservative free (Fluarix; FluLaval; Fluzone) ages 6mo and older (Afluria) 3 years and older 01/24/2024 Pneumococcal conjugate 13 va lent (Prevnar 13, PCV13) 2mo and older 11/11/2021 Pneumococcal polysaccharide 23 valent (Pneumovax 23) 2yo and older 02/04/2019 RSV, bivalent, protein subun it RSVpreF, 0.5mL, Preservative Free (Arexvy) 60yo and older 04/20/2023 Respiratory syncytial virus (RSV), unspecified 04/20/2023 Td [...] ARM/LEG ARTERY OTHER SURGICAL HISTORY 08/01/2023 PROCEDURE: OH VASCULAR EMBOLIZATION OR OCCLUSION VENOUS RS&I OTHER SURGICAL HISTORY 08/01/2023 PROCEDURE: OH VASCULAR EMBOLIZATION OR OCCLUSION ARTERIAL RS&I; COMMENT: x2 OTHER SURGICAL HISTORY 08/01/2023 PROCEDURE: ULTRASOUND GUIDANCE FOR VASCULAR AC; COMMENT: x2 OTHER SURGICAL HISTORY 08/01/2023 PROCEDURE: OH REVASC INTRAVASC LITHOTRIPSY; COMMENT: Aorta OTHER SURGICAL HISTORY 08/01/2023 Left PROCEDURE: OH REVASC INTRA LITHOTRIP-STENT; COMMENT: left AYLIN OTHER SURGICAL HISTORY 08/01/2023 Left PROCEDURE: OH REVASC INTRA LITHOTRIP-STENT; COMMENT: left, EIA OTHER SURGICAL HISTORY 11/28/2023 Left PROCEDURE: OH THORACOSCOPY W/LOBECTOMY SINGLE LOBE; COMMENT: LLL lobectomy Medical History Medical History Date Comments Hypertension 06/13/2018 DX:Hypertension Hyperlipidemia 06/13/2018 DX:Hyperlipidemi a COPD (chronic obstructive pu lmonary disease) (CMS/HCC V24, CMS/HCC V28) 06/13/2018 DX:COPD (chronic o bstructive pulmonary disease) ([facility]) Gallstones 06/13/2018 DX:Gallstones Proteinuria 06/13/2018 DX:Proteinuria; [...] ECHO 01/30/17. EF > 70 % Old UT (myocardial infarction) 06/13/2018 D X:Old UT (myocardial infarction); COMMENT: 2016 significant Troponin leak suggestive of NSTEMI ; participated in Phase II cardiac rehab () Peripheral artery disease ([facility]/HCC V24) 06/13/2018 DX:Peripheral artery disease (HCC); COMMENT: 2016 Left Iliac Artery stent. Perioperative extravasation Leading [...] Urinary incontinence 08/11/2023 DX:Urinary incontinence Lung cancer (CMS/HCC V24, [facility] S/HCC V28) 12/11/2023 DX:Lung cancer (HCC); COMMEN T: 12/05 squamous cell carcinoma, left lower lobe, [...] drink = 0.6 oz pur e alcohol) Housing Instability Answer Date Recorde d Are you worried that in the next 2 months you may not have stable housing? No 07/26/2024 Food Access & Nutrition Answer Date Rec orded Do you have access to a vari ety of food including fruits and vegetables? Yes 07/26/2024 Access to Healthcare Answer Date Record ed Within the last 3 months, ho w many times did you visit the emergency department for your medical care? 0 07/26/2024 Health Literacy Answer Date Recorded How often do you need to hav e someone help you when you read instructions, pamphlets, or other written material from your doctor or pharmacy? Never 07/26/2024 Caregiver: How often do you need to have someone help you when you read instructions, pamphlets, or other written material from your doctor or pharmacy? Not on file 07/26/2024 Financial Risk Answer Date Recorded How hard is it for you to pa y for the very basics like food, housing, medical care, and air conditioning / heating? Not very hard 07/26/2024 Transportation Answer Date Recorded Has the lack of transportati on kept you from meetings, work, or from getting things needed for daily living? No Has the lack of transportati on kept you from medical appointments or from getting medications? No 07/26/2024 Social Isolation Answer Date Recorded How often do you feel lonely or isolated from th ose around you? Rarely 07/26/2024 Food Risk Answer Date Recorded Within the past 12 months we worried whether our food would run out before we got money to buy more. Never true 07/26/2024 Within the past 12 months th e food we bought just didn't last and we didn't have money to get more. Never true 07/26/2024 Dependent Care Answer Date Recorded Do you need help finding or paying for care for your loved ones. For example, child support specialist or elderly care for an older adult? No 07/26/2024 Education Answer Date Recorded Do you think completing more education or training, like finishing a GED, going to college, or learning a trade, would be helpful for you? N/A 07/26/2024 Employment and Income Answer Date Recor ded During the last four weeks, have you been actively looking for work? No 07/26/2024 Living Situation Answer Date Recorded What is your living situation? 0 07/26/2024 Comments Unknown Sex and Gender Information Value Date Recorded Sex Assigned at Female 08/23/2024 12:05 PM EDT Legal Sex Female 5:51 AM EST Gender Identity Female 08/23/2024 12:05 PM EDT Sexual Orientation Straight 08/23/2024 12 :05 PM EDT Obstetrics History Last Filed Vital Signs Vital Sign Reading Time Taken Comments Blood Pressure 106/60 09/09/2024 10:26 AM EDT Pulse 63 09/09/2024 10:26 AM EDT Temperature 36.8 ??C (98.2 ??F) 09/09/2024 10:26 AM E DT Respiratory Rate 16 07/31/2024 10:42 AM EDT Oxygen Saturation 96% 09/09/2024 10:26 AM EDT Inhaled Oxygen Concentration - - Weight 86.9 kg (191 lb 9.6 oz) 09/09/2024 10:26 AM EDT Height 165.1 cm (5' 5 ) 09/09/2024 10:26 AM EDT Body Mass Index 31.88 09/09/2024 10:26 AM EDT Plan of Treatment Upcoming Encounters Date Type Department Care Team (Late st Contact Info) Description 07/02/2025 10:00 AM EST Ancillary Procedure [facility] [address] [facility] [address] [place] [address] 07/03/2025 10:00 AM EST Ancillary Procedure [facility] Cardiology [facility] [address] [facility] [address] [place] [address] 08/29/2025 9:30 AM EDT Office Visit [facility] [place] [address] [facility] [address] [place] [address] Rosario Tompkins PA [address] [facility] [address] [place] [address] Health Maintenance Due Date Last Done Comments Diabetes: Annual Foot Exam 11/08/1959 Diabetes: Annual Retina Eye Exam 11/08/1959 Zoster Vaccines (1 of 2) 1968 COVID-19 Vaccine (5 - Mixed Product risk season) 2024 06/24/2024, 03/09/2021, 08/14/2020, Additional history exists Diabetes: Blood Sugar Control Test (HGBA1C) 02/07/2025 08/07/2024, 01/24/2024, 01/24/2024 Depression Screening 07/26/2025 07/26/2024 Social Influencers of Health Screening 07/26/2025 07/26/2024 Falls Risk Assessment 07/31/2025 07/31/2024 Medicare Annual Wellness Visit 07/31/2025 07/31/2024 Breast Cancer Screening 08/07/2025 08/08/2023 Diabetes: Annual Urine Albumin-Creatinine Ratio (uACR) 08/07/2025 08/07/2024, 09/04/2023 Diabetes: Annual GFR (Glomerular Filtration Rate) 08/07/2025 08/07/2024, 02/02/2024, 02/02/2024, Additional history exists Hypertension/CHF/CAD Annual BMP Blood Test 08/07/2025 08/07/2024, 02/02/2024, 02/02/2024, Additional history exists Cholesterol Screening (Lipid Panel) 08/07/2029 08/07/2024, 09/04/2023 DTaP,Tdap,and Td Vaccines (3 - Td or Tdap) 03/30/2032 03/30/2022, 06/06/2019 Colorectal Cancer Screening: Colonoscopy 12/28/2032 12/28/2022 Osteoporosis Screening (Bone Density Screening) 08/07/2033 08/08/2023 Hepatitis C Screening Completed 02/04/2019 Pneumococcal Vaccine: 50+ Years Completed 11/11/2021, 02/04/2019 RSV Immunization Adult Patients Completed 04/20/2023, 04/20/2023 RSV Immunization Patients Under 20 months Aged Out 04/20/2023 No longer eligible based on patient's age to complete this topic Lung Cancer Screening (Low Dose CT) Discontinued 07/28/2023, 07/27/2022, 07/26/2021, Additional history exists Influenza Vaccine Completed 01/24/2024, , 01/19/2023, Additional history exists HIB Vaccines Aged Out [...] patient's age to complete this topic Meningococcal B Vaccine Aged Out No l onger eligible based on patient's age to complete this topic Varicella Vaccines Aged Out No longer eligible based on patient's age to complete this topic Procedures Procedure Name Priority Date/Time Associated Diagnosis Comments CT CHEST WO CONTRAST Routine 08/28/2024 5:12 PM EDT History of lung cancer Pulmonary nodule MICROALBUMIN CREATININE URINE RATIO Routine 08/07/2024 9:03 AM EDT Mixed hyperlipidemia Primary hypertension Microalbuminuria Type 2 diabetes mellitus with diabetic microalbuminuria, without long-term current use of insulin (CMS/HCC V24, CMS/HCC V28) Coronary artery disease due to lipid rich plaque COMPREHENSIVE METABOLIC PANEL Routine 08/07/2024 9:03 AM EDT Mixed hyperlipidemia Primary hypertension Microalbuminuria Type 2 diabetes mellitus with diabetic microalbuminuria, without long-term current use of insulin (CMS/HCC V24, CMS/HCC V28) Coronary artery disease due to lipid rich plaque HEMOGLOBIN A1C Routine 08/07/2024 9:03 AM EDT Mixed hyperlipidemia Primary hypertension Microalbuminuria Type 2 diabetes mellitus with diabetic microalbuminuria, without long-term current use of insulin (CMS/HCC V24, CMS/HCC V28) Coronary artery disease due to lipid rich plaque LIPID PANEL WITH REFLEX TO DIRECT LDL Routine 08/07/2024 9:03 AM EDT Mixed hyperlipidemia Primary hypertension Microalbuminuria Type 2 diabetes mellitus with diabetic microalbuminuria, without long-term current use of insulin (CMS/HCC V24, CMS/HCC V28) Coronary artery disease due to lipid rich plaque SCR MAMMO BI INCL CAD Routine 08/08/2023 [...] Recently Relevant to Health Maintenance Results * CT Chest wo Contrast (08/28/2024 5:12 PM EDT) Anatomical Region Laterality Modality Body Computed Tomogra phy 08/29/2024 11:2 9 AM EDT Impressions 08/29/2024 11:52 AM EDT Underlying chronic lung disease. Previous surgery. Interval improvement in opacities in the anterior left upper lobe suggesting improving infectious/inflammatory disease. Continued follow-up recommended. ?? -------- FINAL REPORT -------- Dictated By: Capo Gaytan Dictated Date: 08/29/2024 11:29 ET Assigned Physician: Capo Gaytan Reviewed and Electronically Signed By: Capo Gaytan Signed Date: 08/29/2024 11:52 ET Workstation ID: [id number] Transcribed By: Self Edit Transcribed Date: 08/29/2024 11:29 ET Narrative 08/29/2024 11:52 AM EDT EXAMINATION: CT CHEST WITHOUT CONTRAST CLINICAL INFORMATION: History of lung cancer. ??Prior left lower lobectomy. Multiple new nodules left upper lobe. Evaluate for interval changes COMPARISON: Portions of a previous CT 05/22/24 ?? TECHNIQUE: Multidetector CT. Examination of the chest. Examination of the chest without IV contrast. Reformatting in the coronal and sagittal planes. DLP: 611 mGy-cm Dose optimization was performed including the use of low-dose iterative reconstruction technique with automatic exposure control based on patient size. Type of contrast: None Volume of IV contrast: None Volume of contrast discarded: 0 mL FINDINGS: LUNG: There is no abnormality of the trachea or mainstem bronchi. No suspicious mass at the stump from left lower lobectomy. There is an abnormality in the anterior aspect of the left upper lobe. On the current study this has a somewhat linear/tubular configuration with focal areas of thickening extending to the pleural reflection. The surrounding groundglass disease demonstrated on 05/22/24 has improved. A brand representative peripheral nodular component anteromedial remaining left upper lobe 08/28/24-0.5 cm () 05/22/24-0.8 cm 10/30/23-not present A more central nodular component anterior left upper lobe 08/28/24-0.5 cm () 05/22/24-0.7 cm 10/30/23-not present A slightly irregular solid abnormality more centrally in the left upper lobe 08/28/24-0.5 cm () 05/22/24-0.8 cm 10/30/23-not present There are multiple areas of inspissated material within some of the airways in the left upper lobe. Small irregular nodule in the posterolateral aspect of the right upper lobe 08/28/24-0.3 cm () 05/22/24-0.3 cm 10/30/23-0.3 cm Severe underlying centrilobular emphysema. ?? MEDIASTINUM: ??There are no enlarged mediastinal or hilar lymph nodes. No suspicious abnormality of the esophagus CARDIAC: The heart is not enlarged. No pericardial fluid or thickening. Extensive calcification of the mitral annulus. ?? CORONARY CALCIFICATION: ??There are marked coronary calcifications. VASCULAR: There is no thoracic aortic aneurysm. The central pulmonary arteries are dilated. There is extensive circumferential calcification in the proximal left subclavian artery. ?? PLEURA: There is no pleural fluid or pneumothorax. Pleural reaction on the left likely related to previous surgery. ?? AXILLA/CHEST WALL: There are no enlarged axillary lymph nodes. No chest wall mass demonstrated ?? VISUALIZED UPPER ABDOMEN: ??Partially visualized fat-containing nodule left adrenal gland likely myelolipoma. Probable small cyst dome of hepatic segment 8. MUSCULOSKELETAL: No suspicious focal bony lesion. ?? Procedure Note Capo Gaytan MD - 08/29/2024 EXAMINATION: CT CHEST WITHOUT CONTRAST CLINICAL INFORMATION: History of lung cancer. Prior left lower lobectomy. Multiple new nodules left upper lobe. Evaluate for interval changes COMPARISON: Portions of a previous CT 05/22/24 TECHNIQUE: Multidetector CT. Examination of the chest. Examination of the chest without IV contrast. Reformatting in the coronal and sagittal planes. DLP: 611 mGy-cm Dose optimization was performed including the use of low-dose iterativereconstruction technique with automatic exposure control based on patientsize. Type of contrast: None Volume of IV contrast: None Volume of contrast discarded: 0 mL FINDINGS: LUNG: There is no abnormality of the trachea or mainstem bronchi. Nosuspicious mass at the stump from left lower lobectomy. There is an abnormality in the anterior aspect of the left upper lobe. Onthe current study this has a somewhat linear/tubular configuration withfocal areas of thickening extending to the pleural reflection. Thesurrounding groundglass disease demonstrated on 05/22/24 has improved. A brand representative peripheral nodular component anteromedial remaining leftupper lobe 08/28/24-0.5 cm () 05/22/24-0.8 cm 10/30/23-not present A more central nodular component anterior left upper lobe 08/28/24-0.5 cm () 05/22/24-0.7 cm 10/30/23-not present A slightly irregular solid abnormality more centrally in the left upperlobe 08/28/24-0.5 cm () 05/22/24-0.8 cm 10/30/23-not present There are multiple areas of inspissated material within some of theairways in the left upper lobe. Small irregular nodule in the posterolateral aspect of the right upperlobe 08/28/24-0.3 cm () 05/22/24-0.3 cm 10/30/23-0.3 cm Severe underlying centrilobular emphysema. MEDIASTINUM: There are no enlarged mediastinal or hilar lymph nodes. Nosuspicious abnormality of the esophagus CARDIAC: The heart is not enlarged. No pericardial fluid or thickening.Extensive calcification of the mitral annulus. CORONARY CALCIFICATION: There are marked coronary calcifications. VASCULAR: There is no thoracic aortic aneurysm. The central pulmonaryarteries are dilated. There is extensive circumferential calcification inthe proximal left subclavian artery. PLEURA: There is no pleural fluid or pneumothorax. Pleural reaction on theleft likely related to previous surgery. AXILLA/CHEST WALL: There are no enlarged axillary lymph nodes. No chestwall mass demonstrated VISUALIZED UPPER ABDOMEN: Partially visualized fat-containing nodule leftadrenal gland likely myelolipoma. Probable small cyst dome of hepaticsegment 8. MUSCULOSKELETAL: No suspicious focal bony lesion. IMPRESSION: Underlying chronic lung disease. Previous surgery. Interval improvement in opacities in the anterior left upper lobesuggesting improving infectious/inflammatory disease. Continued follow-uprecommended. -------- FINAL REPORT -------- Dictated By: Capo Gaytan Dictated Date: 08/29/2024 11:29 ET Assigned Physician: Capo Gaytan Reviewed and Electronically Signed By: Capo Gaytan Signed Date: 08/29/2024 11:52 ET Workstation ID: [id number] Transcribed By: Self Edit Transcribed Date: 08/29/2024 11:29 ET us Charity NAVARRO IMG CT PROCEDURES Final Resul t * Lipid panel with reflex to direct LDL (08/07/2024 9:03 AM EDT) Cholesterol 149 0 - 200 mg/dL LAB CHEMISTRY METHOD 08/07/2024 2:48 PM EDT [facility] Triglycerides 120 0 - 150 mg/dL LAB CHEMISTRY METHOD 08/07/2024 2:48 PM EDT [facility] HDL 70 >=40 mg/dL LAB CHEMISTRY METHOD 08/07/2024 2:48 PM EDT [facility] LDL Calculated 55 0 - 100 mg/dL LAB CHEMISTRY METHOD 08/07/2024 2:48 PM EDT [facility] VLDL Cholesterol Keven 24 mg/dL LAB CHEMISTRY METHOD 08/07/2024 2:48 PM EDT [facility] Non HDL Chol. (LDL+VLDL) 79 <145 mg/dL LAB CHEMISTRY METHOD 08/07/2024 2:48 PM EDT [facility] Chol/HDL Ratio 2.1 0.0 - 4.4 LAB CHEMISTRY METHOD 08/07/2024 2:48 PM EDT [facility] Blood Venous blood specimen / Unknown Venipuncture / Unknown 08/07/2024 9:03 AM EDT 08/07/2024 9:03 AM EDT us Ilene NAVARRO LAB BLOOD ORDERABLES Final Re sult [facility] [address] [place] [address], [place] [phone] * (ABNORMAL) Microalbumin creatinine urine ratio (08/07/2024 9:03 AM EDT) Creatinine, Urine 84.0 mg/dL LAB CHEMISTRY METHOD 08/07/2024 3:32 PM EDT [facility] [facility] Microalb, Ur 5,780.0(H ) 0.0 - 29.0 mg/L LAB CHEMISTRY METHOD 08/07/2024 3:32 PM EDT [facility] Comment:Results verified by repeat testing Microalb/Crea t Ratio 6,881(H) <30 mg/g creat LAB CHEMISTRY METHOD 08/07/2024 3:32 PM EDT [facility] Urine Urine specimen from urethra / Unknown Non-blood Collection / Unknown 08/07/2024 9:03 AM EDT 08/07/2024 9:03 AM EDT us Ilene NAVARRO LAB URINE ORDERABLES Final Re sult Performing Organization Address [facility]/ZIP Co de Phone Number [facility] [address] [place] [address], [place] [phone] * Hemoglobin A1c (08/07/2024 9:03 AM EDT) Pathologist [facility] Hemoglobin A1C 5.9 <6.5 % LAB CHEMISTRY METHOD 08/07/2024 2:26 PM EDT [facility] Mean Bld Glu Estim. 123 mg/dL LAB CHEMISTRY METHOD 08/07/2024 2:26 PM EDT [facility] Blood Venous blood specimen / Unknown Venipuncture / Unknown 08/07/2024 9:03 AM EDT 08/07/2024 9:03 AM EDT us Ilene NAVARRO LAB BLOOD ORDERABLES Final Re sult Performing Organization Address City/[facility]/ZIP Co de Phone Number [facility] [address] [place] [address], [place] [phone] * (ABNORMAL) Comprehensive metabolic panel (08/07/2024 9:03 AM EDT) Sodium 141 133 - 145 mmol/L LAB CHEMISTRY METHOD 08/07/2024 2:[address] [facility] Potassium 4.4 3.5 - 5.5 mmol/L LAB CHEMISTRY METHOD 08/07/2024 2:[address] [facility] Chloride 106 96 - 110 mmol/L LAB CHEMISTRY METHOD 08/07/2024 2:[address] [facility] CO2 28 21 - 32 mmol/L LAB CHEMISTRY METHOD 08/07/2024 2:[address] [facility] Anion Gap 7 3 - 11 LAB CHEMISTRY METHOD 08/07/2024 2:[address] [facility] Glucose 119(H) 70 - 100 mg/dL LAB CHEMISTRY METHOD 08/07/2024 2:[address] [facility] BUN 25 5 - 25 mg/dL LAB CHEMISTRY METHOD 08/07/2024 2:[address] [facility] Creatinine 1.42(H) 0.50 - 1.10 mg/dL LAB CHEMISTRY METHOD 08/07/2024 2:[address] [facility] eGFR 39(L) >=60 mL/min/1. 73m2 LAB CHEMISTRY METHOD 08/07/2024 2:[address] [facility] Comment:Calculation based on the??Chronic Kidney Disease Epidemiology Collaboration (CKD-EPI) equation refit??without adjustment for race. BUN/Creatinine Ratio 17.6 LAB CHEMISTRY METHOD 08/07/2024 2:[address] [facility] Calcium 10.2 8.5 - 10.5 mg/dL LAB CHEMISTRY METHOD 08/07/2024 2:[address] [facility] AST (SGOT) 16 10 - 42 unit/L LAB CHEMISTRY METHOD 08/07/2024 2:[address] [facility] ALT (SGPT) 19 10 - 60 unit/L LAB CHEMISTRY METHOD 08/07/2024 2:48 PM EDT [facility] Alkaline Phosphatase 72 42 - 121 unit/L LAB CHEMISTRY METHOD 08/07/2024 2:48 PM EDT [facility] Total Protein 7.5 6.0 - 8.0 g/dL LAB CHEMISTRY METHOD 08/07/2024 2:48 PM EDT [facility] Albumin 3.7 3.2 - 5.0 g/dL LAB CHEMISTRY METHOD 08/07/2024 2:48 PM EDT [facility] Total Bilirubin 0.9 0.0 - 1.4 mg/dL LAB CHEMISTRY METHOD 08/07/2024 2:48 PM EDT [facility] Blood Venous blood specimen / Unknown Venipuncture / Unknown 08/07/2024 9:03 AM EDT 08/07/2024 9:03 AM EDT us Ilene NAVARRO LAB BLOOD ORDERABLES Final Re sult [facility] [address] [place] [address], * SCR MAMMO BI INCL CAD (08/08/2023 [...] assessed Bibiana Hall MD IMG XR PROCEDURES Final Result * DXA BONE DENSITY STUDY 1+ SITS [...] bone mineral density by WHO criteria. [facility] Department of Internal Medicine recommends using [...] alternative screening schedule based on josephine Presley., [facility] June 02, 2011 for patients with osteopenia [...] bone mineral density by WHO criteria. [facility] Department of Internal Medicine recommendsusing National [...] FRAX. Optional alternative screening schedule based on lata Presley al., NEJMJanuary 2011 for patients with osteopenia (based on hip BMD T-score) is as follows: * advanced osteopenia (T scores -2.00 to -2.49), BMD testing every year * moderate osteopenia (T scores -1.50 to -1.99), BMD testing every 5years mild osteopenia or normal BMD (T scores -1.50 and higher), BMD testingevery 15 years Bibiana Hall MD IM DXA PROCEDURES Final Result * CT LUNG SCREENING LOW DOSE (07/28/2023 3:21 PM EDT) Anatomical Region Laterality Modality Computed Tomogra phy 07/28/2023 2:34 PM EDT Narrative 07/28/2023 3:21 PM EDT [facility] Diagnostic Imaging Department [address] [place] [id number] Patient: ??SUDHEER ANGEL A ?/Age/Sex: 1950 - - Unit#: ??[id number] ? Location/Status: ??SPDICATLS/REG CLI ? Mnemonic/Ordering Site: [...] Procedure Note Lexie Burns MD - 01/01/2024 [facility] Diagnostic Imaging Department [address] [place] [id number] Patient: SUDHEER ANGEL Dixon /Age/Sex: 1950 - 72 - F Unit#: [id number] Location/Status: [facility] CLI Mnemonic/Ordering Site: [facility] Ordering Physician: STEPHANE RILEY MD CT Lung [...] Date/Time: 07/28/23 1511 Sign date/Time: 07/28/23 1521 Result [facility] Stephane Riley MD IMG CT PROCEDURES Final Result * Colonoscopy (12/28/2022) Colonoscopy no interpretation , abstracted Anatomical Region Laterality Modality Other Historical Provider HEALTH MAINTENANCE Final Result * Hepatitis C Screening (02/04/2019) Hepatitis C Screening abstracted Historical Provider HEALTH MAINTENANCE Final Result from Last 3 Months or Most Recently Relevant to Health Maintenance Insurance [employer] Care Teams Guest Services Coordinator Relationship Specialty Start Date End Date Bibiana Hall MD [address] [place] [id number] PCP - General Internal Medicine 04/27/21
== END 2024-09-30 11:00 | disposition home or self-care (01) ==
LOC: HO.HPS 10:21
PROVIDERS: PCP Internal Medicine; Visit Provider Nurse Practitioner Family
DX: J44.9 Chronic obstructive pulmonary disease, unspecified (principal); Z87.891 Personal history of nicotine dependence; C34.90 Malignant neoplasm of unspecified part of unspecified bronchus or lung; Z90.2 Acquired absence of lung [part of]
CPT/HCPCS: 99214

== ENCOUNTER → 2024-09-30 10:21 | Outpatient (BNVA) | payer MEDICARE, SELFPAY | PROVIDERS: PCP Internal Medicine; Visit Provider Nurse Practitioner Family | DX: J44.9 Chronic obstructive pulmonary disease, unspecified (principal); C34.90 Malignant neoplasm of unspecified part of unspecified bronchus or lung; Z90.2 Acquired absence of lung [part of]; Z87.891 Personal history of nicotine dependence | CPT/HCPCS: 99212 ==

== ENCOUNTER → 2024-11-20 07:46 | Outpatient (REF) | payer MEDICARE, SELFPAY ==
--- OUTSIDE RECORDS SUMMARY | 2024-11-20 07:48 | XMS_ITS | Clinical Summary ---
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 Active multivit with minerals/lutein (MULTIVITAMIN 50 PLUS ORAL) Take 1 tablet by mouth 1 (one) time each day. Active amLODIPine (NORVASC) 10 mg tablet Take [...] week at night (Mondays and ) 10/23/2023 Active cilostazoL (PLETAL) 100 mg tablet TAKE [...] in the coming weeks. She does have [employer] and will contact her insurance about a continuation of care letter once we give her the CPT's. Urinary incontinence 08/11/2023 Tubular adenoma 01/19/2023 Overview (04/03/2024): 01/04 tubular adenomas, 2 high grade CKD (chronic kidney disease) stage 3, GFR 30-59 ml/min ([facility] V24, CMS/HCC V28) 11/11/2021 Type 2 diabetes mellitus wit h renal complication ([facility]/HCC V24, CMS/HCC V28) 11/11/2021 Type 2 diabetes mellitus wit h vascular disease ([facility]/HCC V24, CMS/HCC V28) 11/11/2021 Iliac artery stenosis, bilateral ([facility]/HCC V24) 0 01/08/2020 Overview (04/03/2024): Noted on arterial duplex; 01/01 Following with vascular Subclavian artery stenosis ([facility]/HCC V24) 020 Overview (04/03/2024): Pending cta of [...] () Had negative nuclear stress test with [facility] January 2021 COPD (chronic obstructive pu lmonary disease) ([facility] V24, [facility] V28) 06/13/2018 Gallstones 06/13/2018 Hyperlipidemia 06/13/2018 Hypertension 06/13/2018 Microalbuminuria 06/13/2018 Peripheral artery disease ([facility] V24) 06/13/19 19 Overview (04/03/2024): 2017 Left Iliac Artery stent. Perioperative extravasation Leading to massive blood loss/hypovolemic shock and Code Blue. Massive transfusions. S/p retroperitoneal bleed Resolved Problems Problem Noted Date Diagnosed Date Resolved Date Lung cancer ([facility] V24, [facility] V28) 12/11/2023 05/30/2024 Overview (04/03/2024): 12/05 [...] she also requested to be referred to [facility] with Dr. Pat. She was informed [...] Encounters Date Type Department Care Team Description 11/01/2024 7:41 AM EDT - 11/01/2024 11:59 PM EDT Hospital Encounter [facility] Interventional Radiology [address] [place] [id number] Chronic kidney disease, stage 3b (CMS/HCC V24, CMS/HCC V28); Proteinuria, unspecified; Disorder of arteries and arterioles, unspecified (CMS/HCC V24); Essential (primary) hypertension; Type 2 diabetes mellitus with diabetic nephropathy (CMS/HCC V24, CMS/HCC V28); Type 2 diabetes mellitus without complications (CMS/HCC V24, CMS/HCC V28); Unspecified atherosclerosis Discharge Disposition: Home or Self Care 10/17/2024 Telephone Vascular Surgery - [place] [address] [facility] [address] [place] [address] Lyle Carpenter MD 09/09/2024 10:30 AM EDT Office Visit Thoracic Surgery [facility] [address] [facility] [address] [place] [address] Peyton Felix NP History of lung cancer (Primary Dx) 08/28/2024 4:47 PM EDT - 08/28/2024 11:59 PM EDT Hospital Encounter [facility] CT Scan [address] [place] [phone] History of lung cancer; Pulmonary nodule Discharge Disposition: Home or Self Care 08/28/2024 2:00 PM EDT Office Visit Vascular Surgery - [place] [address] [place] [address] Rosario Tompkins PA Carotid stenosis, asymptomatic, bilateral (Primary Dx); PAD (peripheral artery disease) ([facility] V24); History of left-sided carotid endarterectomy; Subclavian artery stenosis ([facility] V24) from Last 3 Months Immunizations [...] Surgery Date Site/Laterality Comments OTHER SURGICAL HISTORY 2017 PROCEDURE: HISTORY OTHER; COMMENT: ruptured iliac artery s/p retroperitoneal bleed OTHER SURGICAL HISTORY 2017 Left PROCEDURE: HISTORY OTHER; COMMENT: Iliac artery endovascular stent CAROTID ENDARTERECTOMY PROCEDURE: HISTORICAL CAROTID ENDART; COMMENT: 03/2019 OTHER SURGICAL HISTORY 08/01/2023 PROCEDURE: X-RAY EXAM OF ARM/LEG ARTERY OTHER SURGICAL HISTORY 08/01/2023 PROCEDURE: FL VASCULAR EMBOLIZATION OR OCCLUSION VENOUS RS&I OTHER SURGICAL HISTORY 08/01/2023 PROCEDURE: FL VASCULAR EMBOLIZATION OR OCCLUSION ARTERIAL RS&I; COMMENT: x2 OTHER SURGICAL HISTORY 08/01/2023 PROCEDURE: ULTRASOUND GUIDANCE FOR VASCULAR AC; COMMENT: x2 OTHER SURGICAL HISTORY 08/01/2023 PROCEDURE: FL REVASC INTRAVASC LITHOTRIPSY; COMMENT: Aorta OTHER SURGICAL HISTORY 08/01/2023 Left PROCEDURE: FL REVASC INTRA LITHOTRIP-STENT; COMMENT: left AYLIN OTHER SURGICAL HISTORY 08/01/2023 Left PROCEDURE: FL REVASC INTRA LITHOTRIP-STENT; COMMENT: left, EIA OTHER SURGICAL HISTORY 11/28/2023 Left PROCEDURE: FL THORACOSCOPY W/LOBECTOMY SINGLE LOBE; COMMENT: LLL lobectomy Medical History Medical History Date Comments Hypertension 06/13/2018 DX:Hypertension Hyperlipidemia 06/13/2018 DX:Hyperlipidemi a COPD (chronic obstructive pu lmonary disease) ([facility]/HCC V24, CMS/HCC V28) 06/13/2018 DX:COPD (chronic o bstructive pulmonary disease) ([facility]) Gallstones 06/13/2018 DX:Gallstones Proteinuria 06/13/2018 DX:Proteinuria; [...] ECHO 01/30/17. EF > 70 % Old MN (myocardial infarction) 06/13/2018 D X:Old MN (myocardial infarction); COMMENT: 2016 significant Troponin leak [...] for your loved ones. For example, child watch attendant or elderly care for an older adult? [...] Sign Reading Time Taken Comments Blood Pressure 140/79 11/01/2024 2:45 PM EDT Pulse 91 11/01/2024 2:45 PM EDT Temperature 36.7 C (98 F) 11/01/2024 8:03 AM EDT Respiratory Rate 22 11/01/2024 2:45 PM EDT Oxygen Saturation 96% 11/01/2024 2:20 PM EDT Inhaled Oxygen Concentration - - Weight 86.2 kg (190 lb) 11/01/2024 8:03 AM EDT Height 165.1 cm (5' 5 ) 11/01/2024 8:03 AM EDT Body Mass Index 31.62 11/01/2024 8:03 AM EDT Plan of Treatment Upcoming Encounters Date Type Department Care Team (Late st Contact Info) Description 01/31/2025 9:30 AM EDT Office Visit Adult Medicine [facility] [address] [place] [phone] Bibiana Hall MD [address] [place], [place] 07/02/2025 10:00 AM EST Ancillary Procedure [facility] Cardiology [facility] - [facility] [address] [phone] 07/03/2025 10:00 AM EST Ancillary Procedure [facility] - [facility] [address] [phone] 08/29/2025 9:30 AM EDT Office Visit Vascular Surgery - [place] 300 [facility] [address] [place] [address] Rosario Tompkins PA 300 [facility] [address] [place] [address] Health Maintenance Due Date Last Done Comments Diabetes: Annual Foot Exam 11/08/1959 Diabetes: Annual Retina Eye Exam 11/08/1959 Zoster Vaccines (1 of 2) 1968 COVID-19 Vaccine (5 - Mixed Product risk season) 2024 06/24/2024, 03/09/2021, 08/14/2020, Additional history exists Influenza Vaccine (#1) 2025 , 01/19/2023, 01/19/2023, Additional history exists Diabetes: Blood Sugar Control Test (HGBA1C) 02/07/2025 08/07/2024, 01/24/2024, 01/24/2024 Depression Screening 07/26/2025 07/26/2024 Social Influencers of Health Screening 07/26/2025 07/26/2024 Falls Risk Assessment 07/31/2025 07/31/2024 Medicare Annual Wellness Visit 07/31/2025 07/31/2024 Diabetes: Annual Urine Albumin-Creatinine Ratio (uACR) 08/07/2025 08/07/2024, 09/04/2023 Diabetes: Annual GFR (Glomerular Filtration Rate) 10/11/2025 10/11/2024, 10/11/2024, 10/11/2024, Additional history exists Hypertension/CHF/CAD Annual BMP Blood Test 10/11/2025 10/11/2024, 10/11/2024, 10/11/2024, Additional history exists Cholesterol Screening (Lipid Panel) [...] Discontinued 07/28/2023, 07/27/2022, 07/26/2021, Additional history exists Breast Cancer Screening Discontinued 08/08/2023 HIB Vaccines Aged Out No longer eligi [...] on patient's age to complete this topic Medical Devices Implanted Type Area Water Jet Loom Fixer Device Identifier Shelf Expiration Date Model / Serial / Lot Sponge Surgifoam Gel 12 X 7mm - [id number] Implanted:Qty: 1 on 11/01/2024 by Lisa Gao MD at [facility] Hemostasis Right: Flank [employer] 04/09/20281971 [id number] Sponge Surgifoam Gel 12 X 7mm - [id number] Implanted:Qty: 1 on 11/01/2024 by Lisa Gao MD at [facility] Hemostasis Right: Flank [employer] 04/12/20281971 [id number] Procedures Procedure Name Priority Date/Time Associated Diagnosis Comments HEMOGLOBIN AND HEMATOCRIT STAT 11/01/2024 2:25 PM EDT IR BX NDL RENAL PERC RIGHT Routine 11/01/2024 12:00 PM EDT Chronic kidney disease, stage 3b (CMS/HCC V24, CMS/HCC V28) Proteinuria, unspecified Disorder of arteries and arterioles, unspecified (CMS/HCC V24) Essential (primary) hypertension Type 2 diabetes mellitus with diabetic nephropathy (CMS/HCC V24, CMS/HCC V28) Type 2 diabetes mellitus without complications (CMS/HCC V24, CMS/HCC V28) Unspecified atherosclerosis AP KIDNEY BIOPSY Routine 11/01/2024 11:4 9 AM EDT Chronic kidney disease, stage 3b (CMS/HCC V24, CMS/HCC V28) Proteinuria, unspecified Disorder of arteries and arterioles, unspecified (CMS/HCC V24) Essential (primary) hypertension Type 2 diabetes mellitus with diabetic nephropathy (CMS/HCC V24, CMS/HCC V28) Type 2 diabetes mellitus without complications (CMS/HCC V24, CMS/HCC V28) Unspecified atherosclerosis TISSUE EXAM Routine 11/01/2024 11:49 AM EDT Chronic kidney disease, stage 3b (CMS/HCC V24, CMS/HCC V28) Proteinuria, unspecified Disorder of arteries and arterioles, unspecified (CMS/HCC V24) Essential (primary) hypertension Type 2 diabetes mellitus with diabetic nephropathy (CMS/HCC V24, CMS/HCC V28) Type 2 diabetes mellitus without complications (CMS/HCC V24, CMS/HCC V28) Unspecified atherosclerosis PROTHROMBIN TIME WITH INR STAT 11/01/2024 10:22 AM EDT POCT VENOUS BASIC METABOLIC PROFILE, HH Routine 11/01/2024 9:59 AM EDT CBC WITH AUTO DIFFERENTIAL Routine 10/11/2024 9:04 AM EDT Chronic kidney disease (CKD) stage G3b/A1, moderately decreased glomerular filtration rate (GFR) between 30-44 mL/min/1.73 square meter and albuminuria creatinine ratio les* (CMS/HCC V24, CMS/HCC V28) Disease of artery (CMS/HCC V24) Diabetic kidney (CMS/HCC V24, CMS/HCC V28) Personal history of cardiovascular disorder COMPREHENSIVE METABOLIC PANEL Routine 10/11/2024 9:04 AM EDT Chronic kidney disease (CKD) stage G3b/A1, moderately decreased glomerular filtration rate (GFR) between 30-44 mL/min/1.73 square meter and albuminuria creatinine ratio les* (CMS/HCC V24, CMS/HCC V28) Disease of artery (CMS/HCC V24) Diabetic kidney (CMS/HCC V24, CMS/HCC V28) Personal history of cardiovascular disorder URIC ACID Routine 10/11/2024 9:04 AM EDT Chronic kidney disease (CKD) stage G3b/A1, moderately decreased glomerular filtration rate (GFR) between 30-44 mL/min/1.73 square meter and albuminuria creatinine ratio les* (CMS/HCC V24, CMS/HCC V28) Disease of artery (CMS/HCC V24) Diabetic kidney (CMS/HCC V24, CMS/HCC V28) Personal history of cardiovascular disorder MAGNESIUM Routine 10/11/2024 9:04 AM EDT Chronic kidney disease (CKD) stage G3b/A1, moderately decreased glomerular filtration rate (GFR) between 30-44 mL/min/1.73 square meter and albuminuria creatinine ratio les* (CMS/HCC V24, CMS/HCC V28) Disease of artery (CMS/HCC V24) Diabetic kidney (CMS/HCC V24, CMS/HCC V28) Personal history of cardiovascular disorder PHOSPHORUS Routine 10/11/2024 9:04 AM EDT Chronic kidney disease (CKD) stage G3b/A1, moderately decreased glomerular filtration rate (GFR) between 30-44 mL/min/1.73 square meter and albuminuria creatinine ratio les* (CMS/HCC V24, CMS/HCC V28) Disease of artery (CMS/HCC V24) Diabetic kidney (CMS/HCC V24, CMS/HCC V28) Personal history of cardiovascular disorder PARATHYROID HORMONE INTACT Routine 10/11/2024 9:04 AM EDT Chronic kidney disease (CKD) stage G3b/A1, moderately decreased glomerular filtration rate (GFR) between 30-44 mL/min/1.73 square meter and albuminuria creatinine ratio les* (CMS/HCC V24, CMS/HCC V28) Disease of artery (CMS/HCC V24) Diabetic kidney (CMS/HCC V24, CMS/HCC V28) Personal history of cardiovascular disorder VITAMIN D 25 HYDROXY Routine 10/11/2024 9:04 AM EDT Chronic kidney disease (CKD) stage G3b/A1, moderately decreased glomerular filtration rate (GFR) between 30-44 mL/min/1.73 square meter and albuminuria creatinine ratio les* (CMS/HCC V24, CMS/HCC V28) Disease of artery (CMS/HCC V24) Diabetic kidney (CMS/HCC V24, CMS/HCC V28) Personal history of cardiovascular disorder CBC AND DIFFERENTIAL Routine 10/11/2024 9:04 AM EDT Chronic kidney disease (CKD) stage G3b/A1, moderately decreased glomerular filtration rate (GFR) between 30-44 mL/min/1.73 square meter and albuminuria creatinine ratio les* (CMS/HCC V24, CMS/HCC V28) Disease of artery (CMS/HCC V24) Diabetic kidney (CMS/HCC V24, CMS/HCC V28) Personal history of cardiovascular disorder PROTEIN AND CREATININE WITH RATIO, URINE Routine 10/11/2024 9:04 AM EDT Chronic kidney disease (CKD) stage G3b/A1, moderately decreased glomerular filtration rate (GFR) between 30-44 mL/min/1.73 square meter and albuminuria creatinine ratio les* (CMS/HCC V24, CMS/HCC V28) Disease of artery ([facility] V24) Diabetic kidney (CMS/[facility] V24, CMS/HCC V28) Personal history of cardiovascular disorder CT CHEST WO CONTRAST Routine 08/28/2024 5:12 PM EDT History of lung cancer Pulmonary nodule MICROALBUMIN CREATININE URINE RATIO Routine 08/07/2024 9:03 AM EDT Mixed hyperlipidemia Primary hypertension Microalbuminuria Type 2 diabetes mellitus with diabetic microalbuminuria, without long-term current use of insulin ([facility] V24, CMS/[facility] V28) Coronary artery disease due to lipid rich plaque HEMOGLOBIN A1C Routine 08/07/2024 9:03 AM EDT Mixed hyperlipidemia Primary hypertension Microalbuminuria Type 2 diabetes mellitus with diabetic microalbuminuria, without long-term current use of insulin ([facility] V24, CMS/[facility] V28) Coronary artery disease due to lipid rich plaque LIPID PANEL WITH REFLEX TO DIRECT LDL Routine 08/07/2024 9:03 AM EDT Mixed hyperlipidemia Primary hypertension Microalbuminuria Type 2 diabetes mellitus with diabetic microalbuminuria, without long-term current use of insulin ([facility] V24, CMS/HCC V28) Coronary artery disease due [...] Recently Relevant to Health Maintenance Results * Hemoglobin and hematocrit (11/01/2024 2:25 PM EDT) Hemoglobin 13.3 11.5 - 16.0 g/dL LAB HEMETOLOGY METHOD 11/01/2024 2:56 PM EDT [facility] Hematocrit 41.3 35.0 - 47.0 % LAB HEMETOLOGY METHOD 11/01/2024 2:56 PM EDT [facility] Blood Venous blood specimen / Unknown Venipuncture / Unknown 11/01/2024 2:25 PM EDT 11/01/2024 2:47 PM EDT Lisa Gao MD LAB BLOOD ORDERABLES Final Resu lt [facility] [address] [place] [address], [place] [phone] * IR Bx Ndl Renal Perc Right (11/01/2024 12:00 PM EDT) Anatomical Region Laterality Modality Kidney Right Interventional R adiology 11/01/2024 12:3 0 PM EDT Impressions 11/01/2024 1:[address]-guided random core renal biopsy using coaxial technique. -------- FINAL REPORT -------- Dictated By: Lisa Gao Dictated Date: 11/01/2024 12:30 ET Assigned Physician: Lisa Gao Reviewed and Electronically Signed By: Lisa Gao Signed Date: 11/01/2024 13:19 ET Workstation ID: [id number] Transcribed By: Self Edit Transcribed Date: 11/01/2024 12:34 ET Narrative 11/01/2024 1:19 PM EDT INDICATION: Proteinuria PROCEDURE: Consent obtained for CT guided random core renal biopsy under conscious sedation. prior relevant studies: PET/CT dated August 17, 2023 MEDICATIONS: Local anesthesia: 12 cc of 1% buffered lidocaine administered subcutaneously. Sedation: Moderate intravenous sedation was initiated and maintained for 45 minutes while the patient was independently monitored by the radiology nurse under the supervision of the interventional radiologist. A total of 2 mg of Versed and 50 mcg of fentanyl administered during the procedure. Scanner: [employer] Brightspeed [address] Dose reduction technique: AEC (automated exposure control) Dose: total exam DLP 565 mGY per cm TECHNIQUE: Patient placed prone on the CT table and multiple axial images obtained through the kidneys. Appropriate area the skin overlying the right kidney was marked, draped and prepped using maximum sterile barrier. Moderate sedation initiated with administration of local anesthetic. Under CT fluoroscopic guidance a 17-gauge coaxial needle was advanced into the periphery of the localized kidney. 3 18-gauge core biopsy samples obtained. Gelfoam was advanced through the coaxial needle and then the needle was removed. FINDINGS: Initial limited CT images of the abdomen demonstrate somewhat small kidneys bilaterally without evidence of cortical thinning. No hydronephrosis. Small calcifications on the right kidney are likely vascular with small stones not excluded. Based on imaging right kidney localized for biopsy. Images obtained during localization and needle positioning demonstrate coaxial needle positioned within the periphery of the lower pole of the right kidney posterior laterally. Images obtained after biopsy demonstrate no significant postbiopsy hemorrhage. Gelfoam slurry is well positioned within the perinephric space at the level of the puncture site. SPECIMENS: Core biopsy samples placed in sterile saline within a Richardson dish and sent to the pathology department. Procedure Note Lisa Gao MD - 11/01/2024 INDICATION: Proteinuria PROCEDURE: Consent obtained for CT guided random core renal biopsy underconscious sedation. prior relevant studies: PET/CT dated August 17, 2023 MEDICATIONS: Local anesthesia: 12 cc of 1% buffered lidocaine administeredsubcutaneously. Sedation: Moderate intravenous sedation was initiated and maintained for45 minutes while the patient was independently monitored by the radiologynurse under the supervision of the interventional radiologist. A total of2 mg of Versed and 50 mcg of fentanyl administered during the procedure. Scanner: [employer] Brightspeed [address] Dose reduction technique: AEC (automated exposure control) Dose: total exam DLP 565 mGY per cm TECHNIQUE: Patient placed prone on the CT table and multiple axial imagesobtained through the kidneys. Appropriate area the skin overlying theright kidney was marked, draped and prepped using maximum sterile barrier.Moderate sedation initiated with administration of local anesthetic. UnderCT fluoroscopic guidance a 17-gauge coaxial needle was advanced into theperiphery of the localized kidney. 3 18-gauge core biopsy samplesobtained. Gelfoam was advanced through the coaxial needle and then theneedle was removed. FINDINGS: Initial limited CT images of the abdomen demonstrate somewhatsmall kidneys bilaterally without evidence of cortical thinning. Nohydronephrosis. Small calcifications on the right kidney are likelyvascular with small stones not excluded. Based on imaging right kidneylocalized for biopsy. Images obtained during localization and needle positioning demonstratecoaxial needle positioned within the periphery of the lower pole of theright kidney posterior laterally. Images obtained after biopsy demonstrate no significant postbiopsyhemorrhage. Gelfoam slurry is well positioned within the perinephric spaceat the level of the puncture site. SPECIMENS: Core biopsy samples placed in sterile saline within a Petridish and sent to the pathology department. IMPRESSION: CT-guided random core renal biopsy using coaxial technique. -------- FINAL REPORT -------- Dictated By: Lisa Gao Dictated Date: 11/01/2024 12:30 ET Assigned Physician: Lisa Gao Reviewed and Electronically Signed By: Lisa Gao Signed Date: 11/01/2024 13:19 ET Workstation ID: [id number] Transcribed By: Self Edit Transcribed Date: 11/01/2024 12:34 ET Chepe West MD IMG IR PROCEDURES Final Res ult * AP Kidney biopsy (11/01/2024 11:49 AM EDT) Scan Result See Scanned Result 11/11/2024 3:46 PM EDT EXTERNAL LAB (NON-INTERFAC ED) Tissue Right kidney structure / Unknown 11/01/2024 11:49 AM EDT 11/01/2024 12:23 PM EDT Lisa Gao MD LAB PATHOLOGY ORDERABLES Final Result EXTERNAL LAB (NON-INTERFACED) * Tissue exam (11/01/2024 11:49 AM EDT) Addendum This case was sent to [facility], Department of Pathology, [place], [place] (CLIA: [id number]). 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, most likely adaptive and in the setting of vascular cortical scarring, obesity, and diabetes mellitus Mild tubular injury and very focal and mild acute interstitial nephritis, most likely related to the vascular scarring - An independent and superimposed episode of acute kidney injury and a currently active acute interstitial nephritis are unlikely but cannot be ruled out with absolute certainty Mild mesangial expansion, most likely related to chronic smoking and early diabetic changes There is no evidence of an immune complex-mediated disease or a paraprotein deposition disease, and a diffuse podocytopathy is very unlikely, and there are not signs of a currently active glomerulitis Moderately advanced chronic changes of the parenchyma, including: - 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 West on 10/07/2024 at 12:22pm. Final diagnosis by Jeremias Hooker M.D., Electronically signed on Friday November 08, 2024 at 04:44:28PM (See scanned report for full kidney biopsy diagnosis from [facility], [place], [place]) 11/11/2024 12:43 PM EDT [facility] ([facility]) [facility] Addendum electronically signed by Nick Onofre MD on 11/11/2024 at 12:43 PM Final Diagnosis Right kidney biopsies for light, immunofluorescence and electron microscopy: -[facility]. [facility] 11/11/2024 12:43 PM EDT [facility] Gross Description A. Kidney, Right, : Labeled kidney R . Received fresh in saline are 3 morales-pink soft tissue cores, ranging from 1.1 x 0.1 cm to 1.8 x 0.1 cm, which are transfered to formalin for light microscopy, Gee fixative for Immunofluorescence, and Glutaraldehyde for electron microscopy. The specimen is entirely submitted to [facility]. DEJA 11/11/2024 12:43 PM EDT [facility] Disclaimer Unless otherwise specified, all tissue is 10% NB formalin fixed and paraffin embedded. 11/11/2024 12:43 PM EDT [facility] [facility] Tissue Right kidney structure / Unknown 11/01/2024 11:49 AM EDT 11/01/2024 12:21 PM EDT Lisa Gao MD LAB PATHOLOGY ORDERABLES Edited Result - Final [facility] [address] [place] [address], [place] [phone] * Prothrombin time with INR (11/01/2024 10:22 AM EDT) Protime 11.8 10.6 - 13.9 sec LAB COAGULATION METHOD 11/01/2024 10:34 AM EDT [facility] INR 0.9 LAB COAGULATION METHOD 11/01/2024 10:34 AM EDT [facility] Blood Venous blood specimen / Unknown 11/01/2024 10:22 AM EDT 11/01/2024 10:22 AM EDT us Lisa Gao MD LAB BLOOD ORDERABLES Final Resu lt [facility] [address] [place] [address], * (ABNORMAL) POCT venous basic metabolic profile, (11/01/2024 9:59 AM EDT) Glucose Venous POCT 110(H) 70 - 100 mg/dL 11/01/2024 10:26 AM EDT [facility] Sodium Venous POCT 142 135 - 145 mmol/L 11/01/2024 10:26 AM EDT [facility] Potassium Venous POCT 3.8 3.5 - 5.5 mmol/L 11/01/2024 10:26 AM T [facility] Chloride Venous POCT 106 96 - 110 mmol/L 11/01/2024 10:26 AM T [facility] TCO2 Venous POCT 26 21 - 32 mmol/L 11/01/2024 10:26 AM [facility] BUN Venous POCT 32(H) 5 - 25 mg/dL 11/01/2024 10:26 AM T [facility] Creatinine Venous POCT 1.4(H) 0.5 - 1.1 mg/dL 11/01/2024 10:26 AM [facility] Ionized Calcium Venous POCT 5.20 4.50 - 5.30 mg/dL 11/01/2024 10:26 AM T [facility] Hemoglobin Venous POCT 14.6 11.5 - 16.0 g/dL 11/01/2024 10:26 AM T [facility] Hematocrit Venous POCT 43 35 - 47 % 11/01/2024 10:26 AM [facility] Blood Venous blood specimen / Unknown 11/01/2024 9:59 AM EDT 11/01/2024 10:27 AM EDT us Generic Provider Poct LAB POINT OF CARE TEST DOCKED DEVICE UNSOLICITED RESULTS Final Result [facility] [address] [place] [address], * (ABNORMAL) CBC auto differential (10/11/2024 9:04 AM EDT) WBC 7.0 4.8 - 10.8 K/mcL LAB HEMETOLOGY METHOD 10/11/2024 9:45 AM EDT [facility] RBC 4.40 3.80 - 4.80 M/mcL LAB HEMETOLOGY METHOD 10/11/2024 9:45 AM EDT [facility] Hemoglobin 13.1 11.5 - 16.0 g/dL LAB HEMETOLOGY METHOD 10/11/2024 9:45 AM EDT [facility] Hematocrit 40.1 35.0 - 47.0 % LAB HEMETOLOGY METHOD 10/11/2024 9:45 AM EDT [facility] MCV 92.2 79.0 - 98.0 FL LAB HEMETOLOGY METHOD 10/11/2024 9:45 AM EDT [facility] MCH 30.1 27.0 - 32.0 pcg LAB HEMETOLOGY METHOD 10/11/2024 9:45 AM EDT [facility] MCHC 32.7 32.0 - 37.0 g/dL LAB HEMETOLOGY METHOD 10/11/2024 9:45 AM EDT [facility] RDW 14.4 11.0 - 15.0 % LAB HEMETOLOGY METHOD 10/11/2024 9:45 AM EDT [facility] Platelets 232 130 - 400 K/mcL LAB HEMETOLOGY METHOD 10/11/2024 9:45 AM EDT [facility] MPV 11.3(H) 7.0 - 11.0 FL LAB HEMETOLOGY METHOD 10/11/2024 9:45 AM [facility] NRBC 0.0 <1.0 % LAB HEMETOLOGY METHOD 10/11/2024 9:45 AM [facility] NRBC Absolute 0.00 <0.10 K/mcL LAB HEMETOLOGY METHOD 10/11/2024 9:45 AM [facility] Neutrophils Relative 57.3 % LAB HEMETOLOGY METHOD 10/11/2024 9:45 AM [facility] Lymphocytes Relative 27.4 % LAB HEMETOLOGY METHOD 10/11/2024 9:45 AM [facility] Monocytes Relative 10.4 % LAB HEMETOLOGY METHOD 10/11/2024 9:45 AM [facility] Eosinophils Relative 4.0 % LAB HEMETOLOGY METHOD 10/11/2024 9:45 AM [facility] Basophils Relative 0.6 % LAB HEMETOLOGY METHOD 10/11/2024 9:45 AM [facility] Immature Granulocytes Relative 0.3 % LAB HEMETOLOGY METHOD 10/11/2024 9:45 AM [facility] Neutrophils Absolute 4.04 1.50 - 7.00 K/mcL LAB HEMETOLOGY METHOD 10/11/2024 9:45 AM [facility] Lymphocytes Absolute 1.93 1.00 - 5.00 K/mcL LAB HEMETOLOGY METHOD 10/11/2024 9:45 AM [facility] Monocytes Absolute 0.73 0.20 - 1.00 K/mcL LAB HEMETOLOGY METHOD 10/11/2024 9:45 AM [facility] Eosinophils Absolute 0.28 0.00 - 0.50 K/mcL LAB HEMETOLOGY METHOD 10/11/2024 9:45 AM [facility] Basophils Absolute 0.04 0.00 - 0.20 K/mcL LAB HEMETOLOGY METHOD 10/11/2024 9:45 AM EDT [facility] Immature Granulocytes Absolute 0.02 0.00 - 0.03 K/mcL LAB HEMETOLOGY METHOD 10/11/2024 9:45 AM EDT [facility] Blood Venous blood specimen / Unknown Venipuncture / Unknown 10/11/2024 9:04 AM EDT 10/11/2024 9:31 AM EDT us Chepe Wets MD LAB BLOOD ORDERABLES Final Result [facility] [address] [place] [address], [place] [phone] * (ABNORMAL) Protein and creatinine with ratio, urine (10/11/2024 9:04 AM EDT) Protein, Urine 189 mg/dL LAB CHEMISTRY METHOD 10/11/2024 10:42 AM EDT [facility] Prot/Creat, Ur 6.30(H) <=0.20 mg/mg creat LAB CHEMISTRY METHOD 10/11/2024 10:42 AM EDT [facility] Creatinine, Urine 30.0 mg/dL LAB CHEMISTRY METHOD 10/11/2024 10:42 AM T [facility] Urine Urine specimen obtained by clean catch procedure / Unknown Non-blood Collection / Unknown 10/11/2024 9:04 AM EDT 10/11/2024 9:34 AM EDT us Chepe West MD LAB URINE ORDERABLES Final Result Performing Organization Address [facility]/ZIP Co de Phone Number [facility] [address] [place] [address], [place] [phone] * Vitamin D 25 hydroxy (10/11/2024 9:04 AM EDT) Vit D, 25-Hydroxy 36.1 30.0 - 80.0 ng/mL LAB CHEMISTRY METHOD 10/11/2024 11:36 AM EDT [facility] Blood Venous blood specimen / Unknown Venipuncture / Unknown 10/11/2024 9:04 AM EDT 10/11/2024 9:33 AM EDT us Chepe West MD LAB BLOOD ORDERABLES Final Result Performing Organization Address City/[facility]/ZIP Co de Phone Number [facility] [address] [place] [address], [place] [phone] * Uric acid (10/11/2024 9:04 AM EDT) Uric Acid 6.4 3.1 - 7.8 mg/dL LAB CHEMISTRY METHOD 10/11/2024 10:27 AM EDT [facility] Blood Venous blood specimen / Unknown Venipuncture / Unknown 10/11/2024 9:04 AM EDT 10/11/2024 9:33 AM EDT us Chepe West MD LAB BLOOD ORDERABLES Final Result Performing Organization Address [facility] de Phone Number [facility] [address] [place] [address], [place] [phone] * Phosphorus (10/11/2024 9:04 AM EDT) Phosphorus 4.0 2.5 - 4.5 mg/dL LAB CHEMISTRY METHOD 10/11/2024 10:28 AM EDT [facility] Blood Venous blood specimen / Unknown Venipuncture / Unknown 10/11/2024 9:04 AM EDT 10/11/2024 9:33 AM EDT us Chepe West MD LAB BLOOD ORDERABLES Final Result Performing Organization Address City/[facility]/ZIP Co de Phone Number [facility] [address] [place] [address], [place] [phone] * Parathyroid hormone intact (10/11/2024 9:04 AM EDT) [facility] PTH 43.2 18.5 - 88.0 pcg/mL LAB CHEMISTRY METHOD 10/11/2024 11:36 AM EDT [facility] Blood Venous blood specimen / Unknown Venipuncture / Unknown 10/11/2024 9:04 AM EDT 10/11/2024 9:33 AM EDT Chepe West MD LAB BLOOD ORDERABLES Final Result Performing Organization Address City/[facility]/ZIP Co de Phone Number [facility] [address] [place] [address], [place] [phone] * Magnesium (10/11/2024 9:04 AM EDT) [facility] Magnesium 2.6 1.9 - 2.6 mg/dL LAB CHEMISTRY METHOD 10/11/2024 10:27 AM EDT [facility] Blood Venous blood specimen / Unknown Venipuncture / Unknown 10/11/2024 9:04 AM EDT 10/11/2024 9:33 AM EDT Chepe West MD LAB BLOOD ORDERABLES Final Result [facility] [address] [place] [address], [place] [phone] * (ABNORMAL) Comprehensive metabolic panel (10/11/2024 9:04 AM EDT) [facility] Sodium 140 133 - 145 mmol/L LAB CHEMISTRY METHOD 10/11/2024 10:28 AM EDT [facility] Potassium 4.6 3.5 - 5.5 mmol/L LAB CHEMISTRY METHOD 10/11/2024 10:28 AM EDT [facility] Chloride 109 96 - 110 mmol/L LAB CHEMISTRY METHOD 10/11/2024 10:28 AM [facility] CO2 26 21 - 32 mmol/L LAB CHEMISTRY METHOD 10/11/2024 10:28 AM [facility] Anion Gap 5 3 - 11 LAB CHEMISTRY METHOD 10/11/2024 10:28 AM [facility] Glucose 127(H) 70 - 100 mg/dL LAB CHEMISTRY METHOD 10/11/2024 10:28 AM [facility] BUN 34(H) 5 - 25 mg/dL LAB CHEMISTRY METHOD 10/11/2024 10:28 AM [facility] Creatinine 1.99(H) 0.50 - 1.10 mg/dL LAB CHEMISTRY METHOD 10/11/2024 10:28 AM [facility] eGFR 26(L) >=60 mL/min/1. 73m2 LAB CHEMISTRY METHOD 10/11/2024 10:28 AM [facility] Comment:Calculation based on the Chronic Kidney Disease Epidemiology Collaboration (CKD-EPI) equation refit without adjustment for race. BUN/Creatinine Ratio 17.1 LAB CHEMISTRY METHOD 10/11/2024 10:28 AM [facility] Calcium 9.8 8.5 - 10.5 mg/dL LAB CHEMISTRY METHOD 10/11/2024 10:28 AM [facility] AST (SGOT) 13 10 - 42 unit/L LAB CHEMISTRY METHOD 10/11/2024 10:28 AM [facility] ALT (SGPT) 18 10 - 60 unit/L LAB CHEMISTRY METHOD 10/11/2024 10:28 AM [facility] Alkaline Phosphatase 61 42 - 121 unit/L LAB CHEMISTRY METHOD 10/11/2024 10:28 AM [facility] Total Protein 7.4 6.0 - 8.0 g/dL LAB CHEMISTRY METHOD 10/11/2024 10:28 AM [facility] Albumin 3.5 3.2 - 5.0 g/dL LAB CHEMISTRY METHOD 10/11/2024 10:28 AM EDT [facility] Total Bilirubin 1.0 0.0 - 1.4 mg/dL LAB CHEMISTRY METHOD 10/11/2024 10:28 AM EDT [facility] Blood Venous blood specimen / Unknown Venipuncture / Unknown 10/11/2024 9:04 AM EDT 10/11/2024 9:33 AM EDT us Chepe West MD LAB BLOOD ORDERABLES Final Result [facility] [address] [place] [address], [place] [phone] * CT Chest wo Contrast (08/28/2024 5:12 PM EDT) Anatomical Region Laterality Modality Body Computed Tomogra phy 08/29/2024 11:2 9 AM EDT Impressions 08/29/2024 11:52 AM EDT Underlying chronic lung disease. Previous surgery. Interval improvement in opacities in the anterior left upper lobe suggesting improving infectious/inflammatory disease. Continued follow-up recommended. -------- FINAL REPORT -------- Dictated By: Capo Gaytan Dictated Date: 08/29/2024 11:29 ET Assigned Physician: Capo Gaytan Reviewed and Electronically Signed By: Capo Gaytan Signed Date: 08/29/2024 11:52 ET Workstation ID: [id number] Transcribed By: Self Edit Transcribed Date: 08/29/2024 [...] disease demonstrated on 05/22/24 has improved. A event representative peripheral nodular component anteromedial remaining left [...] thickening. Extensive calcification of the mitral annulus. CORONARY CALCIFICATION: There are marked coronary calcifications. VASCULAR: There is no thoracic aortic aneurysm. The central pulmonary arteries are dilated. There is extensive circumferential calcification in the proximal left subclavian artery. PLEURA: There is no pleural fluid or pneumothorax. Pleural reaction on the left likely related to previous surgery. AXILLA/CHEST WALL: There are no enlarged axillary lymph nodes. No chest wall mass demonstrated VISUALIZED UPPER ABDOMEN: Partially visualized fat-containing nodule left adrenal gland likely myelolipoma. Probable small cyst dome of hepatic segment 8. MUSCULOSKELETAL: No suspicious focal bony lesion. Procedure Note Capo Gaytan MD - 08/29/2024 [...] disease demonstrated on 05/22/24 has improved. A event representative peripheral nodular component anteromedial remaining leftupper [...] Signed Date: 08/29/2024 11:52 ET Workstation ID: [id number] Transcribed By: Self Edit Transcribed Date: 08/29/2024 11:29 ET us Charity NAVARRO IMG CT PROCEDURES Final Resul t * Lipid panel with reflex to direct LDL (08/07/2024 9:03 AM EDT) Cholesterol 149 0 - 200 mg/dL LAB CHEMISTRY METHOD 08/07/2024 2:48 PM EDT [facility] Triglycerides 120 0 - 150 mg/dL LAB CHEMISTRY METHOD 08/07/2024 2:48 PM EDT [facility] HDL 70 >=40 mg/dL LAB CHEMISTRY METHOD 08/07/2024 2:48 PM EDT [facility] LDL Calculated 55 0 - 100 mg/dL LAB CHEMISTRY METHOD 08/07/2024 2:48 PM EDT [facility] VLDL Cholesterol Keven 24 mg/dL LAB CHEMISTRY METHOD 08/07/2024 2:48 PM EDT [facility] Non HDL Chol. (LDL+VLDL) 79 <145 mg/dL LAB CHEMISTRY METHOD 08/07/2024 2:48 PM EDT [facility] Chol/HDL Ratio 2.1 0.0 - 4.4 LAB CHEMISTRY METHOD 08/07/2024 2:48 PM EDT [facility] Blood Venous blood specimen / Unknown Venipuncture / Unknown 08/07/2024 9:03 AM EDT 08/07/2024 9:03 AM EDT us Ilene NAVARRO LAB BLOOD ORDERABLES Final Re sult Performing Organization Address [facility]/ZIP Co de Phone Number [facility] [address] [place] [address], [place] [phone] * (ABNORMAL) Microalbumin creatinine urine ratio (08/07/2024 9:03 AM EDT) Creatinine, Urine 84.0 mg/dL LAB CHEMISTRY METHOD 08/07/2024 3:32 PM EDT [facility] Microalb, Ur 5,780.0(H ) 0.0 - 29.0 mg/L LAB CHEMISTRY METHOD 08/07/2024 3:32 PM EDT [facility] Comment:Results verified by repeat testing Microalb/Crea t Ratio 6,881(H) <30 mg/g creat LAB CHEMISTRY METHOD 08/07/2024 3:32 PM EDT [facility] Urine Urine specimen from urethra / Unknown Non-blood Collection / Unknown 08/07/2024 9:03 AM EDT 08/07/2024 9:03 AM EDT us Ilene NAVARRO LAB URINE ORDERABLES Final Re sult Performing Organization Address City/[facility]/ZIP Co de Phone Number [facility] [address] [place] [address], [place] [phone] * Hemoglobin A1c (08/07/2024 9:03 AM EDT) Hemoglobin A1C 5.9 <6.5 % LAB CHEMISTRY METHOD 08/07/2024 2:26 PM EDT [facility] Mean Bld Glu Estim. 123 mg/dL LAB CHEMISTRY METHOD 08/07/2024 2:26 PM EDT [facility] Blood Venous blood specimen / Unknown Venipuncture / Unknown 08/07/2024 9:03 AM EDT 08/07/2024 9:03 AM EDT us Ilene NAVARRO LAB BLOOD ORDERABLES Final Re sult [facility] ([facility]) [facility] [address] [place] [address], * SCR MAMMO BI INCL CAD (08/08/2023 [...] are composed of fatty and fibroglandular tissue. No suspicious mass, architectural distortion or suspicious calcifications [...] risk category Breast cancer risk not assessed us Bibiana Hall MD IMG XR PROCEDURES Final Result * DXA BONE DENSITY STUDY 1+ SITS AXIAL SKEL (08/08/2023 2:40 PM EDT) Anatomical Region Laterality Modality Bone Densitometr y 06/06/2022 8:44 AM EST Narrative 08/08/2023 7:40 PM EDT BONE DENSITY SCAN (DEXA) FINDINGS: Lumbar Spine [...] bone mineral density by WHO criteria. [facility] Department of Internal Medicine recommends using [...] alternative screening schedule based on josephine Presley., NEJM June 02, 2011 for patients with osteopenia [...] bone mineral density by WHO criteria. [facility] Department of Internal Medicine recommendsusing National [...] FRAX. Optional alternative screening schedule based on carolin Presley, [facility] for patients with osteopenia (based on hip BMD T-score) is as follows: * advanced osteopenia (T scores -2.00 to -2.49), BMD testing every year * moderate osteopenia (T scores -1.50 to -1.99), BMD testing every 5years mild osteopenia or normal BMD (T scores -1.50 and higher), BMD testingevery 15 years us Bibiana Hall MD IM DXA PROCEDURES Final Result * CT LUNG SCREENING LOW DOSE (07/28/2023 3:21 PM EDT) Anatomical Region Laterality Modality Computed Tomogra phy 07/28/2023 2:34 PM EDT Narrative 07/28/2023 3:21 PM EDT [facility] Diagnostic Imaging Department [address] [place], [place] [id number] Patient: SUDHEER ANGEL Dixon /Age/Sex: 1950 - 72 - F Unit#: [id number] Location/Status: [facility] CLI Mnemonic/Ordering Site: [facility] Ordering Physician: STEPHANE RILEY MD CT Lung Screening Low Dose - 07/28/23 - 8614 Report Status:Signed Chest CT, 07/28/2023 3:11 PM. TECHNIQUE: Low-dose CT of the chest without intravenous contrast administration. Coronal and sagittal reformats and MIP reconstructions were created. HISTORY: LOW DOSE SCREENING COMPARISON: 07/27/2022. FINDINGS: Lungs/pleura: Normal caliber airways. No endobronchial nodule. Moderate centrilobular emphysema. New 7 x 9 mm left lower lobe nodule, series 3 image 163. Stable irregular 4 mm nodule in the right upper lobe, image 70. Linear bands of scarring or atelectasis in the lingula and inferior right middle lobe. No pleural effusion or pneumothorax. Mediastinum/farhad: Small calcification in the rightward thyroid isthmus. No mass or adenopathy. Vasculature: Upper normal size pulmonary arteries. Extensive atherosclerotic calcifications of the aorta and great vessels. Cardiac: Severe mitral annular and moderate coronary artery calcification. Chest wall: No mass or adenopathy. Limited abdomen: Stable small low-attenuation lesion in the right hepatic lobe, probably a cyst. Bones: Demineralized. Mild degenerative changes of the spine. IMPRESSION: New irregular left lower lobe pulmonary nodule measuring 7 x 9 mm. Lung RADS 4A. This finding should be closely followed. Guidelines recommend 3 month low-dose CT or evaluation with PET. Size of this nodule is borderline for evaluation with PET. Dictating Physician: LEXIE BURNS MD Electronically Signed by: LEXIE BURNS MD Dic Date/Time: 07/28/23 1511 Sign date/Time: 07/28/23 1521 Procedure Note Lexie Burns MD - 01/01/2024 [facility] Diagnostic Imaging Department [address] [place] [address] Patient: SUDHEER ANGEL Dixon /Age/Sex: 1950 72 - Unit#: [id number] Location/Status: [facility]/REG CLI Mnemonic/Ordering Site: [facility] Ordering Physician: STEPHANE RILEY MD CT [...] 1521 Stephane Riley MD IMG CT PROCEDURES Final Result * Colonoscopy (12/28/2022) Colonoscopy no interpretation , abstracted Anatomical Region Laterality Modality Other Historical Provider HEALTH MAINTENANCE Final Result * Hepatitis C Screening (02/04/2019) Hepatitis C Screening abstracted us Historical Provider HEALTH MAINTENANCE Final Result from Last 3 Months or Most Recently Relevant to Health Maintenance Insurance [employer] Care Teams [employer] Relationship Specialty Start Date End Date Bibiana Hall MD [address] [place] [address] PCP - General Internal Medicine 04/27/21
--- OUTSIDE RECORDS SUMMARY | 2024-11-20 07:48 | XMS_ITS | Clinical Summary ---
Author Organization [facility] Address [address] [facility] [address] [place] [address] Phone Care Team Providers Care Nitroglycerin Supervisor Name Role Phone Bibiana Hall MD Primary Care Provider [phone] Allergies Active Allergy Reactions Criticality Noted Date [...] 10/29/2023 Active amLODIPine (NORVASC) 10 MG tablet TAKE 1 TABLET BY MOUTH DAILY 100 tablet 2 10/05/2024 Active Active Problems Problem Noted Date Diagnosed Date History of malignant neoplasm of thoracic cavity structure 05/30/2024 Overview (10/16/2024): 11/2023: Stage 1 SCC s/p LLL lobectomy Stage 3b chronic kidney disease 06/14/2023 Diabetes mellitus, not otherwise specified 06/14 Hypertension 06/14/2023 Proteinuria, not otherwise specified 06/14/2023 Diabetic glomerulonephritis 06/14/2023 Arteriosclerotic vascular disease 06/14/2023 Peripheral arterial occlusive disease 06/14/2023 Carotid artery stenosis 10/03/2018 Overview (10/16/2024): Follows with vascular s/p left carotid endarterectomy 03/2019 50-69% Left stenosis; 50% right Ex-tobacco user 07/20/2018 Overview (08/09/2023): Quit 03/03/2017 H/O: atrial fibrillation 07/09/2018 Overview (08/09/2023): In setting of hypovolemic shock/Code Blue. Beta blockers. NO anticoagulation Mitral valve annular calcification 07/09/2018 Overview (08/09/2023): Moderate. Mild Aortic valve calcification. ECHO 01/30/17. EF > 70 % Chronic obstructive pulmonary disease 06/13/2018 Encounters Date Type Department Care Team Description 11/06/2024 Office Communication [facility] [address] [phone] Niki Gamboa 11/01/2024 Orders Only [facility] [address] [phone] Chepe West MD 10/24/2024 Office Communication [facility] [address] [phone] Niki Gamboa 10/24/2024 Telephone [facility] [address] [phone] Niki Gamboa 10/17/2024 9:00 AM EDT Office Visit [facility] [address] [place] [phone] Chepe West MD Stage 3b chronic kidney disease (HCC) (Primary Dx); Proteinuria, not otherwise specified; Peripheral arterial occlusive disease (HCC); Hypertension; Diabetic glomerulonephritis (HCC); Diabetes mellitus, not otherwise specified (HCC); Arteriosclerotic vascular disease 10/16/2024 Orders Only [facility] [address] [place] [phone] Chepe West MD Stage 3b chronic kidney disease (HCC); Proteinuria, not otherwise specified; Peripheral arterial occlusive disease (HCC); Diabetic glomerulonephritis (HCC); H/O: atrial fibrillation; Hypertension 10/11/2024 Orders Only [facility] [address] [phone] Chepe West MD 10/04/2024 Refill [facility] [place] [address] [facility] [address] [place] [phone] Chepe West MD from Last 3 Months Family History Relation [...] Sign Reading Time Taken Comments Blood Pressure 100/60 10/17/2024 9:12 AM EDT Pulse 57 10/17/2024 9:12 AM EDT Temperature - - Respiratory Rate - - Oxygen Saturation 97% 04/17/2024 11:44 AM EST Inhaled Oxygen Concentration - - Weight 87.1 kg (192 lb) 10/17/2024 9:12 AM EDT Height 166.4 cm (5' 5.5 ) 04/17/2024 11:44 AM ES T Body Mass Index 31.46 04/17/2024 11:44 AM EST Plan of Treatment Upcoming Encounters Date Type Department Care Team (Latest Contact Info) Description 12/17/2024 Orders Only [facility] [address] [place] [phone] Chepe West MD [address] [phone] Stage 3b chronic kidney disease (HCC); Proteinuria, not otherwise specified; Peripheral arterial occlusive disease (HCC); Hypertension; Diabetic glomerulonephritis (HCC); Diabetes mellitus, not otherwise specified (HCC); Arteriosclerotic vascular disease 12/18/2024 9:00 AM EDT Office Visit [facility] [address] [phone] Chepe West MD [address] [phone] Health Maintenance Due Date Last Done Comments Breast Cancer Screening 1950 Colorectal Cancer Screening: Annual FOBT 1998 Colorectal Cancer Screening: Colonoscopy 1998 Colorectal Cancer Screening: Sigmoidoscopy 1998 Diabetes: Ophthalmology Exam 06/14/2023 Diabetes: Pedal Pulse Checked 06/14/2023 Diabetes: Sensory Foot Exam 06/14/2023 Diabetes: Visual Foot Exam 06/14/2023 Diabetes: Hemoglobin A1C 11/07/202408/07/2 025, 01/24/2024, 09/04/2023, Additional history exists Influenza Vaccine (#1) 2025 4, 01/24/2024, 01/24/2024, Additional history exists Pneumococcal Vaccine: 50+ Years Completed 11/11/2021, 02/04/2019 Hepatitis B Vaccine Aged Out No longe r eligible based on patient's age to complete this topic Procedures Procedure Name Priority Date/Time Associated Diagnosis Comments HEMOGLOBIN AND HEMATOCRIT, BLOOD Routine 11/01/2024 2:25 PM EDT PROTIME-INR Routine 11/01/2024 10:22 AM EDT CBC WITH AUTO DIFFERENTIAL Routine 10/11/2024 9:04 AM EDT PROTEIN / CREATININE RATIO, URINE Routine 10/11/2024 9:04 AM EDT Stage 3b chronic kidney disease (HCC) Proteinuria, not otherwise specified Peripheral arterial occlusive disease (HCC) Diabetic glomerulonephritis (HCC) H/O: atrial fibrillation Hypertension VITAMIN D 25 HYDROXY Routine 10/11/2024 9:04 AM EDT Stage 3b chronic kidney disease (HCC) Proteinuria, not otherwise specified Peripheral arterial occlusive disease (HCC) Diabetic glomerulonephritis (HCC) H/O: atrial fibrillation Hypertension PTH, INTACT Routine 10/11/2024 9:04 AM EDT Stage 3b chronic kidney disease (HCC) Proteinuria, not otherwise specified Peripheral arterial occlusive disease (HCC) Diabetic glomerulonephritis (HCC) H/O: atrial fibrillation Hypertension PHOSPHATE ( PHOSPHORUS) Routine 10/11/2024 9:04 AM EDT Stage 3b chronic kidney disease (HCC) Proteinuria, not otherwise specified Peripheral arterial occlusive disease (HCC) Diabetic glomerulonephritis (HCC) H/O: atrial fibrillation Hypertension MAGNESIUM Routine 10/11/2024 9:04 AM EDT Stage 3b chronic kidney disease (HCC) Proteinuria, not otherwise specified Peripheral arterial occlusive disease (HCC) Diabetic glomerulonephritis (HCC) H/O: atrial fibrillation Hypertension URIC ACID Routine 10/11/2024 9:04 AM EDT Stage 3b chronic kidney disease (HCC) Proteinuria, not otherwise specified Peripheral arterial occlusive disease (HCC) Diabetic glomerulonephritis (HCC) H/O: atrial fibrillation Hypertension COMPREHENSIVE METABOLIC PANEL Routine 10/11/2024 9:04 AM EDT Stage 3b chronic kidney disease (HCC) Proteinuria, not otherwise specified Peripheral arterial occlusive disease (HCC) Diabetic glomerulonephritis (HCC) H/O: atrial fibrillation Hypertension EXT RESULT ENTRY Routine 10/20/2022 from Last 3 Months or Most Recently Relevant to Health Maintenance Results * Hemoglobin and hematocrit (11/01/2024 2:25 PM EDT) Hgb 13.3 11.5 - 16.0 g/dL [facility] Hematocrit 41.3 35.0 - 47.0 % [facility] 11/01/2024 2:25 PM EDT 11/01/2024 2:47 PM EDT Chepe West MD LAB BLOOD ORDERABLES Final Re sult Performing Organization Address [facility]/ZIP Co de Phone Number [facility] [address] [place] [address] * Protime-INR (11/01/2024 10:22 AM EDT) [facility] Protime 11.8 10.6 - 13.9 sec [facility] INR 0.9 [facility] 11/01/2024 10:2 2 AM EDT 11/01/2024 10:22 AM EDT Chepe West MD LAB BLOOD ORDERABLES Final Re sult Performing Organization Address City/[facility]/ZIP Co de Phone Number [facility] [address] [place] [address] * (ABNORMAL) CBC auto differential (10/11/2024 9:04 AM EDT) WBC 7.0 4.8 - 10.8 K/[facility] RBC 4.40 3.80 - 4.80 M/[facility] Hgb 13.1 11.5 - 16.0 g/dL [facility] Hematocrit 40.1 35.0 - 47.0 % [facility] MCV 92.2 79.0 - 98.0 FL [facility] MCH 30.1 27.0 - 32.0 pcg [facility] MCHC 32.7 32.0 - 37.0 g/dL [facility] RDW 14.4 11.0 - 15.0 % [facility] Platelets 232 130 - 400 K/[facility] MPV 11.3(H) 7.0 - 11.0 FL [facility] nRBC Count 0.0 <1.0 % [facility] NRBC Absolute 0.00 <0.10 [facility] Bands Relative 57.3 % [facility] Lymphocyte Realative Percent 27.4 % [facility] Monocyte Relative Percent 10.4 % [facility] Eosinophil Relative Percent 4.0 % [facility] Basophils Relative Diff 0.6 % [facility] Immature Granulocytes 0.3 % [facility] Neutrophils Absolute 4.04 1.50 - 7.00 [facility] Lymphocytes Absolute 1.93 1.00 - 5.00 [facility] Monocytes Absolute 0.73 0.20 - 1.00 [facility] Eosinophil Absolute 0.28 0.00 - 0.50 [facility] Basophil ABS 0.04 0.00 - 0.20 [facility] Immature Grans (Absolute) 0.02 0.00 - 0.03 [facility] 10/11/2024 9:04 AM EDT 10/11/2024 9:31 AM EDT us Chepe West MD LAB BLOOD ORDERABLES Final Re sult Performing Organization Address [facility] Co de Phone Number [facility] [address] [place] [address] * (ABNORMAL) Protein, Total, Random Urine w/Creatinine (Protein/Creat Ratio) (10/11/2024 9:04 AM EDT) Protein, Ur 189 mg/dL [facility] Urine Protein/Creati nine Ratio 6.30(H) <=0.20 mg/mg creat [facility] Creatinine, Urine 30.0 mg/dL [facility] Urine specimen (specimen) Urine specimen obtained by clean catch procedure / Unknown 10/11/2024 9:04 AM EDT 10/11/2024 9:34 AM EDT us Chepe West MD LAB URINE ORDERABLES Final Re sult Performing Organization Address [facility] Co de Phone Number [facility] [address] [place] [address] * Vitamin D 25 Hydroxy (10/11/2024 9:04 AM EDT) Vitamin D, 25-OH, Total 36.1 30.0 - 80.0 ng/mL [facility] Blood specimen (specimen) Venous blood / Unknown 10/11/2024 9:04 AM EDT 10/11/2024 9:33 AM EDT us Chepe West MD LAB BLOOD ORDERABLES Final Re sult Performing Organization Address City/[facility]/ZIP Co de Phone Number [facility] [address] [place] [address] * Uric Acid (10/11/2024 9:04 AM EDT) Uric Acid 6.4 3.1 - 7.8 mg/dL [facility] Blood specimen (specimen) Venous blood / Unknown 10/11/2024 9:04 AM EDT 10/11/2024 9:33 AM EDT us Chepe West MD LAB BLOOD ORDERABLES Final Re sult Performing Organization Address [facility]/ZIP Co de Phone Number [facility] [address] [place] [address] * Phosphorus (10/11/2024 9:04 AM EDT) [facility] Phosphorus 4.0 2.5 - 4.5 mg/dL [facility] Blood specimen (specimen) Venous blood / Unknown 10/11/2024 9:04 AM EDT 10/11/2024 9:33 AM EDT us Chepe West MD LAB BLOOD ORDERABLES Final Re sult Performing Organization Address [facility] Co de Phone Number [facility] [address] [place] [address] * PTH, Intact (10/11/2024 9:04 AM EDT) Pathologist [facility] PTH 43.2 18.5 - 88.0 pcg/mL [facility] Blood specimen (specimen) Venous blood / Unknown 10/11/2024 9:04 AM EDT 10/11/2024 9:33 AM EDT us Chepe West MD LAB BLOOD ORDERABLES Final Re sult Performing Organization Address [facility] de Phone Number [facility] [address] [place] [address] * Magnesium (10/11/2024 9:04 AM EDT) Pathologist [facility] Magnesium 2.6 1.9 - 2.6 mg/dL [facility] Blood specimen (specimen) Venous blood / Unknown 10/11/2024 9:04 AM EDT 10/11/2024 9:33 AM EDT us Chepe West MD LAB BLOOD ORDERABLES Final Re sult [facility] [address] [place] [address] * (ABNORMAL) Comprehensive Metabolic Panel (10/11/2024 9:04 AM EDT) Sodium 140 133 - 145 mmol/L [facility] Potassium 4.6 3.5 - 5.5 mmol/L [facility] Chloride 109 96 - 110 mmol/L [facility] Bicarbonate (CO2) 26 21 - 32 mmol/L [facility] Anion Gap 5 3 - 11 [facility] Glucose 127(H) 70 - 100 mg/dL [facility] BUN 34(H) 5 - 25 mg/dL [facility] Creatinine Serum 1.99(H) 0.50 - 1.10 mg/dL [facility] eGFR 26(L) >=60 mL/min/1. 73m2 [facility] Comment:Calculation based on the Chronic Kidney Disease Epidemiology Collaboration (CKD-EPI) equation refit without adjustment for race. BUN/Creatinine Ratio 17.1 [facility] Calcium 9.8 8.5 - 10.5 mg/dL [facility] AST (SGOT) 13 10 - 42 unit/L [facility] ALT (SGPT) 18 10 - 60 unit/L [facility] Alkaline Phosphatase 61 42 - 121 unit/L [facility] Total Protein 7.4 6.0 - 8.0 g/dL [facility] Albumin 3.5 3.2 - 5.0 g/dL [facility] Total Bilirubin 1.0 0.0 - 1.4 mg/dL [facility] Blood specimen (specimen) Venous blood / Unknown 10/11/2024 9:04 AM EDT 10/11/2024 9:33 AM EDT Chepe West MD LAB BLOOD ORDERABLES Final Re sult [facility] [address] [place] [address] * (ABNORMAL) EXT RESULT ENTRY (10/20/2022) Sodium 141 137 - 147 Potassium 4.1 3.4 - 5.5 Chloride 107.0 99.0 - 108.0 Carbon Dioxide 29 mmol/L Anion Gap 5 <=30 MMOL/L Glucose 131 60 - 200 BUN 18 4 - 21 mg/dL Creatinine 1.12(A) 0.50 - 1.10 mg/dL Calcium 10.2 8.7 - 10.7 mg/dL eGFR Non-Afr [place] 52 Hemoglobin A1C 5.8 4.0 - 6.0 10/20/2022 Historical Provider LAB BLOOD ORDERABLES Diana l Result from Last 3 Months or Most Recently Relevant to Health Maintenance Insurance [address] [place] [id number] [facility] Medicare [facility] Medicare Care Teams Nitroglycerin Supervisor Relationship Specialty Start Date End Date Bibiana Hall MD [address] [place] [phone] PCP - General Internal Medicine 04/17/24
--- NOTE | 2024-11-20 07:49 | CA_ITS ---
Transthoracic Echocardiogram Patient (Last, First, Middle): Leslie Angel, Gender: Female Date of : 1950 Age: 74 Procedure Date: 11/20/2024 Procedure Type: Transthoracic Echocardiogram Location: OP Height: 165.1 cm Weight: 85.28 kg BSA: 1.93 m2 Heart Rate: bpm BP: 102 / 60 mmHg Mapping Engineer: TO Referring MD: David Christensen MD Dry Wall Plasterer: Mirza Banda MD Symptoms: I25.10 - Atherosclerotic heart disease of [place] coronary artery without... Study Quality: Adequate w contrast ECG Rhythm: Sinus Conclusions: - 1. Hyperdynamic LV ejection fraction greater than 70% with mild obstructive physiology at LV outflow track without any dynamic component with pseudonormal filling pattern 2. Severely dilated left atrium on this study 3. Severe mitral calcification with mild mitral regurgitation 4. Upper limits of normal ascending aortic size 5. No gross pericardial effusion Findings Procedure Information Contrast agent, definity, is being given per protocol without apparent complications. Left Ventricle Normal left ventricular cavity size. There is normal left ventricular wall thickness. The left ventricular systolic function is hyperdynamic. The visually estimated ejection fraction is >70%. There is dynamic left ventricular outflow tract obstruction. Spectral Doppler is indicative of a pseudonormal filling pattern. There is mild septal asymmetric hypertrophy. mild obstructive physiology noted at LV outflow tract without clear dynamic component Right Ventricle Normal right ventricular cavity size and systolic function. Atria The left atrium is severely dilated. Interatrial shunt cannot be excluded. The right atrium is likely dilated. Aortic Valve The aortic valve was not well visualized. There is mild calcification of the aortic valve. There is no aortic valve stenosis. There is no aortic valve regurgitation. Mitral Valve There is mild anterior and severe posterior mitral leaflet thickening. There is severe mitral annular calcification. There is mild mitral valve regurgitation. There is no mitral valve stenosis. Pulmonic Valve The pulmonic valve was not well visualized. Tricuspid Valve Likely normal tricuspid valve structure and function. Tricuspid regurgitation envelope is inadequate for calculation of right ventricular systolic pressure. Normal right atrial pressure. Great Vessels The pulmonary artery was not well visualized. There is no dilatation of the ascending aorta measuring 3.60 cm. Small plaque is seen in the sino tubular ridge. Venous The inferior vena cava is normal in size and collapses greater than 50% with inspiration. Pericardium/Pleural There is no evidence of pericardial effusion. Measurements 2D Linear Measurements IVSd: 1.37 0.6-0.9/0.6-1.0 cm LVIDd: 4.84 3.9-5.3/4.2-5.9 cm LVIDd Index: 2.51 2.4-3.2/2.2-3.1 cm/m2 LVIDs: 2.84 2.0-3.6 cm LVPWd: 0.82 0.7-1.1 cm LA Diam: 5.80 2.7-3.8/3.0-4.0 cm LAIDs Index: 3.01 1.5-2.3 cm/m2 LV Mass: 242.64 67-162/88-224 g LV Mass Index: 125.72 43-95/49-115 g/m2 LVOT Diam: 2.30 3.0+(-)1.3 cm 2D Systolic Function EF 4C: 68.70 >55% EF 2C: 77.00 >55% EF BiP: 72.60 >55% Mitral Valve MV VTI: 0.62 MV Pk [place]: 1.56 MV Mn [place]: 0.77 MV Pk Grad: 10.00 MV Mn Grad: 3.00 MV Pk E: 1.22 MV PK A: 1.37 MV Decel Time: 403.00 E/A: 0.90 E'Lateral: 4.46 E'Medial: 3.37 E/E' Med: 36.20 E/E' Lat: 27.40 PHT: 118.00 MVA PHT: 1.86 MVA Continuity: 2.85 Decel [place]: 3.03 Aortic Valve AoV Pk [place]: 1.64 AoV Mn [place]: 1.22 AoV VTI: 0.45 AoV Pk Grad: 11.00 Aov Mn Grad: 7.00 CIARAN Cont.VTI: 3.97 LVOT LVOT Pk [place]: 1.45 LVOT Mn [place]: 1.07 LVOT VTI: 0.43 LVOT Pk Grad: 8.00 LVOT Mn Grad: 5.00 LVOT Diam: 2.30 LVOT Area: 4.15 Diastolic Function MV Pk E: 1.22 MV Pk A: 1.37 E/A: 0.90 E'Medial: 3.37 E/E' Med: 36.20 E' Laterial: 4.46 E/E' Lat: 27.40 Right Ventricle TAPSE (mm): 21.70 TVS' [place]: 14.40 Tricuspid Valve RA Press: 15.00 Great Vessels Aorta Sinus of Valsalva: 3.37 2.0-3.[address] [place]: 2.82 1.7-3.4 cm Ao Asc: 3.60 2.1-3.4 cm Updated in Other Vendor System with Status of Final Mirza Banda MD electronically signed on 11/21/2024 12:33:18 PM with status of Final
== END ==
LOC: HO.CARD 07:46
PROVIDERS: PCP Internal Medicine; Visit Provider Internal Medicine
DX: I25.10 Atherosclerotic heart disease of native coronary artery without angina pectoris (principal)
CPT/HCPCS: 93306; Q9957

== ENCOUNTER → 2024-11-20 07:49 | Outpatient (BNV) | payer MEDICARE, SELFPAY | PROVIDERS: PCP Internal Medicine; Visit Provider Internal Medicine Cardiovascular Disease | DX: I42.1 Obstructive hypertrophic cardiomyopathy (principal); I51.7 Cardiomegaly; I34.81 Nonrheumatic mitral (valve) annulus calcification; I34.0 Nonrheumatic mitral (valve) insufficiency; I35.8 Other nonrheumatic aortic valve disorders | CPT/HCPCS: 93306 ==

== ENCOUNTER 2024-12-04 08:02 | Outpatient (AMB) | payer MEDICARE, SELFPAY ==
--- OUTSIDE RECORDS SUMMARY | 2024-12-04 08:06 | XMS_ITS | Clinical Summary ---
Author Organization 300 [facility] Address [address] [place] [address] Phone Care Team Providers Care Service Order Dispatcher Name Role Phone Bibiana Hall MD Primary Care Provider [phone] Allergies Active Allergy Reactions Criticality Noted Date [...] in the coming weeks. She does have [place] [employer] and will contact her insurance about a continuation of care letter once we give her the CPT's. Urinary incontinence 08/11/2023 Tubular adenoma 01/19/2023 Overview (04/03/2024): 01/04 tubular adenomas, 2 high grade CKD (chronic kidney disease) stage 3, GFR 30-59 ml/min ([facility] V24, CMS/HCC V28) 11/11/2021 Type 2 diabetes mellitus wit h renal complication ([facility]/HCC V24, CMS/HCC V28) 11/11/2021 Type 2 diabetes mellitus wit h vascular disease ([facility]/HCC V24, CMS/HCC V28) 11/11/2021 Iliac artery stenosis, bilateral ([facility]/HCC V24) 0 01/08/2020 Overview (04/03/2024): Noted on arterial duplex; 01/01 Following with vascular Subclavian artery stenosis ([facility]/HCC V24) 020 Overview (04/03/2024): Pending cta [...] () Had negative nuclear stress test with [place] [facility] January 2021 COPD (chronic obstructive pu lmonary disease) ([facility] V24, [facility] V28) 06/13/2018 Gallstones 06/13/2018 Hyperlipidemia 06/13/2018 Hypertension 06/13/2018 Microalbuminuria 06/13/2018 Peripheral artery disease ([facility] V24) 06/13/19 19 Overview (04/03/2024): 2017 Left Iliac Artery stent. Perioperative extravasation Leading to massive blood loss/hypovolemic shock and Code Blue. Massive transfusions. S/p retroperitoneal bleed Resolved Problems Problem Noted Date Diagnosed Date Resolved Date Lung cancer ([facility] V24, [facility] V28) 12/11/2023 05/30/2024 Overview (04/03/2024): [...] she also requested to be referred to [facility] with Dr. Pat. She was informed [...] - 11/01/2024 11:59 PM EDT Hospital Encounter [facility] Interventional Radiology [address] [place] [address] Chronic kidney disease, stage 3b (CMS/HCC V24, CMS/HCC V28); Proteinuria, unspecified; Disorder of arteries and arterioles, unspecified (CMS/HCC V24); Essential (primary) hypertension; Type 2 diabetes mellitus with diabetic nephropathy (CMS/HCC V24, CMS/HCC V28); Type 2 diabetes mellitus without complications (CMS/HCC V24, CMS/HCC V28); Unspecified atherosclerosis Discharge Disposition: Home or Self Care 10/17/2024 Telephone Vascular Surgery - [place] [address] [facility] [address] [place] [address] Lyle Carpenter MD 09/09/2024 10:30 AM EDT Office Visit Thoracic Surgery [facility] 299 [facility] [address] [place] [address] Peyton Felix NP History of lung cancer (Primary Dx) from Last 3 Months Immunizations Name Administration [...] ARM/LEG ARTERY OTHER SURGICAL HISTORY 08/01/2023 PROCEDURE: AZ VASCULAR EMBOLIZATION OR OCCLUSION VENOUS RS&I OTHER SURGICAL HISTORY 08/01/2023 PROCEDURE: AZ VASCULAR EMBOLIZATION OR OCCLUSION ARTERIAL RS&I; COMMENT: x2 OTHER SURGICAL HISTORY 08/01/2023 PROCEDURE: ULTRASOUND GUIDANCE FOR VASCULAR AC; COMMENT: x2 OTHER SURGICAL HISTORY 08/01/2023 PROCEDURE: AZ REVASC INTRAVASC LITHOTRIPSY; COMMENT: Aorta OTHER SURGICAL HISTORY 08/01/2023 Left PROCEDURE: AZ REVASC INTRA LITHOTRIP-STENT; COMMENT: left AYLIN OTHER SURGICAL HISTORY 08/01/2023 Left PROCEDURE: AZ REVASC INTRA LITHOTRIP-STENT; COMMENT: left, EIA OTHER SURGICAL HISTORY 11/28/2023 Left PROCEDURE: AZ THORACOSCOPY W/LOBECTOMY SINGLE LOBE; COMMENT: LLL lobectomy Medical History Medical History Date Comments Hypertension 06/13/2018 DX:Hypertension Hyperlipidemia 06/13/2018 DX:Hyperlipidemi a COPD (chronic obstructive pu lmonary disease) ([facility]/HCC V24, CMS/HCC V28) 06/13/2018 DX:COPD (chronic o bstructive pulmonary disease) ([facility]) Gallstones 06/13/2018 DX:Gallstones Proteinuria 06/13/2018 [...] ECHO 01/30/17. EF > 70 % Old RI (myocardial infarction) 06/13/2018 D X:Old RI (myocardial infarction); COMMENT: 2016 significant Troponin leak suggestive of NSTEMI ; participated in Phase II cardiac rehab () Peripheral artery disease (C ND/HCC V24) 06/13/2018 DX:Peripheral artery disease (HCC); COMMENT: 2017 Left Iliac Artery stent. Perioperative [...] for your loved ones. For example, child welfare caseworker or elderly care for an older adult? [...] 9:30 AM EDT Office Visit Adult Medicine [facility] [address] [place] [address] Bibiana Hall MD [address] [place] [address] 07/02/2025 10:00 AM EST Ancillary Procedure [facility] - [facility] [address] [place] [address] 07/03/2025 10:00 AM EST Ancillary Procedure [facility] - [facility] [address] [place] [address] 08/29/2025 9:30 AM EDT Office Visit Vascular Surgery - [place] [address] [place] [address] Rosario Tompkins PA [address] [place] [address] Health Maintenance Due Date Last Done Comments Diabetes: Annual Foot Exam 11/08/1959 Diabetes: Annual Retina Eye Exam 11/08/1959 Zoster Vaccines (1 of 2) 1968 COVID-19 Vaccine (5 - Mixed Product risk season) 2024 06/24/2024, 03/09/2021, 08/14/2020, Additional history exists Influenza Vaccine (#1) 2025 , 01/19/2023, 01/19/2023, Additional history exists Diabetes: Blood Sugar Control Test (HGBA1C) 02/07/2025 08/07/2024, 01/24/2024, 01/24/2024 Social Influencers of Health Screening 07/26/2025 07/26/2024 [...] history exists Breast Cancer Screening Discontinued 08/08/2023 Depression Screening Completed 07/26/2024 HIB Vaccines Aged Out No longer eligi [...] this topic Medical Devices Implanted Type Area Lime Burner Device Identifier Shelf Expiration Date Model / Serial / Lot Sponge Surgifoam Gel 12 X 7mm - [id number] Implanted:Qty: 1 on 11/01/2024 by Lisa Gao MD at [facility] Hemostasis Right: Flank [employer] 04/09/2028 1972 / [id number] Sponge Surgifoam Gel 12 X 7mm - [id number] Implanted:Qty: 1 on 11/01/2024 by Lisa Gao MD at [facility] Hemostasis Right: Flank [employer] 04/12/2028 1972 [id number] Procedures Procedure Name Priority Date/Time Associated Diagnosis [...] square meter and albuminuria creatinine ratio les* ([facility] V24, [facility] V28) Disease of artery ([facility] V24) Diabetic kidney ([facility] V24, [facility] V28) Personal history of cardiovascular disorder VITAMIN D 25 HYDROXY Routine 10/11/2024 9:04 AM EDT Chronic kidney disease (CKD) stage G3b/A1, moderately decreased glomerular filtration rate (GFR) between 30-44 mL/min/1.73 square meter and albuminuria creatinine ratio les* ([facility] V24, [facility] V28) Disease of artery ([facility] V24) Diabetic kidney ([facility] V24, [facility] V28) Personal history of cardiovascular disorder CBC AND DIFFERENTIAL Routine 10/11/2024 9:04 AM EDT Chronic kidney disease (CKD) stage G3b/A1, moderately decreased glomerular filtration rate (GFR) between 30-44 mL/min/1.73 square meter and albuminuria creatinine ratio les* ([facility] V24, [facility] V28) Disease of artery ([facility] V24) Diabetic kidney ([facility] V24, [facility] V28) Personal history of cardiovascular disorder PROTEIN AND CREATININE WITH RATIO, URINE Routine 10/11/2024 9:04 AM EDT Chronic kidney disease (CKD) stage G3b/A1, moderately decreased glomerular filtration rate (GFR) between 30-44 mL/min/1.73 square meter and albuminuria creatinine ratio les* ([facility] V24, [facility] V28) Disease of artery ([facility] V24) Diabetic kidney ([facility] V24, [facility] V28) Personal history of cardiovascular disorder MICROALBUMIN CREATININE URINE RATIO Routine 08/07/2024 9:03 [...] PM EDT Personal history of nicotine dependence COLONOSCOPY Routine 12/28/2022 HEPATITIS C SCREENING Routine 02/04/2019 from Last 3 Months or Most Recently Relevant to Health Maintenance Results * Hemoglobin and hematocrit (11/01/2024 2:25 PM EDT) Hemoglobin 13.3 11.5 - 16.0 g/dL LAB HEMETOLOGY METHOD 11/01/2024 2:56 PM EDT [facility] Hematocrit 41.3 35.0 - 47.0 % LAB HEMETOLOGY METHOD 11/01/2024 2:56 PM EDT [facility] Blood Venous blood specimen / Unknown Venipuncture / Unknown 11/01/2024 2:25 PM EDT 11/01/2024 2:47 PM EDT Lisa Gao MD LAB BLOOD ORDERABLES Final Resu lt [facility] [address] [place] [address], [place] [phone] * IR Bx Ndl Renal Perc Right [...] Signed Date: 11/01/2024 13:19 ET Workstation ID: [id number] Transcribed By: Self Edit Transcribed Date: 11/01/2024 [...] of fentanyl administered during the procedure. Scanner: [facility] [address] Dose reduction technique: AEC [...] of fentanyl administered during the procedure. Scanner: [facility] [address] Dose reduction technique: AEC [...] Signed Date: 11/01/2024 13:19 ET Workstation ID: [id number] Transcribed By: Self Edit Transcribed Date: 11/01/2024 12:34 ET us Chepe West MD IMG IR PROCEDURES Final Res ult * AP Kidney biopsy (11/01/2024 11:49 AM EDT) Scan Result See Scanned Result 11/11/2024 3:46 PM EDT EXTERNAL LAB (NON-INTERFAC ED) Tissue Right kidney structure / Unknown 11/01/2024 11:49 AM EDT 11/01/2024 12:23 PM EDT us Lisa Gao MD LAB PATHOLOGY ORDERABLES Final Result EXTERNAL LAB (NON-INTERFACED) * Tissue exam (11/01/2024 11:49 AM EDT) Addendum This case was sent to [facility], Department of Pathology, [place], [place] (CLIA: [id number]). Their diagnosis is summarized as follows: Pathologic [...] report for full kidney biopsy diagnosis from [facility], [place], [place]) 11/11/2024 12:43 PM EDT [facility] Addendum electronically signed by Nick Onofre MD on 11/11/2024 at 12:43 PM Final Diagnosis Right kidney biopsies for light, immunofluorescence and electron microscopy: -Submitted in toto to [facility]. See adendum report 11/11/2024 12:43 PM T [facility] Gross Description A. Kidney, Right, : Labeled kidney R . Received fresh in saline are 3 morales-pink soft tissue cores, ranging from 1.1 x 0.1 cm to 1.8 x 0.1 cm, which are transfered to formalin for light microscopy, Gee fixative for Immunofluorescence, and Glutaraldehyde for electron microscopy. The specimen is entirely submitted to [facility] for analysis. DEJA 11/11/2024 12:43 PM [facility] Disclaimer Unless otherwise specified, all tissue is 10% NB formalin fixed and paraffin embedded. 11/11/2024 12:43 PM [facility]) [facility] Tissue Right kidney structure / Unknown 11/01/2024 11:49 AM EDT 11/01/2024 12:21 PM EDT us Lisa Gao MD LAB PATHOLOGY ORDERABLES Edited Result - Final Performing Organization Address City/[facility]/ZIP Co de Phone Number [facility] [address] [place] [address], [place] [phone] * Prothrombin time with INR (11/01/2024 10:22 AM EDT) [facility] Protime 11.8 10.6 - 13.9 sec LAB COAGULATION METHOD 11/01/2024 10:34 AM EDT [facility] INR 0.9 LAB COAGULATION METHOD 11/01/2024 10:34 AM EDT [facility] Blood Venous blood specimen / Unknown 11/01/2024 10:22 AM EDT 11/01/2024 10:22 AM EDT Lisa Gao MD LAB BLOOD ORDERABLES Final Resu lt Performing Organization Address [facility]/ZIP Co de Phone Number [facility] [address] [place] [address], [place] [phone] * (ABNORMAL) POCT venous basic metabolic profile, HH (11/01/2024 9:59 AM EDT) [facility] Glucose Venous POCT 110(H) 70 - 100 mg/dL 11/01/2024 10:26 AM EDT [facility] Sodium Venous POCT 142 135 - 145 mmol/L 11/01/2024 10:26 AM EDT [facility] Potassium Venous POCT 3.8 3.5 - 5.5 mmol/L 11/01/2024 10:26 AM EDT [facility] Chloride Venous POCT 106 96 - 110 mmol/L 11/01/2024 10:26 AM EDT [facility] TCO2 Venous POCT 26 21 - 32 mmol/L 11/01/2024 10:26 AM EDT [facility] BUN Venous POCT 32(H) 5 - 25 mg/dL 11/01/2024 10:26 AM T [facility] Creatinine Venous POCT 1.4(H) 0.5 - 1.1 mg/dL 11/01/2024 10:26 AM EDT [facility] Ionized Calcium Venous POCT 5.20 4.50 - 5.30 mg/dL 11/01/2024 10:26 AM EDT [facility] Hemoglobin Venous POCT 14.6 11.5 - 16.0 g/dL 11/01/2024 10:26 AM T [facility] Hematocrit Venous POCT 43 35 - 47 % 11/01/2024 10:26 AM T [facility] Blood Venous blood specimen / Unknown 11/01/2024 9:59 AM EDT 11/01/2024 10:27 AM EDT us Generic Provider Poct LAB POINT OF CARE TEST DOCKED DEVICE UNSOLICITED RESULTS Final Result [facility] [address] [place] [address], * (ABNORMAL) CBC auto differential (10/11/2024 9:04 AM EDT) WBC 7.0 4.8 - 10.8 K/mcL LAB HEMETOLOGY METHOD 10/11/2024 9:45 AM EDT [facility] RBC 4.40 3.80 - 4.80 M/mcL LAB HEMETOLOGY METHOD 10/11/2024 9:45 AM [facility] Hemoglobin 13.1 11.5 - 16.0 g/dL LAB HEMETOLOGY METHOD 10/11/2024 9:45 AM T [facility] Hematocrit 40.1 35.0 - 47.0 % LAB HEMETOLOGY METHOD 10/11/2024 9:45 AM [facility] MCV 92.2 79.0 - 98.0 FL LAB HEMETOLOGY METHOD 10/11/2024 9:45 AM [facility] MCH 30.1 27.0 - 32.0 pcg LAB HEMETOLOGY METHOD 10/11/2024 9:45 AM [facility] MCHC 32.7 32.0 - 37.0 g/dL LAB HEMETOLOGY METHOD 10/11/2024 9:45 AM [facility] RDW 14.4 11.0 - 15.0 % LAB HEMETOLOGY METHOD 10/11/2024 9:45 AM [facility] Platelets 232 130 - 400 K/mcL LAB HEMETOLOGY METHOD 10/11/2024 9:45 AM [facility] MPV 11.3(H) 7.0 - 11.0 FL LAB HEMETOLOGY METHOD 10/11/2024 9:45 AM [facility] NRBC 0.0 <1.0 % LAB HEMETOLOGY METHOD 10/11/2024 9:45 AM [facility] NRBC Absolute 0.00 <0.10 K/mcL LAB HEMETOLOGY METHOD 10/11/2024 9:45 AM [facility] Neutrophils Relative 57.3 % LAB HEMETOLOGY METHOD 10/11/2024 9:45 AM [facility] Lymphocytes Relative 27.4 % LAB HEMETOLOGY METHOD 10/11/2024 9:45 AM [facility] Monocytes Relative 10.4 % LAB HEMETOLOGY METHOD 10/11/2024 9:45 AM [facility] Eosinophils Relative 4.0 % LAB HEMETOLOGY METHOD 10/11/2024 9:45 AM EDT [facility] Basophils Relative 0.6 % LAB HEMETOLOGY METHOD 10/11/2024 9:45 AM [facility] Immature Granulocytes Relative 0.3 % LAB HEMETOLOGY METHOD 10/11/2024 9:45 AM EDT [facility] Neutrophils Absolute 4.04 1.50 - 7.00 K/mcL LAB HEMETOLOGY METHOD 10/11/2024 9:45 AM EDT [facility] Lymphocytes Absolute 1.93 1.00 - 5.00 K/mcL LAB HEMETOLOGY METHOD 10/11/2024 9:45 AM [facility] Monocytes Absolute 0.73 0.20 - 1.00 K/mcL LAB HEMETOLOGY METHOD 10/11/2024 9:45 AM EDT [facility] Eosinophils Absolute 0.28 0.00 - 0.50 K/mcL LAB HEMETOLOGY METHOD 10/11/2024 9:45 AM EDT [facility] Basophils Absolute 0.04 0.00 - 0.20 K/mcL LAB HEMETOLOGY METHOD 10/11/2024 9:45 AM [facility] Immature Granulocytes Absolute 0.02 0.00 - 0.03 K/mcL LAB HEMETOLOGY METHOD 10/11/2024 9:45 AM EDT [facility] Blood Venous blood specimen / Unknown Venipuncture / Unknown 10/11/2024 9:04 AM EDT 10/11/2024 9:31 AM EDT us Chepe West MD LAB BLOOD ORDERABLES Final Result [facility] [address] [place] [address], * (ABNORMAL) Protein and creatinine with ratio, urine (10/11/2024 9:04 AM EDT) Pathologist [facility] Protein, Urine 189 mg/dL LAB CHEMISTRY METHOD 10/11/2024 10:42 AM EDT [facility] Prot/Creat, Ur 6.30(H) <=0.20 mg/mg creat LAB CHEMISTRY METHOD 10/11/2024 10:42 AM EDT [facility] Creatinine, Urine 30.0 mg/dL LAB CHEMISTRY METHOD 10/11/2024 10:42 AM EDT [facility] Urine Urine specimen obtained by clean catch procedure / Unknown Non-blood Collection / Unknown 10/11/2024 9:04 AM EDT 10/11/2024 9:34 AM EDT Chepe West MD LAB URINE ORDERABLES Final Result Performing Organization Address City/[facility]/ZIP Co de Phone Number [facility] [address] [place] [address], [place] [phone] * Vitamin D 25 hydroxy (10/11/2024 9:04 AM EDT) [facility] Vit D, 25-Hydroxy 36.1 30.0 - 80.0 ng/mL LAB CHEMISTRY METHOD 10/11/2024 11:36 AM EDT [facility] Blood Venous blood specimen / Unknown Venipuncture / Unknown 10/11/2024 9:04 AM EDT 10/11/2024 9:33 AM EDT us Chepe West MD LAB BLOOD ORDERABLES Final Result [facility] [address] [place] [address], [place] [phone] * Uric acid (10/11/2024 9:04 AM EDT) [facility] Uric Acid 6.4 3.1 - 7.8 mg/dL LAB CHEMISTRY METHOD 10/11/2024 10:27 AM EDT [facility] Blood Venous blood specimen / Unknown Venipuncture / Unknown 10/11/2024 9:04 AM EDT 10/11/2024 9:33 AM EDT us Chepe West MD LAB BLOOD ORDERABLES Final Result Performing Organization Address City/[facility]/ZIP Co de Phone Number [facility] [address] [place] [address], [place] [phone] * Phosphorus (10/11/2024 9:04 AM EDT) Phosphorus 4.0 2.5 - 4.5 mg/dL LAB CHEMISTRY METHOD 10/11/2024 10:28 AM EDT [facility] Blood Venous blood specimen / Unknown Venipuncture / Unknown 10/11/2024 9:04 AM EDT 10/11/2024 9:33 AM EDT us Chepe West MD LAB BLOOD ORDERABLES Final Result Performing Organization Address [facility]/ZIP Co de Phone Number [facility] [address] [place] [address], [place] [phone] * Parathyroid hormone intact (10/11/2024 9:04 AM EDT) PTH 43.2 18.5 - 88.0 pcg/mL LAB CHEMISTRY METHOD 10/11/2024 11:36 AM EDT [facility] Blood Venous blood specimen / Unknown Venipuncture / Unknown 10/11/2024 9:04 AM EDT 10/11/2024 9:33 AM EDT us Chepe West MD LAB BLOOD ORDERABLES Final Result [facility] [address] [place] [address], [place] [phone] * Magnesium (10/11/2024 9:04 AM EDT) Pathologist [facility] Magnesium 2.6 1.9 - 2.6 mg/dL LAB CHEMISTRY METHOD 10/11/2024 10:27 AM [facility] Blood Venous blood specimen / Unknown Venipuncture / Unknown 10/11/2024 9:04 AM EDT 10/11/2024 9:33 AM EDT us Chepe West MD LAB BLOOD ORDERABLES Final Result [facility] [address] [place] [address], * (ABNORMAL) Comprehensive metabolic panel (10/11/2024 9:04 AM EDT) [facility] Sodium 140 133 - 145 mmol/L LAB CHEMISTRY METHOD 10/11/2024 10:28 AM [facility] Potassium 4.6 3.5 - 5.5 mmol/L LAB CHEMISTRY METHOD 10/11/2024 10:28 AM [facility] Chloride 109 96 - 110 mmol/L LAB CHEMISTRY METHOD 10/11/2024 10:28 AM [facility] CO2 26 21 - 32 mmol/L LAB CHEMISTRY METHOD 10/11/2024 10:28 AM [facility] Anion Gap 5 3 - 11 LAB CHEMISTRY METHOD 10/11/2024 10:28 AM [facility] Glucose 127(H) 70 - 100 mg/dL LAB CHEMISTRY METHOD 10/11/2024 10:28 AM [facility] BUN 34(H) 5 - 25 mg/dL LAB CHEMISTRY METHOD 10/11/2024 10:28 AM [facility] Creatinine 1.99(H) 0.50 - 1.10 mg/dL LAB CHEMISTRY METHOD 10/11/2024 10:28 AM [facility] eGFR 26(L) >=60 mL/min/1. 73m2 LAB CHEMISTRY METHOD 10/11/2024 10:28 AM [facility] Comment:Calculation based on the Chronic Kidney Disease Epidemiology Collaboration (CKD-EPI) equation refit without adjustment for race. BUN/Creatinine Ratio 17.1 LAB CHEMISTRY METHOD 10/11/2024 10:28 AM [facility] Calcium 9.8 8.5 - 10.5 mg/dL LAB CHEMISTRY METHOD 10/11/2024 10:28 AM [facility] AST (SGOT) 13 10 - 42 unit/L LAB CHEMISTRY METHOD 10/11/2024 10:28 AM [facility] ALT (SGPT) 18 10 - 60 unit/L LAB CHEMISTRY METHOD 10/11/2024 10:28 AM [facility] Alkaline Phosphatase 61 42 - 121 unit/L LAB CHEMISTRY METHOD 10/11/2024 10:28 AM [facility] Total Protein 7.4 6.0 - 8.0 g/dL LAB CHEMISTRY METHOD 10/11/2024 10:28 AM [facility] Albumin 3.5 3.2 - 5.0 g/dL LAB CHEMISTRY METHOD 10/11/2024 10:28 AM [facility] Total Bilirubin 1.0 0.0 - 1.4 mg/dL LAB CHEMISTRY METHOD 10/11/2024 10:28 AM [facility] Blood Venous blood specimen / Unknown Venipuncture / Unknown 10/11/2024 9:04 AM EDT 10/11/2024 9:33 AM EDT us Chepe West MD LAB BLOOD ORDERABLES Final Result [facility] [address] [place] [address], * Lipid panel with reflex to direct LDL (08/07/2024 9:03 AM EDT) Cholesterol 149 0 - 200 mg/dL LAB CHEMISTRY METHOD 08/07/2024 2:48 PM EDT [facility] Triglycerides 120 0 - 150 mg/dL LAB CHEMISTRY METHOD 08/07/2024 2:48 PM EDT [facility] HDL 70 >=40 mg/dL LAB CHEMISTRY METHOD 08/07/2024 2:48 PM EDT [facility] LDL Calculated 55 0 - 100 mg/dL LAB CHEMISTRY METHOD 08/07/2024 2:48 PM EDT [facility] VLDL Cholesterol Keven 24 mg/dL LAB CHEMISTRY METHOD 08/07/2024 2:48 PM EDT [facility] Non HDL Chol. (LDL+VLDL) 79 <145 mg/dL LAB CHEMISTRY METHOD 08/07/2024 2:48 PM EDT [facility] Chol/HDL Ratio 2.1 0.0 - 4.4 LAB CHEMISTRY METHOD 08/07/2024 2:48 PM EDT [facility] Blood Venous blood specimen / Unknown Venipuncture / Unknown 08/07/2024 9:03 AM EDT 08/07/2024 9:03 AM EDT Ilene NAVARRO LAB BLOOD ORDERABLES Final Re sult [facility] [address] [place] [address], [place] [phone] * (ABNORMAL) Microalbumin creatinine urine ratio (08/07/2024 9:03 AM EDT) Creatinine, Urine 84.0 mg/dL LAB CHEMISTRY METHOD 08/07/2024 3:32 PM EDT [facility] Microalb, Ur 5,780.0(H ) 0.0 - 29.0 mg/L LAB CHEMISTRY METHOD 08/07/2024 3:32 PM EDT [facility] Comment:Results verified by repeat testing Microalb/Crea t Ratio 6,881(H) <30 mg/g creat LAB CHEMISTRY METHOD 08/07/2024 3:32 PM EDT [facility] Urine Urine specimen from urethra / Unknown Non-blood Collection / Unknown 08/07/2024 9:03 AM EDT 08/07/2024 9:03 AM EDT us Ilene NAVARRO LAB URINE ORDERABLES Final Re sult Performing Organization Address [facility]/ZIP Co de Phone Number [facility] [address] [place] [address], [place] [phone] * Hemoglobin A1c (08/07/2024 9:03 AM EDT) Hemoglobin A1C 5.9 <6.5 % LAB CHEMISTRY METHOD 08/07/2024 2:26 PM EDT [facility] Mean Bld Glu Estim. 123 mg/dL LAB CHEMISTRY METHOD 08/07/2024 2:26 PM EDT [facility] Blood Venous blood specimen / Unknown Venipuncture / Unknown 08/07/2024 9:03 AM EDT 08/07/2024 9:03 AM EDT us Ilene NAVARRO LAB BLOOD ORDERABLES Final Re sult [facility] [address] [place] [address], [place] [phone] * SCR MAMMO BI INCL CAD (08/08/2023 [...] bone mineral density by WHO criteria. The [facility] recommends using National [...] alternative screening schedule based on josephine Presley., [facility] June 02, 2011 for patients with osteopenia [...] bone mineral density by WHO criteria. The [facility] of [facility] Medicine recommendsusing National Osteoporosis [...] alternative screening schedule based on josephine Presley., [facility] for patients with osteopenia (based on [...] PM EDT Narrative 07/28/2023 3:[address] [facility] Diagnostic Imaging Department [address] [place], [place] [id number] Patient: SUDHEER ANGEL /Age/Sex: 1950 - 72 - F Unit#: [id number] Location/Status: SPDICATLS/REG CLI Mnemonic/Ordering Site: [facility] Ordering Physician: STEPHANE RILEY MD CT [...] Procedure Note Lexie Burns MD - 01/01/2024 [facility] Diagnostic Imaging Department [address] [place] [id number] Patient: SUDHEER ANGEL Dixon /Age/Sex: 1950 - 72 - F Unit#: [id number] Location/Status: [facility] CLI Mnemonic/Ordering Site: [facility] Ordering Physician: STEPHANE RILEY MD CT Lung [...] to Health Maintenance Insurance [employer] [place] [address] Care Teams Service Order Dispatcher Relationship Specialty Start Date End Date Bibiana Hall MD [address] [place] [address] PCP - General Internal Medicine 04/27/21
--- OUTSIDE RECORDS SUMMARY | 2024-12-04 08:06 | XMS_ITS | Clinical Summary ---
Author Organization [facility] Address [address] [facility] [address] [place] [address] Phone Care Team Providers Care Electrical Products Engineer Name Role Phone Bibiana Hall MD Primary Care Provider Allergies Active Allergy Reactions Criticality Noted Date [...] Office Communication [facility] [address] [phone] Niki Gamboa 11/01/2024 Orders Only [facility] [address] [phone] Chepe West MD 10/24/2024 Office Communication [facility] [address] [phone] Niki Gamboa 10/24/2024 Telephone [facility] [address] [phone] Niki Gamboa 10/17/2024 9:00 AM EDT Office Visit [facility] [address] [place] [phone] Chepe West MD Stage 3b chronic kidney disease (HCC) (Primary Dx); Proteinuria, not otherwise specified; Peripheral arterial occlusive disease (HCC); Hypertension; Diabetic glomerulonephritis (HCC); Diabetes mellitus, not otherwise specified (HCC); Arteriosclerotic vascular disease 10/16/2024 Orders Only [facility] [address] [place] [phone] Chepe West MD Stage 3b chronic kidney disease (HCC); Proteinuria, not otherwise specified; Peripheral arterial occlusive disease (HCC); Diabetic glomerulonephritis (HCC); H/O: atrial fibrillation; Hypertension 10/11/2024 Orders Only [facility] [address] [phone] Chepe West MD 10/04/2024 Refill [facility] [address] [facility] [address] [place] [phone] Chepe West MD from Last 3 Months [...] Orders Only [facility] [address] [place] [phone] Chepe West MD [address] [phone] Stage 3b chronic kidney disease (HCC); Proteinuria, not otherwise specified; Peripheral arterial occlusive disease (HCC); Hypertension; Diabetic glomerulonephritis (HCC); Diabetes mellitus, not otherwise specified (HCC); Arteriosclerotic vascular disease 12/18/2024 9:00 AM EDT Office Visit [facility] [address] [phone] Chepe West MD [address] [phone] Health Maintenance Due Date Last Done Comments [...] EDT) Hgb 13.3 11.5 - 16.0 g/dL [facility] Hematocrit 41.3 35.0 - 47.0 % [facility] 11/01/2024 2:25 PM EDT 11/01/2024 2:47 PM EDT Chepe West MD LAB BLOOD ORDERABLES Final Re sult Performing Organization Address [facility]/ZIP Co de Phone Number [facility] [address] [place] [address] * Protime-INR (11/01/2024 10:22 AM EDT) [facility] Protime 11.8 10.6 - 13.9 sec [facility] INR 0.9 [facility] 11/01/2024 10:2 2 AM EDT 11/01/2024 10:22 AM EDT Chepe West MD LAB BLOOD ORDERABLES Final Re sult Performing Organization Address City/[facility]/ZIP Co de Phone Number [facility] [address] [place] [address] * (ABNORMAL) CBC auto differential (10/11/2024 9:04 AM EDT) WBC 7.0 4.8 - 10.8 K/[facility] RBC 4.40 3.80 - 4.80 M/[facility] Hgb 13.1 11.5 - 16.0 g/dL [facility] Hematocrit 40.1 35.0 - 47.0 % [facility] MCV 92.2 79.0 - 98.0 FL [facility] MCH 30.1 27.0 - 32.0 pcg [facility] MCHC 32.7 32.0 - 37.0 g/dL [facility] RDW 14.4 11.0 - 15.0 % [facility] Platelets 232 130 - 400 K/[facility] MPV 11.3(H) 7.0 - 11.0 FL [facility] nRBC Count 0.0 <1.0 % [facility] NRBC Absolute 0.00 <0.10 [facility] Bands Relative 57.3 % [facility] Lymphocyte Realative Percent 27.4 % [facility] Monocyte Relative Percent 10.4 % [facility] Eosinophil Relative Percent 4.0 % [facility] Basophils Relative Diff 0.6 % [facility] Immature Granulocytes 0.3 % [facility] Neutrophils Absolute 4.04 1.50 - 7.00 [facility] Lymphocytes Absolute 1.93 1.00 - 5.00 [facility] Monocytes Absolute 0.73 0.20 - 1.00 [facility] Eosinophil Absolute 0.28 0.00 - 0.50 [facility] Basophil ABS 0.04 0.00 - 0.20 [facility] Immature Grans (Absolute) 0.02 0.00 - 0.03 [facility] 10/11/2024 9:04 AM EDT 10/11/2024 9:31 AM EDT us Chepe West MD LAB BLOOD ORDERABLES Final Re sult Performing Organization Address [facility] Co de Phone Number [facility] [address] [place] [address] * (ABNORMAL) Protein, Total, Random Urine w/Creatinine (Protein/Creat Ratio) (10/11/2024 9:04 AM EDT) Protein, Ur 189 mg/dL [facility] Urine Protein/Creati nine Ratio 6.30(H) <=0.20 mg/mg creat [facility] Creatinine, Urine 30.0 mg/dL [facility] Urine specimen (specimen) Urine specimen obtained by clean catch procedure / Unknown 10/11/2024 9:04 AM EDT 10/11/2024 9:34 AM EDT us Chepe West MD LAB URINE ORDERABLES Final Re sult Performing Organization Address [facility] Co de Phone Number [facility] [address] [place] [address] * Vitamin D 25 Hydroxy (10/11/2024 9:04 AM EDT) Vitamin D, 25-OH, Total 36.1 30.0 - 80.0 ng/mL [facility] Blood specimen (specimen) Venous blood / Unknown 10/11/2024 9:04 AM EDT 10/11/2024 9:33 AM EDT us Chepe West MD LAB BLOOD ORDERABLES Final Re sult Performing Organization Address City/[facility]/ZIP Co de Phone Number [facility] [address] [place] [address] * Uric Acid (10/11/2024 9:04 AM EDT) Uric Acid 6.4 3.1 - 7.8 mg/dL [facility] Blood specimen (specimen) Venous blood / Unknown 10/11/2024 9:04 AM EDT 10/11/2024 9:33 AM EDT us Chepe West MD LAB BLOOD ORDERABLES Final Re sult Performing Organization Address [facility]/ZIP Co de Phone Number [facility] [address] [place] [address] * Phosphorus (10/11/2024 9:04 AM EDT) [facility] Phosphorus 4.0 2.5 - 4.5 mg/dL [facility] Blood specimen (specimen) Venous blood / Unknown 10/11/2024 9:04 AM EDT 10/11/2024 9:33 AM EDT us Chepe West MD LAB BLOOD ORDERABLES Final Re sult Performing Organization Address [facility] Co de Phone Number [facility] [address] [place] [address] * PTH, Intact (10/11/2024 9:04 AM EDT) Pathologist [facility] PTH 43.2 18.5 - 88.0 pcg/mL [facility] Blood specimen (specimen) Venous blood / Unknown 10/11/2024 9:04 AM EDT 10/11/2024 9:33 AM EDT us Chepe West MD LAB BLOOD ORDERABLES Final Re sult Performing Organization Address [facility] de Phone Number [facility] [address] [place] [address] * Magnesium (10/11/2024 9:04 AM EDT) Pathologist [facility] Magnesium 2.6 1.9 - 2.6 mg/dL [facility] Blood specimen (specimen) Venous blood / Unknown 10/11/2024 9:04 AM EDT 10/11/2024 9:33 AM EDT us Chepe West MD LAB BLOOD ORDERABLES Final Re sult [facility] [address] [place] [address] * (ABNORMAL) Comprehensive Metabolic Panel (10/11/2024 9:04 AM EDT) Sodium 140 133 - 145 mmol/L [facility] Potassium 4.6 3.5 - 5.5 mmol/L [facility] Chloride 109 96 - 110 mmol/L [facility] Bicarbonate (CO2) 26 21 - 32 mmol/L [facility] Anion Gap 5 3 - 11 [facility] Glucose 127(H) 70 - 100 mg/dL [facility] BUN 34(H) 5 - 25 mg/dL [facility] Creatinine Serum 1.99(H) 0.50 - 1.10 mg/dL [facility] eGFR 26(L) >=60 mL/min/1. 73m2 [facility] Comment:Calculation based on the Chronic Kidney Disease Epidemiology Collaboration (CKD-EPI) equation refit without adjustment for race. BUN/Creatinine Ratio 17.1 [facility] Calcium 9.8 8.5 - 10.5 mg/dL [facility] AST (SGOT) 13 10 - 42 unit/L [facility] ALT (SGPT) 18 10 - 60 unit/L [facility] Alkaline Phosphatase 61 42 - 121 unit/L [facility] Total Protein 7.4 6.0 - 8.0 g/dL [facility] Albumin 3.5 3.2 - 5.0 g/dL [facility] Total Bilirubin 1.0 0.0 - 1.4 mg/dL [facility] Blood specimen (specimen) Venous blood / Unknown 10/11/2024 9:04 AM EDT 10/11/2024 9:33 AM EDT Chepe West MD LAB BLOOD ORDERABLES Final Re sult [facility] [address] [place] [address] * (ABNORMAL) EXT RESULT ENTRY (10/20/2022) Sodium 141 137 - 147 Potassium 4.1 3.4 - 5.5 Chloride 107.0 99.0 - 108.0 Carbon Dioxide 29 mmol/L Anion Gap 5 <=30 MMOL/L Glucose 131 60 - 200 BUN 18 4 - 21 mg/dL Creatinine 1.12(A) 0.50 - 1.10 mg/dL Calcium 10.2 8.7 - 10.7 mg/dL eGFR Non-Afr [place] 52 Hemoglobin A1C 5.8 4.0 - 6.0 10/20/2022 Historical Provider LAB BLOOD ORDERABLES Diana l Result from Last 3 Months or Most Recently Relevant to Health Maintenance Insurance [address] [place] [id number] [employer] Medicare Care Teams Electrical Products Engineer Relationship Specialty Start Date End Date Bibiana Hall MD [address] [place] [id number] PCP - General Internal Medicine 04/17/24
--- NOTE | 2024-12-04 08:21 | A.OFFVIS_ITS ---
Vital Signs 12/04/24 08:22 Height 5 ft 5 in Weight 196 lb BMI 32.6 BP 110/62 Blood Pressure Location Rt brachial Position Sitting Pulse 68 Pulse Source Pulse Oximeter Intake Visit Reasons: 6m follow up Allergies lisinopril Adverse Reaction (Unknown, Verified 09/30/24 10:32) Cough Medication List - Last Reconciled 12/04/24 by David Christensen MD amlodipine 10 mg PO DAILY aspirin 81 mg PO DAILY carvedilol 12.5 mg PO BID cilostazol 100 mg PO BID clopidogrel 75 mg PO DAILY losartan 100 mg PO DAILY multivitamin (Daily Multi-Vitamin tablet) 1 tab PO DAILY rosuvastatin 40 mg PO DAILY solifenacin (Vesicare) 5 mg PO DAILY HPI Comments Details: Leslie returns for follow-up regarding vascular disease. To recall, she had peripheral angiogram with left iliac artery stenting 2016. However that was complicated by massive blood loss leading to hypovolemic shock. In that context, she had a non ST elevation myocardial infarction suspected to be from demand. But she was able to recover eventually. In November of 2023, she underwent VATS with lobectomy for lung cancer. Apparently that went well without any issues. Since last seen, no new concerns. She states she feels good. [facility] Medical History (Updated 01/22/24 @ 09:10 by Elizabeth Duran MD) Essential hypertension Peripheral vascular disease Atherosclerotic cardiovascular disease Surgical History S/P lobectomy of lung (~11/13/23) History of carotid endarterectomy (~03/2019) Family History Father No problems noted. Mother No problems noted. Social History Household Members: None Alcohol intake: current Alcohol intake frequency: holidays/special occasions only Patient Tobacco Use Status: Former Tobacco user Years Smoked: 50 +/- service: No Current occupational status: retired Review of Systems Const Denies weakness ENT Denies dizziness Card Denies chest pain, Denies chest pain with activity, Denies syncope, Denies rapid heart rate, Denies pedal edema, Denies edema, Denies leg edema, Denies lightheadedness, Denies palpitations, Denies dyspnea, Denies dyspnea on exertion and Denies orthopnea Resp Denies cough, Denies dyspnea and Denies dyspnea on exertion GI Denies hematochezia and Denies change in stool character Musc Denies abnormal gait, Denies muscle cramps, Denies muscle weakness, Denies numbness, Denies radiating pain into limb and Denies tingling Neuro Denies abnormal gait, Denies dizziness, Denies syncope, Denies numbness, Denies tingling and Denies weakness Endo Denies palpitations Physical Exam Vital Signs: Last Vital Signs Pulse 68 12/04/24 08:22 BP 110/62 12/04/24 08:22 BMI result Body Mass Index 32.6 Const General: comfortable and no acute distress Orientation/consciousness: patient oriented x3 HEENT Other: Unremarkable Head: Yes normal to inspection Neck Neck: Yes normal visual inspection Chest Chest palpation & inspection: normal inspection of the chest Resp Auscultation: clear to auscultation bilaterally Cardio Palpation: normal PMI Heart sounds: S1 normal heart sound present, S2 normal heart sound present, no gallops, Murmur heart sound present systolic III/ and at the right sternal border and no rubs GI Palpation (GI): Soft to palpation Back/Spine/Pelvis Other: unremarkable Skin General skin exam: no rashes or lesions noted Neuro General: patient oriented x3 Extrem General: Yes normal to inspection Psych Mental Status: mental status grossly normal Assessment & Plan Assessment & Plan (1) Atherosclerotic cardiovascular disease: Code(s): I25.10 - Atherosclerotic heart disease of [place] coronary artery without angina pectoris Category: Medical Plan: Clinically, no angina. Myocardial perfusion imaging 2020 without any clear abnormalities. Echocardiogram 2024-hyperdynamic LVEF; severe left atrial dilatation; severe mitral calcification with mild regurgitation. Overall, treat for stable vascular disease. Continue statins. Lipids are well controlled. (2) Peripheral vascular disease: Code(s): I73.9 - Peripheral vascular disease, unspecified Category: Medical Plan: She has had carotid endarterectomy in the left side. Her vascular issues now being followed at [facility]. She remains on long-term dual antiplatelet therapy. (3) Essential hypertension: Code(s): I10 - Essential (primary) hypertension Category: Medical Plan: On carvedilol, amlodipine, losartan. No changes. Plan Total time spent including review of data, counseling, documentation, coordination of care-31 minutes. Coding Level of Care Code Est Pt Level 4 (18358) Complex EM visit Add On G2211 Diagnoses Atherosclerotic cardiovascular disease I25.10 Peripheral vascular disease I73.9 Essential hypertension I10
[2024-12-04 08:22] VITALS: BP 110/62; PULSE 68; BMI 32.6
== END 2024-12-04 08:40 | disposition home or self-care (01) ==
LOC: HO.HCS 08:02
PROVIDERS: PCP Internal Medicine; Visit Provider Internal Medicine
DX: I25.10 Atherosclerotic heart disease of native coronary artery without angina pectoris (principal); I73.9 Peripheral vascular disease, unspecified; I10 Essential (primary) hypertension
CPT/HCPCS: 99214; G2211

== ENCOUNTER → 2024-12-04 08:02 | Outpatient (BNVA) | payer MEDICARE, SELFPAY | PROVIDERS: PCP Internal Medicine; Visit Provider Internal Medicine | DX: I25.10 Atherosclerotic heart disease of native coronary artery without angina pectoris (principal); I10 Essential (primary) hypertension; I73.9 Peripheral vascular disease, unspecified | CPT/HCPCS: 99212 ==